=== PATIENT | male | born 1955 | race Caucasian/White ===

== ENCOUNTER 2020-06-15 10:55 | Outpatient (REF) | payer MEDICARE, SELFPAY ==
[2020-06-15 16:50] LABS: Anion Gap 11 (12-20); Blood Urea Nitrogen 29 mg/dL (9-16); Calcium 10.1 mg/dL (8.4-10.2); Carbon Dioxide 30 mmol/L (22-29); Chloride 104 mmol/L (96-108); Estimated Glomerular Filt Rate > 60; Glucose Random 112 mg/dL (60-115); Potassium 3.8 mmol/l (3.3-5.1); Sodium 141 mmol/L (135-145)
== END 2020-06-15 10:56 | disposition home or self-care (01) ==
LOC: HO.LAB 10:55
PROVIDERS: PCP Internal Medicine; Visit Provider Internal Medicine Cardiovascular Disease
DX: I11.9 Hypertensive heart disease without heart failure (principal); E78.5 Hyperlipidemia, unspecified; E11.9 Type 2 diabetes mellitus without complications; G47.33 Obstructive sleep apnea (adult) (pediatric); E66.9 Obesity, unspecified; Z79.899 Other long term (current) drug therapy; Z79.84 Long term (current) use of oral hypoglycemic drugs
CPT/HCPCS: 80048; 82088; 82533; 99212

== ENCOUNTER 2020-06-24 10:02 | Outpatient (REF) | payer MEDICARE, SELFPAY ==
--- NOTE | 2020-06-24 10:05 | US_ITS ---
EXAMINATION: US RETROPERITONEAL LIMITED (RENAL ONLY) US RENAL DOPPLER CLINICAL INFORMATION: Hypertension. COMPARISON: Previous CT of the abdomen and pelvis February 2019 TECHNIQUE: Doppler color and padilla-scale evaluation of the kidneys, bilateral renal arteries and aorta including waveform spectral analysis. FINDINGS: RIGHT KIDNEY: 11.3 x 5.3 x 5.2 cm (SAG x AP x TRV). The kidney is normal in size, contour, and echogenicity. Renal cortical thickness is normal. There is a 2.3 x 2.6 x 2.6 cm peripelvic cyst. No calculi or mass. No hydronephrosis. LEFT KIDNEY: 12.5 x 5.7 x 4 cm (SAG x AP x TRV). The kidney is normal in size, contour, and echogenicity. Renal cortical thickness is normal. There is a 1.2 x 1.3 x 1.2 cm simple cyst in the upper pole. No calculi or focal mass. No hydronephrosis. RENAL DOPPLER EXAM: The peak systolic velocity of the mid abdominal aorta is slightly elevated measuring 119 cm/s making it suboptimal for evaluation of renal artery to aorta ratio. Right renal artery peak systolic velocities are normal measuring 133 cm/s proximally, 144 cm/s in the midportion and 158 cm/s distally. Renal artery to aorta ratio is suboptimal due to elevated peak systolic velocity in the mid abdominal aorta. This measures 1.1 cm on the right. Resistive indices in the segmental renal arteries in the right kidney are normal measuring 0.7. The right renal vein is patent. The left renal artery is slightly difficult to visualize due to bowel gas. Left renal artery peak systolic velocities are normal measuring 123 cm/s proximally, 81 cm/s in the midportion and 68 cm/s distally. Again, evaluation of renal artery to aorta ratio is suboptimal due to elevated peak systolic velocity in the aorta. This measures 1. Resistive indices in the segmental renal arteries in the left kidney are normal measuring 0.7. The left renal vein is patent. US/US renal doppler IMPRESSION: Bilateral renal cysts. No evidence of renal artery stenosis is seen. Slightly elevated peak systolic velocity in the mid abdominal aorta making calculation of the aortic renal artery to aorta ratio is suboptimal.
== END 2020-06-24 10:03 | disposition home or self-care (01) ==
LOC: HO.HMGCX 10:02
PROVIDERS: PCP Internal Medicine; Visit Provider Internal Medicine Cardiovascular Disease
DX: I11.9 Hypertensive heart disease without heart failure (principal)
CPT/HCPCS: 76775; 93975

== ENCOUNTER → 2020-07-12 15:00 | Outpatient (BNVA) | payer MEDICARE, SELFPAY | PROVIDERS: PCP Student in an Organized Health Care Education/Training Program; Visit Provider Internal Medicine Cardiovascular Disease | DX: I11.9 Hypertensive heart disease without heart failure (principal) | CPT/HCPCS: 99212 ==

== ENCOUNTER → 2020-10-10 15:12 | Outpatient (BNVA) | payer MEDICARE, SELFPAY | PROVIDERS: PCP Student in an Organized Health Care Education/Training Program; Visit Provider Internal Medicine Cardiovascular Disease | DX: I11.9 Hypertensive heart disease without heart failure (principal) | CPT/HCPCS: 99212 ==

== ENCOUNTER → 2021-04-20 13:50 | Outpatient (BNVA) | payer MEDICARE, SELFPAY | PROVIDERS: PCP Student in an Organized Health Care Education/Training Program; Visit Provider Internal Medicine Cardiovascular Disease | DX: I11.9 Hypertensive heart disease without heart failure (principal); I10 Essential (primary) hypertension; I45.10 Unspecified right bundle-branch block; E78.5 Hyperlipidemia, unspecified; E66.9 Obesity, unspecified; G47.33 Obstructive sleep apnea (adult) (pediatric); Z99.89 Dependence on other enabling machines and devices; Z79.84 Long term (current) use of oral hypoglycemic drugs; Z79.899 Other long term (current) drug therapy | CPT/HCPCS: 93005; 99212 ==

== ENCOUNTER → 2021-08-15 08:35 | Outpatient (REF) | payer MEDICARE, SELFPAY ==
--- NOTE | 2021-08-15 08:38 | CA_ITS ---
Transthoracic Echocardiogram Patient (Last, First, Middle): Cory Rodriguez, Gender: Male Date of : 1955 Age: 65 Procedure Date: 08/15/2021 Procedure Type: Transthoracic Echocardiogram Location: OP Height: 175.26 cm Weight: 95.26 kg BSA: 2.11 m2 Heart Rate: bpm BP: 133 / 79 mmHg Dice Person: FOREIGN Referring MD: Cameron Rain MD Symptoms: I11.9 - Hypertensive heart disease without heart failure Study Quality: Good ECG Rhythm: Sinus Conclusions: - The left ventricular systolic function is normal. The visually estimated ejection fraction is between 65-70%. - Possible basal inferior hypokinesis, but can also be technical. - No obvious valvular pathology seen on this study. Findings Left Ventricle Normal left ventricular cavity size. There is moderately increased left ventricular wall thickness. The left ventricular systolic function is normal. The visually estimated ejection fraction is between 65-70%. Diastolic function is normal for age. Possible basal inferior hypokinesis, but can also be technical. LV peak GLS -22.4%. Right Ventricle Normal right ventricular cavity size and systolic function. Atria Both atria are normal in size. Aortic Valve There is a normal trileaflet aortic valve. There is no aortic valve stenosis. There is no aortic valve regurgitation. Mitral Valve The mitral valve appears normal. There is no mitral valve regurgitation. There is no mitral valve stenosis. Pulmonic Valve The pulmonic valve was not well visualized. Tricuspid Valve Normal tricuspid valve structure. There is trace tricuspid valve regurgitation. The pulmonary artery systolic pressure is normal. Great Vessels The aortic annulus, sinuses of valsalva, and asc aorta are normal in size. Venous The inferior vena cava is normal in size and collapses greater than 50% with inspiration. Pericardium/Pleural There is no evidence of pericardial effusion. Prior Study Comparison No significant change compared to prior study dated: 12/08/2019. Inferior wall finding more obvious in current study, but likely unchanged. Recommendations, Care & Conclusions No obvious valvular pathology seen on this study. Measurements M-Mode Liner Measurements Normals - Women/Men LVIDd: 4.93 3.9-5.3/4.2-5.9 cm LVIDd Index: 2.34 1.9-3.2 cm/m2 LVIDs: 2.03 2.0-3.8 cm LVPWd: 0.92 0.6-0.9/0.6-1.0 cm M-Mode Volumes LV EDV: 114.00 LV ESV: 13.20 2D Linear Measurements IVSd: 1.60 0.6-0.9/0.6-1.0 cm LVIDd: 4.69 3.9-5.3/4.2-5.9 cm LVIDd Index: 2.22 2.4-3.2/2.2-3.1 cm/m2 LVIDs: 1.81 2.0-3.6 cm LVPWd: 1.29 0.7-1.1 cm LA Diam: 3.80 2.7-3.8/3.0-4.0 cm LAIDs Index: 1.80 1.5-2.3 cm/m2 LV Mass: 345.65 67-162/88-224 g LV Mass Index: 163.82 43-95/49-115 g/m2 LVOT Diam: 2.10 3.0+(-)1.3 cm 2D Systolic Function EF 4C: 71.70 >55% EF 2C: 79.10 >55% EF BiP: 74.20 >55% M-Mode Systolic Function FS: 58.80 27-47/25-43% LVEF: 88.40 >55% Mitral Valve MV Pk E: 0.70 MV PK A: 0.75 MV Decel Time: 232.00 E/A: 0.90 PHT: 68.00 MVA PHT: 3.24 Decel Geary: 3.01 Aortic Valve AoV Pk Jeo: 1.36 AoV Pk Grad: 7.00 LVOT LVOT Pk Joe: 1.16 LVOT Mn Joe: 0.86 LVOT VTI: 0.27 LVOT Pk Grad: 5.00 LVOT Mn Grad: 3.00 LVOT Diam: 2.10 LVOT Area: 3.46 Diastolic Function MV Pk E: 0.70 MV Pk A: 0.75 E/A: 0.90 Right Ventricle TAPSE (mm): 2.53 Tricuspid Valve TR Pk Joe: 2.05 TR Pk Grad: 17.00 RA Press: 3.00 RVSP: 20.00 Great Vessels Aorta Ao Asc: 3.30 2.1-3.4 cm Updated in Other Vendor System with Status of Final Edson Johnson MD electronically signed on 08/15/2021 4:38:13 PM with status of Final
== END ==
LOC: HO.CARD 08:35
PROVIDERS: PCP Internal Medicine; Visit Provider Internal Medicine Cardiovascular Disease
DX: I11.9 Hypertensive heart disease without heart failure (principal)
CPT/HCPCS: 93306

== ENCOUNTER → 2021-10-17 08:29 | Outpatient (BNVA) | payer MEDICARE, SELFPAY | PROVIDERS: PCP Internal Medicine; Referring Provider Internal Medicine; Visit Provider Internal Medicine Cardiovascular Disease | DX: I11.9 Hypertensive heart disease without heart failure (principal); E11.9 Type 2 diabetes mellitus without complications; E78.5 Hyperlipidemia, unspecified; G47.33 Obstructive sleep apnea (adult) (pediatric); Z99.89 Dependence on other enabling machines and devices; Z79.84 Long term (current) use of oral hypoglycemic drugs; Z79.899 Other long term (current) drug therapy | CPT/HCPCS: 99212 ==

== ENCOUNTER 2022-01-25 08:39 | Outpatient (REF) | payer MEDICARE, SELFPAY ==
--- NOTE | 2022-01-25 | EMG_ITS ---
Left tibial and peroneal motor studies were performed. Left superficial peroneal and sural sensory studies were performed. Both lateral femoral cutaneous sensory studies were performed. Tibial H-reflex was obtained and paraspinal muscles were tested with a needle. IMPRESSION: 1. Left lateral femoral cutaneous neuropathy. 2. 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 3. Chronic left lower lumbar radiculopathy. MD JACKIE Suresh/VANESSA / [id number]
== END 2022-01-25 08:40 | disposition home or self-care (01) ==
LOC: HO.NEURO 08:39
PROVIDERS: Visit Provider Internal Medicine
DX: G62.9 Polyneuropathy, unspecified (principal); R20.8 Other disturbances of skin sensation
CPT/HCPCS: 95886; 95910

== ENCOUNTER → 2022-10-12 07:58 | Outpatient (REF) | payer MEDICARE, SELFPAY ==
--- NOTE | 2022-10-12 08:00 | CA_ITS ---
Transthoracic Echocardiogram Patient (Last, First, Middle): Cory Rodriguez, Gender: Male Date of : 1955 Age: 66 Procedure Date: 10/12/2022 Procedure Type: Transthoracic Echocardiogram Location: OP Height: 175.26 cm Weight: 97.52 kg BSA: 2.13 m2 Heart Rate: 56 bpm BP: 125 / [address] Cutter: ZACH Referring MD: Cameron Rain MD Symptoms: I11.9 - Hypertensive heart disease without heart failure Study Quality: Adequate Conclusions: - Normal left ventricular cavity size. There is moderately increased left ventricular wall thickness. The left ventricular systolic function is hyperdynamic. The visually estimated ejection fraction is >70%. - The basal inferior segment is akinetic. - Mildly increased right ventricular cavity size. There is normal right ventricular systolic function. - The left atrium is mildly dilated. The right atrium is mildly dilated. Findings Left Ventricle Normal left ventricular cavity size. There is moderately increased left ventricular wall thickness. The left ventricular systolic function is hyperdynamic. The visually estimated ejection fraction is >70%. There is evidence of regional wall motion abnormalities. Abnormal diastolic function is noted. Spectral Doppler is indicative of an impaired relaxation filling pattern. E/E prime ratio is between 8 and 15 consistent with indeterminate filling pressures. Wall Motion Rest Echo Findings The basal inferior segment is akinetic. Right Ventricle Mildly increased right ventricular cavity size. There is normal right ventricular systolic function. Atria The left atrium is mildly dilated. The right atrium is mildly dilated. Aortic Valve Normal aortic valve structure and function. There is no aortic valve stenosis. There is no aortic valve regurgitation. Mitral Valve The mitral valve appears normal. There is trace mitral valve regurgitation. There is no mitral valve stenosis. Pulmonic Valve Normal pulmonic valve structure and function. There is trace pulmonic valve regurgitation. Tricuspid Valve Normal tricuspid valve structure and function. There is no tricuspid valve regurgitation. Normal right atrial pressure. There is no evidence of pulmonary hypertension. Great Vessels The pulmonary artery was not well visualized. There is mild dilatation of the sinuses of Valsalva measuring 3.90 cm, mild dilatation of the ascending aorta measuring 3.50 cm, and mild dilatation of the aortic arch measuring 3.40 cm. Venous The inferior vena cava is normal in size and collapses greater than 50% with inspiration. Pericardium/Pleural There is no evidence of pericardial effusion. Prior Study Comparison Changes noted compared to prior study dated: 08/15/2021. Both atria are mildly dilated. RV is mildly dilated. Mild dilation of aorta. Measurements 2D Linear Measurements IVSd: 1.37 0.6-0.9/0.6-1.0 cm LVIDd: 4.69 3.9-5.3/4.2-5.9 cm LVIDd Index: 2.20 2.4-3.2/2.2-3.1 cm/m2 LVIDs: 3.10 2.0-3.6 cm LVPWd: 1.48 0.7-1.1 cm LA Diam: 4.00 2.7-3.8/3.0-4.0 cm LAIDs Index: 1.88 1.5-2.3 cm/m2 LV Mass: 338.52 67-162/88-224 g LV Mass Index: 158.93 43-95/49-115 g/m2 LVOT Diam: 2.20 3.0+(-)1.3 cm 2D Systolic Function EF 4C: 70.10 >55% EF 2C: 65.00 >55% EF BiP: 67.80 >55% Mitral Valve MV Pk E: 0.78 MV PK A: 1.00 MV Decel Time: 297.00 E/A: 0.80 E'Lateral: 6.85 E'Medial: 5.87 E/E' Med: 13.20 E/E' Lat: 11.30 PHT: 87.00 MVA PHT: 2.53 Decel Bartholomew: 2.62 Aortic Valve AoV Pk Joe: 1.42 AoV Mn Joe: 1.09 AoV VTI: 0.38 AoV Pk Grad: 8.00 Aov Mn Grad: 5.00 KRYSTYNA Cont.VTI: 2.94 LVOT LVOT Pk Joe: 1.21 LVOT Mn Joe: 0.84 LVOT VTI: 0.29 LVOT Pk Grad: 6.00 LVOT Mn Grad: 3.00 LVOT Diam: 2.20 LVOT Area: 3.80 Diastolic Function MV Pk E: 0.78 MV Pk A: 1.00 E/A: 0.80 E'Medial: 5.87 E/E' Med: 13.20 E' Laterial: 6.85 E/E' Lat: 11.30 Right Ventricle TAPSE (mm): 34.00 TVS' Joe: 15.20 Tricuspid Valve TR Pk Joe: 1.25 TR Pk Grad: 6.00 RA Press: 3.00 RVSP: 9.00 Great Vessels Aorta Sinus of Valsalva: 3.90 2.0-3.5 cm Ao Asc: 3.50 2.1-3.4 cm Ao Arch: 3.40 Pulmonary Valve PV Pk Joe: 1.13 Peak PV Grad: 5.00 Updated in Other Vendor System with Status of Final Cornelio Barillas MD electronically signed on 10/14/2022 12:38:37 PM with status of Final
== END ==
LOC: HO.CARD 07:58
PROVIDERS: PCP Internal Medicine; Visit Provider Internal Medicine Cardiovascular Disease
DX: I11.9 Hypertensive heart disease without heart failure (principal)
CPT/HCPCS: 93306

== ENCOUNTER 2022-11-22 15:08 | Outpatient (REF) | payer MEDICARE, SELFPAY ==
[2022-11-22 16:57] LABS: MANUAL DIFF FLAG NO
[2022-11-22 17:41] LABS: Basophils Percent Auto 0.6 % (0-2); Eosinophils Absolute Auto 0.1 X10*3/uL (0.0-0.4); Eosinophils Percent Auto 1.3 % (0-4); Hematocrit 36.4 % (42.0-52.0); Imm Gran Abs Auto 0.01 X10*3/uL (0.00-0.03); Imm Gran Pct Auto 0.2 % (0.0-0.4); Lymphocytes Absolute Auto 1.5 X10*3/uL (1.2-4.9); Lymphocytes Percent Auto 27.6 % (20-40); Mean Corpuscular Hemoglobin 29.2 pg (27.0-33.0); Mean Corpuscular Volume 88.6 fL (80.0-98.0); Monocytes Absolute Auto 0.5 X10*3/uL (0.1-1.2); Monocytes Percent Auto 8.3 % (2-11); Neutrophils Absolute Auto 3.4 x10*3/uL (2.0-8.3); Platelet Count 165 X10*3/uL (160-400); Red Blood Count 4.11 X10*6/uL (4.60-5.80); Red Cell Distribution Width 13.2 % (11.0-16.0); White Blood Count 5.4 X10*3/uL (4.8-10.8)
[2022-11-22 17:58] LABS: Anion Gap 14 (12-20); Blood Urea Nitrogen 41 mg/dL (9-16); Calcium 10.4 mg/dL (8.4-10.2); Carbon Dioxide 28 mmol/L (22-29); Chloride 106 mmol/L (96-108); Estimated Glomerular Filt Rate 38; Glucose Random 263 mg/dL (60-115); Sodium 144 mmol/L (135-145)
== END 2022-11-22 15:09 | disposition home or self-care (01) ==
LOC: HO.LAB 15:08
PROVIDERS: PCP Internal Medicine; Visit Provider Nurse Practitioner Family
DX: I48.91 Unspecified atrial fibrillation (principal); E11.9 Type 2 diabetes mellitus without complications; I11.9 Hypertensive heart disease without heart failure; G47.33 Obstructive sleep apnea (adult) (pediatric)
CPT/HCPCS: 36415; 80048; 85025; 93005; 99212

== ENCOUNTER → 2022-12-13 09:38 | Outpatient (REF) | payer MEDICARE, SELFPAY ==
--- NOTE | ~2022-12-13 | NM_ITS ---
Myocardial perfusion study Indication: Atrial fibrillation to evaluate for myocardial ischemia Technique: The patient was brought in for a Lexiscan perfusion study on 12/13/2022. Patient performed low-level exercise and was injected 0.4 mg of Lexiscan intravenously. Within a minute of injection, 30 mCi of sestamibi was given intravenously. Images were obtained using the SPECT gamma camera interlaced with the gating device. Images were obtained in supine position. Resting perfusion study was performed on 12/17/2022. Patient was administered 30 mCi of sestamibi intravenously at rest. Images were then obtained in supine position. Images obtained with and without CT attenuation. Total DLP 101 mGy-cm. Images were processed with the software and compared side to side in short axis, horizontal long axis and vertical long axis views. Findings: The stress perfusion study showed both attenuated as well as non attenuated corrected images show normal uptake of radiotracer in all segments of LV myocardium.. The gated study shows normal LV systolic function with calculated LVEF of 75%. LV cavity is normal in size. The gated study shows normal systolic wall thickening and contraction of segments. Resting study shows no change in perfusion pattern compared to stress perfusion study. Gating at rest reveals normal systolic wall motion with ejection fraction at 59%. The findings are consistent with normal myocardial perfusion. NM/NM cardiolite stress test Impression: 1. Myocardial perfusion imaging study shows normal myocardial perfusion 2. Gated LVEF is 69% 3. Transient ischemic dilatation not present EKG is nondiagnostic for ischemia
--- NOTE | 2022-12-13 09:42 | HM_ITS ---
Conclusion: 1. Patient was monitored for total period of 2 days and 23 hours 2. Baseline was normal sinus rhythm with average heart of 69 beats per minute 3. No significant pauses noted 4. Frequent PVCs noted with total burden of 1.4% with 3 short runs of wide complex suggestive of nonsustained VT with fastest at 143 beats per minute in longest at 9 beats 5. Occasional PACs noted 6. Patient reported 1 event with symptoms of shortness of breath that correlated with isolated PAC and PVC MTDD
--- NOTE | 2022-12-13 09:42 | CA_ITS ---
Acquisition Time: 2022-12-13 10:13:05 Total Exercise Time: 00:06:00 Test Indications: ,AFIB Medications: SEE EMAR Protocol: VICKEY Max HR: 137 BPM 90% of Pred: 151 BPM Max BP: 172/060 mmHG Max Work Load: 7.0 METS Exercise stress test exercise 6 min of Vickey protocol achieivng 90% MPHR, with mild SOB, without chest discomfort, with isolated PVCs and one ventricular cuplet, with normotensive response to exericse, with T wave abnormalities at baseline lead 3. aVF, V4-V6, then with 1mm horizontal ST depression V5-V6. Nondiagnostic in the setting of baseline abnormality. Nuclear images pending. Test reviewed with Dr. Barillas Referred By: Kavitha Hudson Overread By: KAVITHA HUDSON
== END ==
LOC: HO.CARD 09:38
PROVIDERS: Visit Provider Nurse Practitioner Family
DX: I48.91 Unspecified atrial fibrillation (principal)
CPT/HCPCS: 78452; 93017; 93242; A9500; J0280; J2785

== ENCOUNTER → 2022-12-31 12:29 | Outpatient (BNVA) | payer MEDICARE, SELFPAY | PROVIDERS: PCP Internal Medicine; Referring Provider Internal Medicine; Visit Provider Internal Medicine Cardiovascular Disease | DX: I48.0 Paroxysmal atrial fibrillation (principal); I11.9 Hypertensive heart disease without heart failure; Z79.01 Long term (current) use of anticoagulants; Z79.899 Other long term (current) drug therapy | CPT/HCPCS: 99212 ==

== ENCOUNTER 2023-04-22 09:50 | Outpatient (REF) | payer MEDICARE, SELFPAY | END 2023-04-22 09:51 | disposition home or self-care (01) | LOC: HO.CHCLDS 09:50 | PROVIDERS: Visit Provider Internal Medicine | DX: Z13.89 Encounter for screening for other disorder (principal) ==

== ENCOUNTER 2023-04-23 08:26 | Outpatient (REF) | payer MEDICARE, SELFPAY ==
[2023-04-23 14:44] LABS: Estimated Average Glucose 146 mg/dL; Hemoglobin A1c % 6.7 % (<6.0)
[2023-04-23 14:57] LABS: Alanine Aminotransferase 21 U/L (0-40); Alkaline Phosphatase 60 U/L (39-117); Anion Gap 14 (12-20); Aspartate Amino Transferase 18 U/L (5-37); Bilirubin Total 0.3 mg/dL (0.0-1.0); Blood Urea Nitrogen 30 mg/dL (9-16); Calcium 10.1 mg/dL (8.4-10.2); Carbon Dioxide 25 mmol/L (22-29); Chloride 107 mmol/L (96-108); Cholesterol 181 mg/dL (<200); Estimated Glomerular Filt Rate > 60; Glucose Fasting 130 mg/dL (60-99); HDL Cholesterol 44 mg/dL (>40); LDL Cholesterol Calculated 116 mg/dL (<100); Potassium 3.7 mmol/L (3.3-5.1); Sodium 142 mmol/L (135-145); Total Protein 6.7 g/dL (6.5-8.0); Triglycerides 108 mg/dL (<150)
== END 2023-04-23 08:27 | disposition home or self-care (01) ==
LOC: HO.CHCLDS 08:26
PROVIDERS: Visit Provider Internal Medicine
DX: E11.22 Type 2 diabetes mellitus with diabetic chronic kidney disease (principal); N18.31 Chronic kidney disease, stage 3a; E11.65 Type 2 diabetes mellitus with hyperglycemia
CPT/HCPCS: 36415; 80053; 80061; 83036

== ENCOUNTER 2023-07-31 10:40 | Outpatient (AMB) | payer MEDICARE, SELFPAY ==
[2023-07-31 10:42] VITALS: BP 110/68; PULSE 65; BMI 31.0
--- NOTE | 2023-07-31 10:42 | MHC.OFFVIS ---
Intake Vital Signs 07/31/23 10:42 Height 5 ft 10 in Weight 216 lb 0.848 oz BMI 31.0 BP 110/68 Blood Pressure Location Lt brachial Position Sitting Pulse 65 Intake Visit Reasons: 6 month f/u with ekg Intake Note: 6 month follow-up feeling good has a colonscpy 08/23 needs direction on eliquis [employer] Installer Required: No Allergies No Known Allergies [No Known Allergies*] Allergy (Verified 11/22/22 15:43) Medication List - Last Reconciled 07/31/23 by Cameron Rain MD amlodipine 10 mg PO DAILY apixaban (Eliquis) 5 mg PO BID ascorbate calcium (vitamin C) 500 mg PO DAILY atorvastatin 80 mg PO BEDTIME chlorthalidone 25 mg PO DAILY empagliflozin (Jardiance) 25 mg PO QAM ferrous sulfate 325 mg PO DAILY finasteride 5 mg PO DAILY losartan 100 mg PO DAILY metformin 1,000 mg PO BID metoprolol succinate ER mg PO multivitamin,[id number] (Complete Multivitamin tablet) 1 tab PO DAILY tamsulosin 0.4 mg PO DAILY HPI HPI Comments History of Present Illness Details Sukh comes for follow-up. He has had 1 episode of atrial fibrillation said while he was sitting on the couch she felt funny and took his pulse and was irregular. This lasted for about 10 minutes. There was no obvious triggers. He has not had any other episodes since then. He denies any exertional chest pain. Denies any worsening shortness of breath, orthopnea, PND, leg edema. No lightheadedness, syncope. No bleeding issues or neurologic events. [facility] Medical History Afib HTN (hypertension) Uncontrolled hypertension Hypertensive heart disease Obstructive sleep apnea Hyperlipidemia Diabetes mellitus Obesity Surgical History Hx of knee surgery Hx of transurethral resection of prostate History of nasal surgery Family History Father CVD (cardiovascular disease) Mother Cancer Review of Systems Const Denies chills, Denies fatigue, Denies fever(s), Denies frequent falls, Denies weakness, Denies weight gain and Denies weight loss ENT Denies dizziness Card Denies chest pain, Denies leg edema, Denies lightheadedness, Denies palpitations, Denies dyspnea, Denies dyspnea on exertion, Denies orthopnea and Denies other (loss of consciousness) Resp Denies cough, Denies dyspnea and Denies dyspnea on exertion GI Denies hematochezia and Denies change in stool character Musc Denies abnormal gait, Denies muscle weakness, Denies numbness, Denies radiating pain into limb and Denies tingling Neuro Denies abnormal gait, Denies dizziness, Denies frequent falls, Denies numbness, Denies tingling and Denies weakness Endo Denies fatigue and Denies palpitations Physical Exam Vital Signs: Last Vital Signs Pulse 65 07/31/23 10:42 BP 110/68 07/31/23 10:42 BMI result Body Mass Index 31.0 Const General: healthy appearing, comfortable and no acute distress Orientation/consciousness: patient oriented x3 Neck Neck: Yes normal visual inspection and Yes no JVD Resp Effort & Inspection: normal respiratory effort Auscultation: clear to auscultation bilaterally, no crackles, no rales, no rhonchi and no wheezes Cardio Jugular venous distension: no JVD Rate: regular rate Rhythm: regular rhythm Heart sounds: S1 normal heart sound present, S2 normal heart sound present, no gallops, no murmurs and no rubs Neuro General: patient oriented x3 Extrem General: Yes normal to inspection Psych Appearance: grossly normal Mental Status: mental status grossly normal Speech and movement: Normal speech and movement present Assessment & Plan Assessment & Plan (1) Paroxysmal atrial fibrillation: Code(s): I48.0 - Paroxysmal atrial fibrillation Plan: Paroxysmal atrial fibrillation which has remained suppressed. One short episode in June in the last 6 months. This is minimal burden at this point time. Discussed with him about management. Will continue pursue rhythm control approach however does not require antiarrhythmic drug therapy at this point time unless he has recurrent episodes which are more frequent and longer lasting or require cardioversion. Continue aggressive risk factor modification. Continue CPAP therapy. Continue aggressive control blood pressure. CHADSVASc score of 3. Continue full oral anticoagulation, currently on Eliquis 5 mg b.i.d.. He is planning to undergo colonoscopy in near future. If this needs to happen, Eliquis can be held for 2-3 days prior to the procedure with associated risk. Resume as soon as possible after the procedure. Semi annual renal function test should be pursued. (2) Hypertensive heart disease: Code(s): I11.9 - Hypertensive heart disease without heart failure Plan: Hypertensive heart disease without overt signs of congestive heart failure. He has moderate LVH. Continue aggressive blood pressure control which is currently well optimized on current medications. Continue CPAP therapy. Advised to monitor blood pressure at home maintain a log. Goal blood pressure less than 130/84. Signs and symptoms of heart failure were discussed. Salt loading to be avoided. Advised to participate in regular physical activity and weight loss. Follow up in the clinic in 6 months after an echocardiogram. Thank you for allowing me to partake in his care Coding Level of Care Code Est Pt Level 4 (75269) Diagnoses Paroxysmal atrial fibrillation I48.0 Hypertensive heart disease I11.9
== END 2023-07-31 11:04 | disposition home or self-care (01) ==
PROVIDERS: PCP Internal Medicine; Visit Provider Internal Medicine Cardiovascular Disease
DX: I48.0 Paroxysmal atrial fibrillation (principal); I11.9 Hypertensive heart disease without heart failure
CPT/HCPCS: 99214

== ENCOUNTER → 2023-07-31 10:40 | Outpatient (BNVA) | payer MEDICARE, SELFPAY | PROVIDERS: PCP Internal Medicine; Visit Provider Internal Medicine Cardiovascular Disease | DX: I48.0 Paroxysmal atrial fibrillation (principal); I11.9 Hypertensive heart disease without heart failure | CPT/HCPCS: 99212 ==

== ENCOUNTER 2023-08-23 09:00 | Day surgery (SDC) | payer MEDICARE, SELFPAY ==
[2023-08-21 11:55] VITALS: BMI 31.0
--- NOTE | 2023-08-22 09:40 | P.CONAN_ITS ---
Documented by User: Sugar Kent NP 08/22/23 09:44 HPI - Anesthesia Eval Consult details Narrative: 67yo M for Colonoscopy Eliquis for afib [place] [facility] [place] Stable at last office visit 07/2023 [facility] Active Problems Active Problems: All Active Problems (Updated 08/21/23 @ 12:01 by Niya Ortiz RN) Paroxysmal atrial fibrillation (Acute) HTN (hypertension) (Acute) Hypertensive heart disease (Acute) Obstructive sleep apnea (Acute) Hyperlipidemia (Acute) Diabetes mellitus (Acute) Obesity (Acute) Past Medical History Medical History (Updated 08/21/23 @ 12:01 by Niya Ortiz RN) Afib HTN (hypertension) Uncontrolled hypertension Hypertensive heart disease Obstructive sleep apnea Hyperlipidemia Diabetes mellitus Obesity Family History Family History Father CVD (cardiovascular disease) Mother Cancer Surgical History Surgical History (Updated 08/21/23 @ 12:01 by Niya Ortiz RN) Hx of hemorrhoidectomy H/O colonoscopy Hx of knee surgery Hx of transurethral resection of prostate History of nasal surgery Social History Social History Advance Directives: No Advance Directives Information Provided: Yes Meds Allergies Allergy/AdvReac Type Severity Reaction Status Date / Time No Known Allergies Allergy Verified 11/22/22 15:43 [No Known Allergies*] Home Medications Medication Instructions Recorded Confirmed Last Taken Type ascorbate calcium (vitamin C) 500 500 mg PO DAILY 06/15/20 08/21/23 Unknown History mg tablet chlorthalidone 25 mg tablet 25 mg PO DAILY 06/15/20 08/21/23 Unknown History ferrous sulfate 325 mg (65 mg 325 mg PO DAILY 06/15/20 08/21/23 08/16/23 History iron) tablet finasteride 5 mg tablet 5 mg PO DAILY 06/15/20 08/21/23 Unknown History losartan 100 mg tablet 100 mg PO DAILY 06/15/20 08/21/23 Unknown History metformin 1,000 mg tablet 1,000 mg PO BID 06/15/20 08/21/23 Unknown History multivitamin,uv-gzad-hdakidvx 1 tab PO DAILY 06/15/20 08/21/23 Unknown History (Complete Multivitamin tablet) tamsulosin 0.4 mg capsule 0.4 mg PO DAILY 06/15/20 08/21/23 Unknown History empagliflozin 25 mg tablet 25 mg PO QAM 04/20/21 08/21/23 Unknown History (Jardiance) atorvastatin 80 mg tablet 80 mg PO BEDTIME 07/31/23 08/21/23 Unknown History metoprolol succinate 100 mg 200 mg PO QAM 07/31/23 08/21/23 Unknown History tablet,extended release 24 hr Exam Height,Weight and Vital Signs: Height 5 ft 10 in Weight 97.976 kg Pertinent Lab Results Pertinent Lab Results: Laboratory Tests 11/22/22 04/23/23 16:56 08:30 WBC 5.4 Hgb 12.0 L Hct 36.4 L Plt Count 165 Sodium 142 Potassium 3.7 Chloride 107 Carbon Dioxide 25 BUN 30 H Creatinine 1.19 Narrative Narrative: ECHO 2022 Conclusions: - Normal left ventricular cavity size. There is moderately increased left ventricular wall thickness. The left ventricular systolic function is hyperdynamic. The visually estimated ejection fraction is >70%. - The basal inferior segment is akinetic. - Mildly increased right ventricular cavity size. There is normal right ventricular systolic function. - The left atrium is mildly dilated. The right atrium is mildly dilated. NM cardiolite stress test 12/2022 Impression: 1. Myocardial perfusion imaging study shows normal myocardial perfusion 2. Gated LVEF is 69% 3. Transient ischemic dilatation not present EKG is nondiagnostic for ischemia Holter 2022 Conclusion: 1. Patient was monitored for total period of 2 days and 23 hours 2. Baseline was normal sinus rhythm with average heart of 69 beats per minute 3. No significant pauses noted 4. Frequent PVCs noted with total burden of 1.4% with 3 short runs of wide complex suggestive of nonsustained VT with fastest at 143 beats per minute in longest at 9 beats 5. Occasional PACs noted 6. Patient reported 1 event with symptoms of shortness of breath that correlated with isolated PAC and PVC Assessment and Plan Assessment Anesthesia Assessment: Chart Reviewed Documented by User: Jacques Espinoza MD 08/23/23 09:22 [facility] Past Medical History Medical History (Updated 08/21/23 @ 12:01 by Niya Ortiz RN) Afib HTN (hypertension) Uncontrolled hypertension Hypertensive heart disease Obstructive sleep apnea Hyperlipidemia Diabetes mellitus Obesity Family History Family History Father CVD (cardiovascular disease) Mother Cancer Family history of problems with anesthesia: No Surgical History Surgical History (Updated 08/21/23 @ 12:01 by Niya Ortiz RN) Hx of hemorrhoidectomy H/O colonoscopy Hx of knee surgery Hx of transurethral resection of prostate History of nasal surgery History of Problems with Anesthesia: No Social History Social History Advance Directives: No Advance Directives Information Provided: Yes Meds Allergies Allergy/AdvReac Type Severity Reaction Status Date / Time No Known Allergies Allergy Verified 11/22/22 15:43 [No Known Allergies*] Home Medications Medication Instructions Recorded Confirmed Last Taken Type ascorbate calcium (vitamin C) 500 500 mg PO DAILY 06/15/20 08/21/23 Unknown History mg tablet chlorthalidone 25 mg tablet 25 mg PO DAILY 06/15/20 08/21/23 Unknown History ferrous sulfate 325 mg (65 mg 325 mg PO DAILY 06/15/20 08/21/23 08/16/23 History iron) tablet finasteride 5 mg tablet 5 mg PO DAILY 06/15/20 08/21/23 Unknown History losartan 100 mg tablet 100 mg PO DAILY 06/15/20 08/21/23 Unknown History metformin 1,000 mg tablet 1,000 mg PO BID 06/15/20 08/21/23 Unknown History multivitamin,pw-stdl-jwiqhquc 1 tab PO DAILY 06/15/20 08/21/23 Unknown History (Complete Multivitamin tablet) tamsulosin 0.4 mg capsule 0.4 mg PO DAILY 06/15/20 08/21/23 Unknown History empagliflozin 25 mg tablet 25 mg PO QAM 04/20/21 08/21/23 Unknown History (Jardiance) atorvastatin 80 mg tablet 80 mg PO BEDTIME 07/31/23 08/21/23 Unknown History metoprolol succinate 100 mg 200 mg PO QAM 07/31/23 08/21/23 Unknown History tablet,extended release 24 hr Exam Airway Mallampati Class: III TM Dist: >3cm Neck ROM: Full Loose/Missing/Broken Teeth: No Heart: rrr Lungs: cta b/l Assessment and Plan Final Anesthetic Review Family History of Problems with Anesthesia: No History of Problems with Anesthesia: No NPO: Yes ASA Class: III Final Preanesthetic Review: No Changes in Pt Med Stat, Meds/Allgs Chart Reviewed, Consent Obtained/Reviewed and Anes Risks/Benef Reviewed Patient Risk: Intermediate Procedure Risk: Intermediate Anesthetic Plan Anesthetic Plan: MAC: Disposition: Standard PACU
[2023-08-23 09:08] VITALS: BP 122/79; PULSE 72; RESP 20; TEMP 36.1; O2SAT 97; BMI 29.8
[2023-08-23 09:19] LABS: Glucose, Whole Blood 156 mg/dL (60-115)
[2023-08-23] MEDS: Lactated Ringers 1,000 ML 100 ML IVCONT (09:35)
[2023-08-23 11:25] VITALS: BP 104/59; PULSE 71; RESP 18; TEMP 36.4; O2SAT 97
--- NOTE | 2023-08-23 11:29 | P.BOP_ITS ---
Brief Operative Note Date of Service: 08/23/23 Pre-op diagnosis: Screening Post-op diagnosis: other (Diverticulosis) Procedure: Colonoscopy to the cecum and TI Surgeon: Mathew Eduardo MD Anesthesia: MAC Was an Auto Radio Mechanic used for this Procedure?: No Estimated blood loss (mL): 0 Pathology: none sent Condition: stable Disposition: PACU
[2023-08-23 11:30] VITALS: BP 111/61; PULSE 68; RESP 17; O2SAT 96
[2023-08-23 11:40] VITALS: BP 125/77; PULSE 66; RESP 16; O2SAT 97
--- NOTE | 2023-08-23 11:53 | OP_ITS ---
DATE OF SERVICE: 08/23/2023 SURGEON: Mathew Eduardo MD INDICATIONS: The patient presents for evaluation of personal history of tubular adenoma of the colon and need for colorectal cancer screening. Full consent has been obtained from him for this, including risks of bleeding and perforation. PREOPERATIVE DIAGNOSIS: Colorectal cancer screening and personal history of tubular adenoma of the colon. POSTOPERATIVE DIAGNOSIS: Colorectal cancer screening and personal history of tubular adenoma of the colon, diverticulosis and internal hemorrhoids. PROCEDURE PERFORMED: Colonoscopy to the cecum and terminal ileum. ESTIMATED BLOOD LOSS: COMPLICATIONS: ANESTHESIA: Medication Used: Monitored anesthesia care. ASSISTANTS: SPECIMENS: DESCRIPTION OF PROCEDURE: The patient was placed in the left lateral decubitus position. The digital rectal exam revealed no abnormalities. The Olympus video pediatric colonoscope was entered into the rectum and advanced easily to the cecum. Once in the cecum, I did identify normal-appearing cecal pouch with appendiceal orifice and a normal-appearing ileocecal valve. The terminal ileum was cannulated and appeared normal. Scope was withdrawn back in the colon. The entire cecum and the ileocecal valve appeared normal. The scope was slowly withdrawn assessing all mucosal surfaces carefully. Preparation was excellent. I did not visualize any sign of polyps, colitis, nor angiodysplasia. There was a mild amount of sigmoid diverticulosis. In the rectum, scope was retroflexed visualizing internal hemorrhoids, but no other pathology. The rectal mucosa appeared normal. Scope was straightened and withdrawn from the patient. He tolerated the procedure well and was returned to the recovery area in stable condition. IMPRESSION: 1. Diverticulosis. 2. Internal hemorrhoids. PLAN: I would recommend a repeat colonoscopy in 5 years for further screening. He will, otherwise, see me on a p.r.n. basis. He was advised to resume his Eliquis, iron, and fish oil today. He will, otherwise, see me on a p.r.n. basis. This has been discussed with his . MD ISAAC Castillo/VANESSA / [id number]
[2023-08-23 11:55] VITALS: BP 131/80; PULSE 68; RESP 14; TEMP 36.4; O2SAT 98
== END 2023-08-23 12:01 | disposition home or self-care (01) ==
PROVIDERS: PCP Internal Medicine; Visit Provider Internal Medicine
PROC: 0DJD8ZZ Inspection of Lower Intestinal Tract, Via Natural or Artificial Opening Endoscopic (ICD-10-PCS; CPT 45378; principal; 2023-08-23 10:20)
DX: Z12.11 Encounter for screening for malignant neoplasm of colon (principal); K57.30 Diverticulosis of large intestine without perforation or abscess without bleeding; K64.8 Other hemorrhoids; Z86.010 Personal history of colon polyps; E11.9 Type 2 diabetes mellitus without complications; I10 Essential (primary) hypertension; E78.5 Hyperlipidemia, unspecified; I48.0 Paroxysmal atrial fibrillation; Z79.02 Long term (current) use of antithrombotics/antiplatelets; Z79.899 Other long term (current) drug therapy; Z79.84 Long term (current) use of oral hypoglycemic drugs; Z79.01 Long term (current) use of anticoagulants; Z79.82 Long term (current) use of aspirin
CPT/HCPCS: G0105; 82947; J2704

== ENCOUNTER 2023-10-14 09:16 | Outpatient (REF) | payer MEDICARE, SELFPAY ==
[2023-10-14 14:41] LABS: MANUAL DIFF FLAG NO
[2023-10-14 14:56] LABS: Basophils Percent Auto 0.4 % (0-2); Eosinophils Absolute Auto 0.1 X10*3/uL (0.0-0.4); Eosinophils Percent Auto 2.1 % (0-4); Hematocrit 35.9 % (42.0-52.0); Hemoglobin 11.6 g/dl (14.0-18.0); Imm Gran Abs Auto 0.01 X10*3/uL (0.00-0.03); Imm Gran Pct Auto 0.2 % (0.0-0.4); Lymphocytes Absolute Auto 1.1 X10*3/uL (1.2-4.9); Lymphocytes Percent Auto 23.1 % (20-40); Mean Corpuscular HGB Conc 32.3 g/dl (31.0-36.0); Mean Corpuscular Hemoglobin 28.7 pg (27.0-33.0); Mean Corpuscular Volume 88.9 fL (80.0-98.0); Mean Platelet Volume 10.3 fL (9.4-12.4); Monocytes Absolute Auto 0.5 X10*3/uL (0.1-1.2); Monocytes Percent Auto 9.5 % (2-11); Neutrophils Absolute Auto 3.1 x10*3/uL (2.0-8.3); Neutrophils Percent Auto 64.7 % (45-73); Platelet Count 149 X10*3/uL (160-400); Red Blood Count 4.04 X10*6/uL (4.60-5.80); Red Cell Distribution Width 13.5 % (11.0-16.0); White Blood Count 4.8 X10*3/uL (4.8-10.8)
[2023-10-14 15:24] LABS: Alanine Aminotransferase 22 U/L (0-40); Albumin Level 4.1 g/dL (3.5-5.0); Alkaline Phosphatase 58 U/L (39-117); Anion Gap 11 (12-20); Aspartate Amino Transferase 22 U/L (5-37); Bilirubin Total 0.5 mg/dL (0.0-1.0); Blood Urea Nitrogen 35 mg/dL (9-16); Calcium 10.4 mg/dL (8.4-10.2); Carbon Dioxide 29 mmol/L (22-29); Chloride 107 mmol/L (96-108); Cholesterol 150 mg/dL (<200); Estimated Glomerular Filt Rate 51; Glucose Fasting 104 mg/dL (60-99); HDL Cholesterol 42 mg/dL (>40); LDL Cholesterol Calculated 85 mg/dL (<100); Potassium 3.2 mmol/L (3.3-5.1); Sodium 144 mmol/L (135-145); Total Protein 7.2 g/dL (6.5-8.0); Triglycerides 118 mg/dL (<150)
== END 2023-10-14 09:17 | disposition home or self-care (01) ==
LOC: HO.CHCLDS 09:16
PROVIDERS: Visit Provider Internal Medicine
DX: E11.9 Type 2 diabetes mellitus without complications (principal)
CPT/HCPCS: 36415; 80053; 80061; 85025

== ENCOUNTER 2023-11-11 15:21 | Outpatient (AMB) | payer MEDICARE, SELFPAY ==
[2023-11-11 15:24] VITALS: BP 102/68; PULSE 63; O2SAT 97; BMI 31.6
--- NOTE | 2023-11-11 15:24 | MHC.OFFVIS ---
Vital Signs 11/11/23 15:24 Height 5 ft 9 in Weight 213 lb 13.574 oz BMI 31.6 BP 102/68 Blood Pressure Location Lt brachial Position Sitting Pulse 63 Pulse Source Pulse Oximeter Pulse Oximetry (%) 97 Oxygen Delivery Method Room Air Intake Visit Reasons: Obstructive sleep apnea Intake Note: pt is here for overdue follow up and is using every night, and would like a replacement. Guest Services Ambassador Required: No Allergies No Known Allergies [No Known Allergies*] Allergy (Verified 11/11/23 15:43) Medication List - Last Reconciled 11/11/23 by Daniel Amaya MD amlodipine 10 mg PO DAILY apixaban (Eliquis) 5 mg PO BID ascorbate calcium (vitamin C) 500 mg PO DAILY atorvastatin 80 mg PO BEDTIME chlorthalidone 25 mg PO DAILY empagliflozin (Jardiance) 25 mg PO QAM ferrous sulfate 325 mg PO DAILY finasteride 5 mg PO DAILY losartan 100 mg PO DAILY metformin 1,000 mg PO BID metoprolol succinate ER 200 mg PO QAM multivitamin,fv-yceo-abycmkbt (Complete Multivitamin tablet) 1 tab PO DAILY tamsulosin 0.4 mg PO DAILY Do you need a note to return to daycare/school/sports/work: No HPI HPI Obstructive sleep apnea: Details: Mr. Rodriguez 67 years old gentleman, comes back for follow-up for his CPAP usage. He was diagnosed to have obstructive sleep apnea back in 2014 by a polysomnogram study in the sleep lab. He has been treated with the pressure setting of 10 cm. Initially he had fullface mask. But subsequently it has been changed to nasal air ,. Which is working fine According to Mr. Rodriguez his CPAP device works fine without any problem. He travels quite a lot and takes the CPAP machine with him. On the night that he may go without CPAP, he has hard time to sleep. His weight has basically remained the same. [facility] Medical History Afib HTN (hypertension) Uncontrolled hypertension Hypertensive heart disease Obstructive sleep apnea Hyperlipidemia Diabetes mellitus Obesity Surgical History Hx of hemorrhoidectomy H/O colonoscopy Hx of knee surgery Hx of transurethral resection of prostate History of nasal surgery Family History Father CVD (cardiovascular disease) Mother Cancer Social History Patient Tobacco Use Status: Never used Tobacco Review of Systems Const All systems reviewed & are unremarkable except as noted in HPI and below Eyes Reports no additional complaints ENT Denies dizziness and Denies nasal congestion Card Denies chest pain, Denies leg edema, Denies lightheadedness, Denies dyspnea, Denies dyspnea on exertion and Denies orthopnea Resp Denies cough, Denies dyspnea and Denies dyspnea on exertion GI Reports no additional complaints Reports no additional complaints Musc Reports no additional complaints Neuro Denies dizziness Psych Reports no additional complaints Endo Reports no additional complaints Reese/Lymph Reports no additional complaints Aller/Immun Reports no additional complaints Physical Exam Vital Signs: Last Vital Signs Pulse 63 11/11/23 15:24 BP 102/68 11/11/23 15:24 Pulse Ox 97 11/11/23 15:24 Oxygen Delivery Method Room Air 11/11/23 15:24 BMI result Body Mass Index 31.6 Const General: healthy appearing, comfortable, no acute distress, alert and awake Orientation/consciousness: patient oriented x3 HEENT Head: Yes normal to inspection General nose exam: No nasal polyps present and No nasal discharge present Face and sinus: Yes sinuses nontender Mouth: oropharynx normal Throat: Yes posterior oropharynx normal Eyes General: appearance normal, both eyes and all related structures Neck Neck: Yes normal visual inspection, Yes no lymphadenopathy, Yes trachea midline and Yes no JVD Thyroid: Thyroid normal Chest Chest palpation & inspection: normal inspection of the chest, normal palpation of entire chest wall and no tenderness Resp Effort & Inspection: normal respiratory effort Auscultation: clear to auscultation bilaterally, no crackles, no rales and no wheezes Cardio Palpation: normal PMI Rate: regular rate Rhythm: regular rhythm Heart sounds: no gallops and no murmurs Peripheral pulses: Peripheral pulses 2+ throughout GI Palpation (GI): Soft to palpation, nontender, No hepatosplenomegaly present and no masses Auscultation: normal bowel sounds Back/Spine/Pelvis Thoracic/Lumbar Spine: thoracic and lumbar spine normal to inspection Skin General skin exam: no rashes or lesions noted Neuro General: patient oriented x3 and no focal motor deficits Cranial nerves: Yes CN's II-XII intact bilaterally Extrem General: Yes normal to inspection, Yes no clubbing, cyanosis or edema and Yes no calf tenderness Psych Appearance: grossly normal and well kempt Speech and movement: Normal speech and movement present Results Reviewed Results Reviewed: Compliance report for the last 30 nights is reviewed. He has used 29/30 nights, 97%. Average use per night 8 hours 4 minutes. Pressure 10 cm. There is a slight leak maximum 46.3 L. Residual AHI 3.1 Assessment & Plan Assessment & Plan (1) Obstructive sleep apnea: Comment: This gentleman is known case of obstructive sleep apnea since 2014. He has been treated with CPAP of 10 cm. He has been very compliant and using it regularly every night with .good results In fact he is not able to sleep well without the CPAP. Compliance report shows excellent compliance. He denies any issue with the machine. Code(s): G47.33 - Obstructive sleep apnea (adult) (pediatric) Category: Medical Plan: Explained explained to him that the machine function seems to be perfect. As long as he has no problem with the CPAP machine he can continue to use the same device. No need. To change to a new one at this time. . Will be glad to see him for follow-up once a year. (2) Obesity: Comment: He remains moderately obese. Weight has been fluctuating just by a few lbs. Code(s): E66.9 - Obesity, unspecified Category: Medical Plan: Discussed about the weight. He is physically very active. Watch diet and it will be good to lose about 5 lb of weight. Coding Level of Care Code Est Pt Level 3 (33705) Diagnoses Obstructive sleep apnea G47.33 Obesity E66.9
== END 2023-11-11 15:42 | disposition home or self-care (01) ==
PROVIDERS: PCP Internal Medicine; Visit Provider Internal Medicine
DX: G47.33 Obstructive sleep apnea (adult) (pediatric) (principal); E66.9 Obesity, unspecified
CPT/HCPCS: 99213

== ENCOUNTER → 2023-11-11 15:21 | Outpatient (BNVA) | payer MEDICARE, SELFPAY | PROVIDERS: PCP Internal Medicine; Visit Provider Internal Medicine | DX: G47.33 Obstructive sleep apnea (adult) (pediatric) (principal); E66.9 Obesity, unspecified; Z68.31 Body mass index [BMI] 31.0-31.9, adult | CPT/HCPCS: 99212 ==

== ENCOUNTER → 2024-01-16 08:02 | Outpatient (REF) | payer MEDICARE, SELFPAY ==
--- NOTE | 2024-01-16 08:05 | CA_ITS ---
Transthoracic Echocardiogram Patient (Last, First, Middle): Cory Rodriguez, Gender: Male Date of : 1955 Age: 68 Procedure Date: 01/16/2024 Procedure Type: Transthoracic Echocardiogram Location: OP Height: 175.26 cm Weight: 95.26 kg BSA: 2.11 m2 Heart Rate: 67 bpm BP: 118 / 65 mmHg Credit Risk Management Director: ZACH Referring MD: Cameron Rain MD Informatics Manager: Cameron Rain MD Symptoms: I11.9 - Hypertensive heart disease without heart failure Study Quality: Fair ECG Rhythm: Sinus Conclusions: - 1. Normal LV ejection fraction of 65-70% with moderate LVH with impaired relaxation filling pattern 2. Normal cardiac valvular Doppler 3. Normal RV systolic pressure 4. No gross pericardial effusion Findings Left Ventricle Normal left ventricular size and systolic function. There is moderately increased left ventricular wall thickness. The visually estimated ejection fraction is between 65-70%. Spectral Doppler is indicative of an impaired relaxation filling pattern. E/E prime ratio is between 8 and 15 consistent with indeterminate filling pressures. Peak GLS is -21.8%, within normal limits. Wall Motion Rest Echo Findings The basal inferior segment is hypokinetic. All other scored wall segments showed normal motion. Right Ventricle Normal right ventricular cavity size and systolic function. Atria The left atrium is mildly dilated. There is no evidence of interatrial shunt. The right atrium is normal in size. Aortic Valve Normal aortic valve structure and function. There is no aortic valve stenosis. There is no aortic valve regurgitation. Mitral Valve Normal mitral valve structure and function. There is trace mitral valve regurgitation. There is no mitral valve stenosis. Pulmonic Valve The pulmonic valve is likely normal. Tricuspid Valve Normal tricuspid valve structure. There is trace tricuspid valve regurgitation. The right ventricular systolic pressure is normal. The right ventricular systolic pressure is 11 mmHg. Normal right atrial pressure. There is no evidence of pulmonary hypertension. Great Vessels All visible segments of the aorta are normal in size. The pulmonary artery was not well visualized. There is no dilatation of the ascending aorta measuring 3.30 cm. Venous The inferior vena cava is normal in size and collapses greater than 50% with inspiration. Pericardium/Pleural There is no evidence of pericardial effusion. Prior Study Comparison No significant change compared to prior study dated: 10/12/2022. Measurements 2D Linear Measurements IVSd: 1.74 0.6-0.9/0.6-1.0 cm LVIDd: 4.33 3.9-5.3/4.2-5.9 cm LVIDd Index: 2.05 2.4-3.2/2.2-3.1 cm/m2 LVIDs: 2.38 2.0-3.6 cm LVPWd: 1.50 0.7-1.1 cm LA Diam: 3.70 2.7-3.8/3.0-4.0 cm LAIDs Index: 1.75 1.5-2.3 cm/m2 LV Mass: 366.72 67-162/88-224 g LV Mass Index: 173.80 43-95/49-115 g/m2 LVOT Diam: 2.20 3.0+(-)1.3 cm 2D Systolic Function EF 4C: 68.30 >55% EF 2C: 66.50 >55% EF BiP: 67.00 >55% Mitral Valve MV Pk E: 0.69 MV PK A: 1.02 MV Decel Time: 311.00 E/A: 0.70 E'Lateral: 5.33 E'Medial: 5.00 E/E' Med: 13.80 E/E' Lat: 12.90 PHT: 91.00 MVA PHT: 2.42 Decel [place]: 2.21 Aortic Valve AoV Pk Joe: 1.59 AoV Mn Joe: 1.19 AoV VTI: 0.39 AoV Pk Grad: 10.00 Aov Mn Grad: 6.00 KRYSTYNA Cont.VTI: 2.84 LVOT LVOT Pk Joe: 1.23 LVOT Mn Joe: 0.93 LVOT VTI: 0.29 LVOT Pk Grad: 6.00 LVOT Mn Grad: 4.00 LVOT Diam: 2.20 LVOT Area: 3.80 Diastolic Function MV Pk E: 0.69 MV Pk A: 1.02 E/A: 0.70 E'Medial: 5.00 E/E' Med: 13.80 E' Laterial: 5.33 E/E' Lat: 12.90 Right Ventricle TAPSE (mm): 29.00 TVS' Joe: 16.30 Tricuspid Valve TR Pk Joe: 1.44 TR Pk Grad: 8.00 RA Press: 3.00 RVSP: 11.00 Great Vessels Aorta Sinus of Valsalva: 3.80 2.0-3.5 cm Ao Asc: 3.30 2.1-3.4 cm Pulmonary Valve PV Pk Joe: 1.14 Peak PV Grad: 5.00 Updated in Other Vendor System with Status of Final Cameron Rain MD electronically signed on 01/17/2024 2:40:04 PM with status of Final
== END ==
LOC: HO.CARD 08:02
PROVIDERS: PCP Internal Medicine; Visit Provider Internal Medicine Cardiovascular Disease
DX: I11.9 Hypertensive heart disease without heart failure (principal)
CPT/HCPCS: 93306; 93356

== ENCOUNTER → 2024-01-16 08:05 | Outpatient (BNV) | payer MEDICARE, SELFPAY | PROVIDERS: PCP Internal Medicine; Visit Provider Internal Medicine Cardiovascular Disease | DX: I11.9 Hypertensive heart disease without heart failure (principal); R93.1 Abnormal findings on diagnostic imaging of heart and coronary circulation | CPT/HCPCS: 93306; 93356 ==

== ENCOUNTER 2024-01-30 14:48 | Outpatient (AMB) | payer MEDICARE, SELFPAY ==
[2024-01-30 14:51] VITALS: BP 118/68; PULSE 66; BMI 31.6
--- NOTE | 2024-01-30 14:51 | MHC.OFFVIS ---
Vital Signs 01/30/24 14:51 Height 5 ft 9 in Weight 213 lb 13.574 oz BMI 31.6 BP 118/68 Blood Pressure Location Lt brachial Position Sitting Pulse 66 Intake Visit Reasons: 6 mth f/u Intake Note: 6 month follow-up with ekg feeling good Apprentice/Lineman Required: No Allergies No Known Allergies [No Known Allergies*] Allergy (Verified 11/11/23 15:43) Medication List - Last Reconciled 01/30/24 by Cameron Rain MD amlodipine 10 mg PO DAILY apixaban (Eliquis) 5 mg PO BID ascorbate calcium (vitamin C) 500 mg PO DAILY atorvastatin 80 mg PO BEDTIME chlorthalidone 25 mg PO DAILY empagliflozin (Jardiance) 25 mg PO QAM ferrous sulfate 325 mg PO DAILY finasteride 5 mg PO DAILY losartan 100 mg PO DAILY metformin 1,000 mg PO BID metoprolol succinate ER 200 mg PO QAM multivitamin,[id number] (Complete Multivitamin tablet) 1 tab PO DAILY tamsulosin 0.4 mg PO DAILY HPI Comments Details: Sukh comes for follow-up. He said he has been doing well. He has not had any recurrent episodes of atrial fibrillation. Taking all his medications. Most recent echocardiogram shows normal LV ejection fraction with moderate LVH with mild left atrial enlargement. He has been taking all his medications regularly. Blood pressures been well optimized. Uses CPAP regularly. He said he has no symptoms of heart failure. Denies any exertional chest pain. He said he can do his routine activity without restriction but does not routinely exercise on a regular basis. [facility] Medical History Afib HTN (hypertension) Uncontrolled hypertension Hypertensive heart disease Obstructive sleep apnea Hyperlipidemia Diabetes mellitus Obesity Surgical History Hx of hemorrhoidectomy H/O colonoscopy Hx of knee surgery Hx of transurethral resection of prostate History of nasal surgery Family History Father CVD (cardiovascular disease) Mother Cancer Social History Patient Tobacco Use Status: Never used Tobacco Review of Systems Const Denies chills, Denies fatigue, Denies fever(s), Denies frequent falls, Denies weakness, Denies weight gain and Denies weight loss ENT Denies dizziness Card Denies chest pain, Denies leg edema, Denies lightheadedness, Denies palpitations, Denies dyspnea, Denies dyspnea on exertion, Denies orthopnea and Denies other (loss of consciousness) Resp Denies cough, Denies dyspnea and Denies dyspnea on exertion GI Denies hematochezia and Denies change in stool character Musc Denies abnormal gait, Denies muscle weakness, Denies numbness, Denies radiating pain into limb and Denies tingling Neuro Denies abnormal gait, Denies dizziness, Denies frequent falls, Denies numbness, Denies tingling and Denies weakness Endo Denies fatigue and Denies palpitations Physical Exam Vital Signs: Last Vital Signs Pulse 66 01/30/24 14:51 BP 118/68 01/30/24 14:51 BMI result Body Mass Index 31.6 Const General: healthy appearing, comfortable and no acute distress Orientation/consciousness: patient oriented x3 Neck Neck: Yes normal visual inspection and Yes no JVD Resp Effort & Inspection: normal respiratory effort Auscultation: clear to auscultation bilaterally, no crackles, no rales, no rhonchi and no wheezes Cardio Jugular venous distension: no JVD Rate: regular rate Rhythm: regular rhythm Heart sounds: S1 normal heart sound present, S2 normal heart sound present, no gallops, no murmurs and no rubs Neuro General: patient oriented x3 Extrem General: Yes normal to inspection Psych Appearance: grossly normal Mental Status: mental status grossly normal Speech and movement: Normal speech and movement present Office Procedures EKG Details: EKG shows normal sinus rhythm with right bundle-branch block at 66 beats per minute [id number], Complete Assessment & Plan Assessment & Plan (1) Paroxysmal atrial fibrillation: Code(s): I48.0 - Paroxysmal atrial fibrillation Category: Medical Plan: Paroxysmal atrial fibrillation without any recurrent symptoms at this point time. He does have underlying structural heart disease that makes him prone to get atrial fibrillation future. This was discussed with him. However he is currently having no symptoms will continue with current therapy with metoprolol as prescribed. No indication for antiarrhythmic drug therapy at this point time. Continue full oral anticoagulation, currently on Eliquis 5 mg b.i.d.. Semi annual renal function test should be pursued. CHADSVASc score of 3. (2) Hypertensive heart disease: Code(s): I11.9 - Hypertensive heart disease without heart failure Category: Medical Plan: Hypertensive heart disease without overt heart failure syndrome. Continue aggressive blood pressure control which is currently well optimized. Importance of good blood pressure control was discussed. Signs and symptoms of heart failure were discussed. Avoidance of salt loading was discussed. Continue CPAP therapy. Continue all medications. Advised to monitor blood pressure at home maintain a log. Advised to increase activity level. Will follow up in the clinic in 1 year's time, sooner p.r.n.. Thank you for allowing me to partake in his care Coding Level of Care Code Est Pt Level 4 (61228) Diagnoses Paroxysmal atrial fibrillation I48.0 Hypertensive heart disease I11.9 CPT Codes EKG - CPT: 47910-[id number], Complete ([id number])
== END 2024-01-30 15:09 | disposition home or self-care (01) ==
PROVIDERS: PCP Internal Medicine; Visit Provider Internal Medicine Cardiovascular Disease
DX: I48.0 Paroxysmal atrial fibrillation (principal); I11.9 Hypertensive heart disease without heart failure
CPT/HCPCS: 93010; 99214

== ENCOUNTER → 2024-01-30 14:48 | Outpatient (BNVA) | payer MEDICARE, SELFPAY | PROVIDERS: PCP Internal Medicine; Visit Provider Internal Medicine Cardiovascular Disease | DX: I45.10 Unspecified right bundle-branch block (principal); I48.0 Paroxysmal atrial fibrillation; I10 Essential (primary) hypertension; I11.9 Hypertensive heart disease without heart failure | CPT/HCPCS: 93005; 99212 ==

== ENCOUNTER 2024-11-12 09:37 | Outpatient (AMB) | payer MEDICARE, SELFPAY ==
[2024-11-12 09:47] VITALS: BP 110/62; PULSE 68; O2SAT 98; BMI 32.6
--- NOTE | 2024-11-12 09:47 | MHC.OFFVIS ---
Vital Signs 11/12/24 09:47 Height 5 ft 9 in Weight 220 lb 7.396 oz BMI 32.6 BP 110/62 Blood Pressure Location Lt brachial Position Sitting Pulse 68 Pulse Source Pulse Oximeter Pulse Oximetry (%) 98 Oxygen Delivery Method Room Air Intake Visit Reasons: faustino Intake Note: pt is here for follow up and received his new cpap and is doing well Ob Tech Required: No Allergies No Known Allergies [No Known Allergies*] Allergy (Verified 11/12/24 10:20) Medication List - Last Reconciled 11/12/24 by Daniel Amaya MD amlodipine 10 mg PO DAILY apixaban (Eliquis) 5 mg PO BID ascorbate calcium (vitamin C) 500 mg PO DAILY atorvastatin 80 mg PO BEDTIME chlorthalidone 25 mg PO DAILY empagliflozin (Jardiance) 25 mg PO QAM ferrous sulfate 325 mg PO DAILY finasteride 5 mg PO DAILY losartan 100 mg PO DAILY metformin 1,000 mg PO BID metoprolol succinate ER 200 mg PO QAM multivitamin,[id number] (Complete Multivitamin tablet) 1 tab PO DAILY tamsulosin 0.4 mg PO DAILY Do you need a note to return to daycare/school/sports/work: No HPI HPI faustino: Details: 69 YEARS OLD GENTLEMAN WHO IS MODERATELY OBESE AND HAS DIAGNOSIS OF OBSTRUCTIVE SLEEP APNEA, IS HERE FOR HIS ROUTINE FOLLOW-UP. HE USES CPAP VERY RELIGIOUSLY EVERY NIGHT, SLEEPING UP TO 8-1/2 HOURS PER NIGHT. RECENTLY HE HAS GOTTEN NASAL- AIR , FOR THE INTERFACE AND HE IS VERY HAPPY ABOUT THIS. CLAIMS THAT THIS IS MUCH MORE COMFORTABLE THAN THE MASK. HE HAS NO ISSUES WITH THE CPAP DEVICE. TRIES TO MAINTAIN HIS WEIGHT AND BUT HAS PUT ON A FEW LB SINCE LAST VISIT. [facility] Medical History Afib HTN (hypertension) Uncontrolled hypertension Hypertensive heart disease Obstructive sleep apnea Hyperlipidemia Diabetes mellitus Obesity Surgical History Hx of hemorrhoidectomy H/O colonoscopy Hx of knee surgery Hx of transurethral resection of prostate History of nasal surgery Family History Father CVD (cardiovascular disease) Mother Cancer Social History Patient Tobacco Use Status: Never used Tobacco Review of Systems Const All systems reviewed & are unremarkable except as noted in HPI and below Eyes Reports no additional complaints ENT Denies dizziness and Denies nasal congestion Card Denies chest pain, Denies leg edema, Denies lightheadedness, Denies dyspnea, Denies dyspnea on exertion and Denies orthopnea Resp Denies cough, Denies dyspnea and Denies dyspnea on exertion GI Reports no additional complaints Reports no additional complaints Musc Reports no additional complaints Neuro Denies dizziness Psych Reports no additional complaints Endo Reports no additional complaints Reese/Lymph Reports no additional complaints Aller/Immun Reports no additional complaints Physical Exam Vital Signs: Last Vital Signs Pulse 68 11/12/24 09:47 BP 110/62 11/12/24 09:47 Pulse Ox 98 11/12/24 09:47 Oxygen Delivery Method Room Air 11/12/24 09:47 BMI result Body Mass Index 32.6 Const General: healthy appearing, comfortable, no acute distress, alert and awake Orientation/consciousness: patient oriented x3 HEENT Head: Yes normal to inspection General nose exam: No nasal polyps present and No nasal discharge present Face and sinus: Yes sinuses nontender Mouth: oropharynx normal Throat: Yes posterior oropharynx normal Eyes General: appearance normal, both eyes and all related structures Neck Neck: Yes normal visual inspection, Yes no lymphadenopathy, Yes trachea midline and Yes no JVD Thyroid: Thyroid normal Chest Chest palpation & inspection: normal inspection of the chest, normal palpation of entire chest wall and no tenderness Resp Effort & Inspection: normal respiratory effort Auscultation: clear to auscultation bilaterally, no crackles, no rales and no wheezes Cardio Palpation: normal PMI Rate: regular rate Rhythm: regular rhythm Heart sounds: no gallops and no murmurs Peripheral pulses: Peripheral pulses 2+ throughout GI Palpation (GI): Soft to palpation, nontender, No hepatosplenomegaly present and no masses Auscultation: normal bowel sounds Back/Spine/Pelvis Thoracic/Lumbar Spine: thoracic and lumbar spine normal to inspection Skin General skin exam: no rashes or lesions noted Neuro General: patient oriented x3 and no focal motor deficits Cranial nerves: Yes CN's II-XII intact bilaterally Extrem General: Yes normal to inspection, Yes no clubbing, cyanosis or edema and Yes no calf tenderness Psych Appearance: grossly normal and well kempt Speech and movement: Normal speech and movement present Results Reviewed Results Reviewed: COMPLIANCE FOR THE LAST 30 NIGHTS REVIEWED. HAS USED. 100% OF THE NIGHTS AVERAGE USE IT PER NIGHT 8 HOURS 17 MINUTES. THERE IS ONLY MILD AIR LEAK. RESIDUAL AHI 4.9. THIS MAY BE DUE TO THE AIR LEAK. Assessment & Plan Assessment & Plan (1) Obesity: Comment: He remains moderately obese. Weight has been fluctuating just by a few lbs. Code(s): E66.9 - Obesity, unspecified Category: Medical Plan: TALKED ABOUT HIS WEIGHT AND ADVISE THAT HE SHOULD TRY TO LOSE 5-10 LB OF THE WEIGHT. (2) Obstructive sleep apnea: Comment: This gentleman is known case of obstructive sleep apnea since 2014. He has been treated with CPAP of 10 cm. Since his last visit he is on auto PAP mode with pressure setting of 6-16 cm. Currently using nasal air as the interface with which he is much more comfortable. Compliance report is excellent except for the fact that he does have a few residual obstructive events with AHI 4.9. This may be related to some air leak issue. He has been very compliant and using it regularly every night with .good results In fact he is not able to sleep well without the CPAP. Code(s): G47.33 - Obstructive sleep apnea (adult) (pediatric) Category: Medical Plan: Commended for very good compliance. Cautioned about air leak and advised to keep the straps tightened. Follow-up once a year is fine unless he needs to talk to me or come in for discussion during the. Coding Level of Care Code Est Pt Level 3 (82592) Diagnoses Obesity E66.9 Obstructive sleep apnea G47.33
--- OUTSIDE RECORDS SUMMARY | 2024-11-12 10:21 | XMS_ITS | Clinical Summary ---
Author Organization [facility] ity Address [address] [place] [address] Care Team Providers Care Amortization Schedule Clerk Name Role Phone Unavailable Primary Care Provider Unavailabl e Social History Tobacco Use Types Packs/Day Years Used Date Smoking Tobacco: Never Assessed Sex and Gender Information Value Date Recorded Sex Assigned at Not on file Legal Sex Male 5:11 AM EST Gender Identity Not on file Sexual Orientation Not on file Plan of Treatment Health Maintenance Due Date Last Done Comments DTaP,Tdap,and Td Vaccines (1 - Tdap) 1972 Pneumococcal Vaccine: 50+ Ye ars (1 of 1 - PCV) 11/12/2003 Zoster Vaccines (1 of 2) 11/12/2003 COVID-19 Vaccine ( - 2023-2 5 season) 2024 Influenza Vaccine (Season Ended) 2025 RSV Immunization Adult Patie nts (1 - 1-dose 75+ series) 2028 HIB Vaccines Aged Out No longer eligi ble based on patient's age to complete this topic HPV Vaccines Aged Out No longer eligi ble based on patient's age to complete this topic Hepatitis A Vaccines Aged Out No long er eligible based on patient's age to complete this topic Hepatitis B Vaccines Aged Out No long er eligible based on patient's age to complete this topic IPV Vaccines Aged Out No longer eligi ble based on patient's age to complete this topic MMR Vaccines Aged Out No longer eligi ble based on patient's age to complete this topic Meningococcal ACWY Vaccine Aged Out N o longer eligible based on patient's age to complete this topic Meningococcal B Vaccine Aged Out No l onger eligible based on patient's age to complete this topic RSV Immunization Patients Un anastasiia 20 months Aged Out No longer eligible b ased on patient's age to complete this topic Varicella Vaccines Aged Out No longer eligible based on patient's age to complete this topic
--- OUTSIDE RECORDS SUMMARY | 2024-11-12 10:21 | XMS_ITS | Encounter Summary ---
Author Organization [email or web address] Address [address] [place] [address] Care Team Providers Care Embedded Systems Designer Name Role Phone Daron Guardado MD Primary Care Prov ider Encounter Details Date Type Department Care Team ([facility] st Contact Info) Description 07/30/2024 Orders Only [facility] [address] [place], [place] [id number] Daron Guardado MD [address] [place] [address] Social History Tobacco Use Types Packs/Day Years Used Date Smoking Tobacco: Never Passive Smoke Exposure: Never Smokeless Tobacco: Never Alcohol Use Standard Drinks/Week Comments Never 0 (1 standard drink = 0.6 oz pur e alcohol) Depression Answer Date Recorded Patient Health Questionnaire-9 Score 0 10/26/2022 Housing Stability Answer Date Recorded What is your housing situation today? I have john tillman 04/22/[address] you li ve. Do you have problems with any of the following? None of the above 04/22/2023 Food Insecurity Answer Date Recorded Within the past 12 months, y ou worried that your food would run out before you got money to buy more: Never True 04/22/2023 Within the past 12 months,th e food you bought just didn't last and you didn't have enough money to get more: Never True Transportation Answer Date Recorded In the past 12 months, has l ack of transportation kept you from medical appts, meetings, work or from getting things needed for daily living? No 04/22/2023 Utilities Answer Date Recorded In the past 12 months, has t he electric, gas, oil or water company threatened to shut off services in your home? No 04/22/2023 Depression Answer Date Recorded Patient Health Questionnaire-2 Score 0 10/26/2022 Sex and Gender Information Value Date Recorded Sex Assigned at Male 05/07/2022 10:28 AM EDT Legal Sex Male 10:28 AM EDT Gender Identity Male 05/07/2022 10:28 AM EDT Sexual Orientation Straight 05/07/2022 10 :28 AM EDT documented as of this encounter Plan of Treatment Upcoming Encounters Date Type Department Care Team (Late st Contact Info) Description 12/16/2024 8:30 AM EDT Office Visit [facility] [address] [place] [address] Daron Guardado MD [address] [place] [address] 04/12/2025 8:00 AM EDT Office Visit [facility] [address] [place] [address] Dylan Buitrago documented as of this encounter Visit Diagnoses Not on filedocumented in this encounter Additional Health Concerns Assessment Noted Time PHQ-9 Depression Total Score: 0 10/27/19 23 8:56 AM EDT documented as of this encounter Care Teams Embedded Systems Designer Relationship Specialty Start Date End Date Daron Guardado MD [address] [place] [address] PCP - General Internal Medicine 04/26/20 documented as of this encounter
--- OUTSIDE RECORDS SUMMARY | 2024-11-12 10:21 | XMS_ITS ---
Author Organization [facility] Address [address] [place] [address] Care Team Providers Care Adaptive Physical Education Specialist Name Role Phone Luan lao, Daron Primary Care Prov ider Unavailable Mathew Eduardo Unavailable [phone] Allergies No Known Allergies REASON FOR VISIT colon screening Medications Medication SIG (Take, Route, Frequency, Duration) Notes Start Date End Date Status Finasteride 5 MG TAKE ONE TABLET BY M OUTH EVERY DAY Oral for 90 Active metFORMIN HCl 1000 MG TAKE ONE TABLET TW ICE DAILY WITH BREAKFAST AND SUPPER Orally twice a day Active Metoprolol Succinate ER 200 MG TAKE ONE TABLET BY MOUTH EVERY DAY Oral for 30 Active amLODIPine Besylate 10 MG TAKE ONE TABLE T BY MOUTH EVERY DAY Oral for 30 Active Losartan Potassium 100 MG 1 tablet Orall y Once a day for 30 day(s) Active Atorvastatin Calcium 80 MG 1 tablet Oral ly Once a day for 30 day(s) Active Eliquis 5 MG TAKE ONE TABLET BY M OUTH TWICE DAILY Oral for 90 Active Jardiance 25 MG TAKE ONE TABLET BY M OUTH EVERY MORNING Oral for 90 Active Chlorthalidone 25 MG Oral for 90 Active Senior Multivitamin Plus Active Iron 325 (65 Fe) MG 1 tablet Orally Once a day Active Tamsulosin HCl 0.4 MG 1 capsule Orally O nce a day Active Vitamin C Active Fish Oil 1200 MG Orally Twice a day Active Social History Tobacco Use: Social History Observation Description Date Details (start date - stop date) Never Smoker NA - NA Tobacco Use/Smoking Question Answer Notes Patient is a nonsmoker Alcohol Screen Question Answer Notes Did you have a drink containing alcohol in the p ast year? No Points 0 Interpretation Negative Section Notes: Nonsmoker; no sig alcohol Problems Problem Type SNOMED Code ICD Code Onset Dates Problem Status W/U Status Risk Notes Problem 346451726 Current use of l shelton term anticoagulation (Z79.01) Active confirmed Vital Signs Temperature 98.4 degrees Fahrenheit 05/28/20 23 Blood pressure systolic 00 mm Hg 05/28/20 23 Blood pressure diastolic 00 mm Hg 023 Height 69.5 in 05/28/2023 Weight 215 lbs 05/28/2023 BMI 31.29 kg/m2 05/28/2023 Encounters Encounter Location Date Provider Diagnosis [facility] [address] [place] [address] 05/28/2023 Mathew Eduardo Hx of adenomatous colonic polyps Z86.010 ; Current use of senior care anticoagulation Z79.01 ; Encounter for screening for malignant neoplasm of colon Z12.11 and Preprocedural examination Z01.818 Assessments Encounter Date Diagnosis (ICD Code) Assessment Notes Treatment Notes Treatment Clinical Notes Section Notes 05/28/2023 Hx of adenomatous colonic polyps (ICD-10 - Z86.010) Overall, Cory appears quite well. Given his previous history of tubular adenomas and his last colonoscopy being 5 years ago, I did recommend a followup colonoscopy for screening purposes. We did review the rationale for that in regard to colon cancer prevention. Full consent was obtained for this, including risks of bleeding and perforation. The procedure will be done with monitored anesthesia care. He was given the below instructions regarding adjustment of his medications for the procedure. Cory was comfortable with this plan. Thank you again for allowing me to participate in Cory's care. I shall continue to keep you advised of his progress. 05/28/2023 Current use of exterminator anticoagulation (ICD-10 - Z79.01) Overall, Cory appears quite well. Given his previous history of tubular adenomas and his last colonoscopy being 5 years ago, I did recommend a followup colonoscopy for screening purposes. We did review the rationale for that in regard to colon cancer prevention. Full consent was obtained for this, including risks of bleeding and perforation. The procedure will be done with monitored anesthesia care. He was given the below instructions regarding adjustment of his medications for the procedure. Cory was comfortable with this plan. Thank you again for allowing me to participate in Cory's care. I shall continue to keep you advised of his progress. 05/28/2023 Encounter for screening for malignant neoplasm of colon (ICD-10 - Z12.11) Do not use the Eliquis for 72 hours before the colonoscopy and check with Dr. Rain about that. Do not use the Iron and Fish oil for 1 week before the colonoscopy. Do not take the Metformin or Jardiance the night before or on the morning of the colonoscopy. Do not use the Chlorthalidone the day before nor on the day of the procedure. Overall, Cory appears quite well. Given his previous history of tubular adenomas and his last colonoscopy being 5 years ago, I did recommend a followup colonoscopy for screening purposes. We did review the rationale for that in regard to colon cancer prevention. Full consent was obtained for this, including risks of bleeding and perforation. The procedure will be done with monitored anesthesia care. He was given the below instructions regarding adjustment of his medications for the procedure. Cory was comfortable with this plan. Thank you again for allowing me to participate in Cory's care. I shall continue to keep you advised of his progress. 05/28/2023 Preprocedural examination (ICD-10 - Z01.818) Overall, Cory appears quite well. Given his previous history of tubular adenomas and his last colonoscopy being 5 years ago, I did recommend a followup colonoscopy for screening purposes. We did review the rationale for that in regard to colon cancer prevention. Full consent was obtained for this, including risks of bleeding and perforation. The procedure will be done with monitored anesthesia care. He was given the below instructions regarding adjustment of his medications for the procedure. Cory was comfortable with this plan. Thank you again for allowing me to participate in Cory's care. I shall continue to keep you advised of his progress. Plan Of Treatment Treatment Notes Assessment Notes Encounter for screening for malignant neoplasm of colon Do not use the Eliquis for 72 hours before the colonoscopy and check with Dr. Rain about that. Do not use the Iron and Fish oil for 1 week before the colonoscopy. Do not take the Metformin or Jardiance the night before or on the morning of the colonoscopy. Do not use the Chlorthalidone the day before nor on the day of the procedure. Future Test Test Name Order Date COLONOSCOPY 05/28/2023 Next Appt Details Follow Up: prn, Reason: Progress Notes * YOBANI QUIGLEY:1955 ( 67 yo M)Acc No.[id number]:05/28/2023 Progress Notes Patient:?CORY QUIGLEY Provider:?Mathew Eduardo MD :1955???Age:67 Y???Sex:Male Zain e:05/28/2023 Address:[address] [place] [address] Pcp:Daron cuellar md Subjective: * Chief Complaints: * ???Colon screening * HPI: ???incontinence:? I saw Cory in the office today for evaluation of his personal history of tubular adenomas of the colon and need for colorectal cancer screening. ?I last saw Cory in May of 2018, at which time he underwent a followup screening colonoscopy with removal of a small tubular adenoma. He currently feels well. He enjoys a good appetite, without any significant heartburn or dysphagia. His bowel movements have been regular, without any hematochezia nor melena. He denies abdominal pain, jaundice, nor weight loss. He denies any known family history of colon cancer. * ROS:?General/Constitutional:?Change in appetite?denies.?Chills?denies.?Fatigue?denies.?Ophthalmologic:?Comments?all negative.?ENT:?Comments?all negative.?Respiratory:?hemoptysis?denies.?Cough?denies.?Cardiovascular:?Chest pain?denies.?Orthopnea?denies.?Gastrointestinal:?Comments?See HPI for details.?Genitourinary:?Hematuria?denies.?Dysuria?denies.?Musculoskeletal:?Painful joints?denies.?Weakness?denies.?Skin:?Itching?denies.?Rash?denies.?Neurologic:?Headache?denies.?Seizures?denies.?Psychiatric:?Comments?all negative.? * Medical History:? * Surgical History:?Hemorrhoid ectomy Knee surgery left and right Nasopharyngealplasty for sleep apnea TURP 07/2019 * Hospitalization/Major Diagno stic Procedure:?No Hospitalization History. * Family History:?Father: dece ased, diagnosed with Diabetes, Heart disease, HTN (hypertension).?Mother: alive, breast cancer.?Maternal Grand Mother: , diagnosed with Colon polyps.? No colorectal cancer. * Social History:?Tobacco Use:?Tobacco Use/Smoking?Patient is a?nonsmoker.?Drugs/Alcohol:?Alcohol Screen?Did you have a drink containing alcohol in the past year??No,?Points?0,?Interpretation?Negative.?Miscellaneous:?Marital status: . 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 ???Nonsmoker; no sig alcohol. * Medications:?TakingAtorvasta tin Calcium 80 MG Tablet 1 tablet Orally Once a dayLosartan Potassium 100 MG Tablet 1 tablet Orally Once a dayamLODIPine Besylate 10 MG Tablet TAKE ONE TABLET BY MOUTH EVERY DAY Oral Metoprolol Succinate ER 200 MG Tablet Extended Release 24 Hour TAKE ONE TABLET BY MOUTH EVERY DAY Oral metFORMIN HCl 1000 MG Tablet TAKE ONE TABLET TWICE DAILY WITH BREAKFAST AND SUPPER Orally twice a dayFinasteride 5 MG Tablet TAKE ONE TABLET BY MOUTH EVERY DAY Oral Tamsulosin HCl 0.4 MG Capsule 1 capsule Orally Once a dayIron 325 (65 Fe) MG Tablet 1 tablet Orally Once a dayFish Oil 1200 MG Capsule Orally Twice a dayVitamin C Senior Multivitamin Plus Chlorthalidone 25 MG Tablet Oral Jardiance 25 MG Tablet TAKE ONE TABLET BY MOUTH EVERY MORNING Oral Eliquis 5 MG Tablet TAKE ONE TABLET BY MOUTH TWICE DAILY Oral Taking Atorvastatin Calcium 80 MG Tablet 1 tablet Orally Once a dayTaking Losartan Potassium 100 MG Tablet 1 tablet Orally Once a dayTaking amLODIPine Besylate 10 MG Tablet TAKE ONE TABLET BY MOUTH EVERY DAY Oral Taking Metoprolol Succinate ER 200 MG Tablet Extended Release 24 Hour TAKE ONE TABLET BY MOUTH EVERY DAY Oral Taking metFORMIN HCl 1000 MG Tablet TAKE ONE TABLET TWICE DAILY WITH BREAKFAST AND SUPPER Orally twice a dayTaking Finasteride 5 MG Tablet TAKE ONE TABLET BY MOUTH EVERY DAY Oral Taking Tamsulosin HCl 0.4 MG Capsule 1 capsule Orally Once a dayTaking Iron 325 (65 Fe) MG Tablet 1 tablet Orally Once a dayTaking Fish Oil 1200 MG Capsule Orally Twice a dayTaking Vitamin C Taking Senior Multivitamin Plus Taking Chlorthalidone 25 MG Tablet Oral Taking Jardiance 25 MG Tablet TAKE ONE TABLET BY MOUTH EVERY MORNING Oral Taking Eliquis 5 MG Tablet TAKE ONE TABLET BY MOUTH TWICE DAILY Oral DiscontinuedAspirin Adult Low Dose 81 MG Tablet Delayed Release 1 tablet Orally Once a dayMedication List reviewed and reconciled with the patientDiscontinued Aspirin Adult Low Dose 81 MG Tablet Delayed Release 1 tablet Orally Once a dayMedication List reviewed and reconciled with the patient * Allergies:?N.K.D.A.yes[Aller gies Verified] Objective: * Vitals:?Wt: 215 lbs, Ht: 69. 5 in, BMI:31.29 Index, BP: 00/00 mm Hg, Temp: 98.4. * Examination: ???General Examination: ?GENERAL APPEARANCE:?pleasant, well nourished, well developed, in no acute distress.?EYES:?sclera non-icteric.?ORAL CAVITY:?mucosa moist.?NECK/THYROID:?no cervical lymphadenopathy, neck supple.?SKIN:?nonjaundiced, no spider angiomata.?HEART:?S1, S2 normal.?LUNGS:?clear to auscultation bilaterally.?ABDOMEN:?normal bowel sounds, no guarding or rigidity, no guarding or rigidity, no masses palpable, soft, nontender, nondistended.?EXTREMITIES:?no edema.?NEUROLOGIC:?alert and oriented.? Assessment: * Assessment: 1.?Current use of senior care anticoagulation - Z79.01 (Primary)?2.?Hx of adenomatous colonic polyps - Z86.010?3.?Encounter for screening for malignant neoplasm of colon - Z12.11?4.?Preprocedural examination - Z01.818? Overall, Cory appears quit e well. Given his previous history of tubular adenomas and his last colonoscopy being 5 years ago, I did recommend a followup colonoscopy for screening purposes. We did review the rationale for that in regard to colon cancer prevention. Full consent was obtained for this, including risks of bleeding and perforation. The procedure will be done with monitored anesthesia care. He was given the below instructions regarding adjustment of his medications for the procedure. Cory was comfortable with this plan. Thank you again for allowing me to participate in Cory's care. I shall continue to keep you advised of his progress. Plan: * Treatment: 2.?Encounter for screening for malignant neoplasm of colon?Procedure: COLONOSCOPY (Ordered for 05/28/2023)* with MACsched for 08/23/23 at 10:20 ammiralax Notes: Do not use the Eliquis for 72 hours before the colonoscopy and check with Dr. Rain about that. Do not use the Iron and Fish oil for 1 week before the colonoscopy. Do not take the Metformin or Jardiance the night before or on the morning of the colonoscopy. Do not use the Chlorthalidone the day before nor on the day of the procedure.?? * Procedure Codes:?3017F COLOR ECTAL CA SCREEN DOC [id number] TOBACCO [id number] BP SCR NOT PRFRM REC REASON NOS * Preventive Medicine:? ??Counseling:?Care goal follow-up plan:?Above Normal BMI Follow-up?Giving encouragement to exercise,?BMI management provided?Yes.? * Follow Up:?prn * * Sign off status: Completed true * Provider:?Mathew Eduardo MD Date:? 023 Generated for Paul duneas/Bharath/eTfarzaenhsmitting on:?11/12/2024 10:21 AM EDT History and Physical Notes * HPI (History of Present Illness) Category Sub-Category Detail Notes Category Not es incontinence I saw Cory in the office today for evaluation of his personal history of tubular adenomas of the colon and need for colorectal cancer screening. I last saw Cory in May of 2018, at which time he underwent a followup screening colonoscopy with removal of a small tubular adenoma. He currently feels well. He enjoys a good appetite, without any significant heartburn or dysphagia. His bowel movements have been regular, without any hematochezia nor melena. He denies abdominal pain, jaundice, nor weight loss. He denies any known family history of colon cancer. Examination Category Sub-Category Detail Notes Category Not es General Examination GENERAL APPEARANCE: pleasant , well nourished, well developed, in no acute distress HEAD: EYES: sclera non-icteric EARS: NOSE: THROAT: NECK/THYROID: no cervical lymphade nopathy, neck supple HEART: S1, S2 normal CHEST: LUNGS: clear to auscultatio n bilaterally ABDOMEN: normal bowel sounds, no guarding or rigidity, no guarding or rigidity, no masses palpable, soft, nontender, nondistended NEUROLOGIC: alert and oriented SKIN: nonjaundiced, no spi anastasiia angiomata EXTREMITIES: no edema PERIPHERAL PULSES: BACK: BREASTS: MUSCULOSKELETAL: MALE GENITOURINARY: LYMPH NODES: RECTAL EXAM: FEMALE GENITOURINARY: ORAL CAVITY: mucosa moist
--- OUTSIDE RECORDS SUMMARY | 2024-11-12 10:21 | XMS_ITS | Encounter Summary ---
Author Organization [employer] Address [address] [place] [address] Care Team Providers Care Boiler Installer Name Role Phone Daron Guardado MD Primary Care Prov ider Reason for Visit * Reason Comments Med Refill Encounter Details Date Type Department Care Team ([facility] Contact Info) Description 04/11/2024 Refill [facility] CHC MED & PEDS [address] [place] [address] Daron Guardado MD [address] [place] [address] Social History Tobacco Use Types Packs/Day Years [...] Description 12/16/2024 8:30 AM EDT Office Visit [facility] PED[facility] [address] [place] [address] Daron Guardado MD [address] [place] [address] 04/12/2025 8:00 AM EDT Office Visit [facility] ADULT DENTAL [address] [place] [address] Dylan Buitrago documented as of this encounter Visit Diagnoses Not on filedocumented in this encounter Additional Health Concerns Assessment Noted Time PHQ-9 Depression Total Score: 0 10/27/19 23 8:56 AM EDT documented as of this encounter Care Teams Boiler Installer Relationship Specialty Start Date End Date Daron Guardado MD [address] [place] [address] PCP - General Internal Medicine 04/26/20 documented as of this encounter
--- OUTSIDE RECORDS SUMMARY | 2024-11-12 10:21 | XMS_ITS | Patient Health Record ---
Author Organization [facility] Address [address] [place] [address] Care Team Providers Care Dimension Warehouse Supervisor Name Role Phone Luan lao, Daron Primary Care Prov ider Unavailable Mathew Eduardo Unavailable [phone] Allergies No Known Allergies Reason For Referral No Information Medications Medication SIG (Take, Route, Frequency, Duration) Notes Start Date End Date Status Metoprolol Succinate ER 200 MG TAKE ONE TABLET BY MOUTH EVERY DAY Oral for 30 Active Eliquis 5 MG TAKE ONE TABLET BY M OUTH TWICE DAILY Oral for 90 Active amLODIPine Besylate 10 MG TAKE ONE TABLE T BY MOUTH EVERY DAY Oral for 30 Active Jardiance 25 MG TAKE ONE TABLET BY M OUTH EVERY MORNING Oral for 90 Active Losartan Potassium 100 MG 1 tablet Orall y Once a day for 30 day(s) Active Chlorthalidone 25 MG Oral for 90 Active Senior Multivitamin Plus Active Iron 325 (65 Fe) MG 1 tablet Orally Once a day Active Tamsulosin HCl 0.4 MG 1 capsule Orally O nce a day Active Finasteride 5 MG TAKE ONE TABLET BY M OUTH EVERY DAY Oral for 90 Active metFORMIN HCl 1000 MG TAKE ONE TABLET TW ICE DAILY WITH BREAKFAST AND SUPPER Orally twice a day Active Atorvastatin Calcium 80 MG 1 tablet Oral ly Once a day for 30 day(s) Active Vitamin C Active Fish Oil 1200 [...] Negative Section Notes: Nonsmoker; no sig alcohol Nonsmoker; no sig alcohol Problems Problem Type SNOMED Code ICD Code Onset Dates Problem Status W/U Status Risk Notes Problem [id number] Encounter for screening for malignant neoplasm of colon (Z12.11) Active confirmed Problem Personal history of colonic polyps (Z86.010) Active confirmed Problem Diverticular disease of colon (162067718) Diverticulosis of large intestine without perforation or abscess without bleeding (K57.30) Active confirmed Problem 397344903337932 Preprocedural examination (Z01.818) Active confirmed Problem 629555375 History of colon polyps (Z86.010) Active confirmed Problem 225937517 Hx of adenomatou s colonic polyps (Z86.010) Active confirmed Problem 785984320 Current use of ear nose and throat specialist anticoagulation (Z79.01) Active confirmed Problem 170125964 Hx of adenomatou s polyp of colon (Z86.010) Active confirmed Plan Of Treatment Future Test Test Name Order Date COLONOSCOPY 03/21/2018 COLONOSCOPY 05/28/2023 Insurance Providers Payer Name Payer Address Payer Phone Subscriber Number Group Number Insured Name Patient Relationship to Insured Coverage Start Date Coverage End Date MEDICARE OF [place] [address] [place] [address] [id number] CAROLINE QUIGLEY Self - patient is the insured [employer] ATT[employer] CLAIMS [address] [place] [address] [id number] CAROLINE QUIGLEY Self - patient is the insured Medical (General) History Medical History History ICD Code NIDDM Hypertension Denies NC,CVA,Lung disease,renal disease Prostatitis/BPH 2 or 3 previous colonoscopie s at [facility]--most recent one was > 5 years ago--he reports that at least one of them had polyps removed Chronic anemia with normal M CV, normal iron studies, and normal B12 and folate levels Sleep apnea--he uses a CPAP Afib- 11/2022- Dr. Rain Colonoscopy in May with removal of a tubular adenoma and a hyperplastic polyp Surgical History Surgery Date(Month/Year) Hemorrhoidectomy Knee surgery left and right Nasopharyngealplasty for sleep apnea TURP 07/2019
--- OUTSIDE RECORDS SUMMARY | 2024-11-12 10:21 | XMS_ITS | Encounter Summary ---
Author Organization [email or web address] Address [address] [facility] [address] [place] [address] Care Team Providers Care Brown Stock Washer Name Role Phone Daron Guardado MD Primary Care Prov ider Reason for Visit * Reason Comments Med Refill Encounter Details Date Type Department Care Team ([facility] Contact Info) Description 06/18/2024 Refill [facility] CHC MED & PEDS [address] [place] [address] Daron Guardado MD [address] [place] [address] Social History Tobacco Use Types Packs/Day Years [...] Description 12/16/2024 8:30 AM EDT Office Visit [facility] MED & PEDS [address] [place] [address] Daron Guardado MD [address] [place] [address] 04/12/2025 8:00 AM EDT Office Visit [facility] ADULT DENTAL [address] [place] [address] Dylan Buitrago documented as of this encounter Visit Diagnoses Not on filedocumented in this encounter Additional Health Concerns Assessment Noted Time PHQ-9 Depression Total Score: 0 10/27/19 23 8:56 AM EDT documented as of this encounter Care Teams Brown Stock Washer Relationship Specialty Start Date End Date Daron Guardado MD [address] [place] [address] PCP - General Internal Medicine 04/26/20 documented as of this encounter
--- OUTSIDE RECORDS SUMMARY | 2024-11-12 10:21 | XMS_ITS | Encounter Summary ---
Author Organization [employer] Address [address] [facility] [address] [place] [address] Care Team Providers Care Clip Coater Name Role Phone Daron Guardado MD Primary Care Prov ider Encounter Details Date Type Department Care Team (Latest Contact Info) Description 11/28/2018 Abstract [facility] CONVERSIONS Dental, Provider, DDS Social History Tobacco Use Types Packs/Day Years [...] Upcoming Encounters Date Type Department Care Team ( st Contact Info) Description 12/16/2024 8:30 AM EDT Office Visit [facility] MED & PEDS [address] [place] [address] Daron Guardado MD [address] [place] [address] 04/12/2025 8:00 AM EDT Office Visit [facility] ADULT DENTAL [address] [place] [address] Dylan Buitrago documented as of this encounter Visit Diagnoses Not on filedocumented in this encounter Care Teams Clip Coater Relationship Specialty Start Date End Date Daron Guardado MD [address] [place] [address] PCP - General Internal Medicine 04/26/20 documented as of this encounter
--- OUTSIDE RECORDS SUMMARY | 2024-11-12 10:21 | XMS_ITS | Encounter Summary ---
Author Organization [employer] Address [address] [place] [address] [address] [place] [address] Care Team Providers Care Critical Care Specialist Name Role Phone Daron Guardado MD Primary Care Prov ider Encounter Details Date Type Department Care Team (Late Contact Info) Description 02/28/2023 Orders Only [facility] MED & PEDS [address] [place] [address] Daron Guardado MD [address] [place] [address] Social History Tobacco Use Types Packs/Day Years Used Date Smoking Tobacco: Never Passive Smoke Exposure: Never Smokeless Tobacco: Never Alcohol Use Standard Drinks/Week Comments Never 0 (1 standard drink = 0.6 oz pur e alcohol) Depression Answer Date Recorded Patient Health Questionnaire-9 Score 0 10/26/2022 Depression Answer Date Recorded Patient Health Questionnaire-2 Score 0 10/26/2022 Sex and Gender Information Value Date Recorded Sex Assigned at Male 05/07/2022 10:28 AM EDT Legal Sex Male 10:28 AM EDT Gender Identity Male 05/07/2022 10:28 AM EDT Sexual Orientation Straight 05/07/2022 10 :28 AM EDT documented as of this encounter Plan of Treatment Upcoming Encounters Date Type Department Care Team (Late Contact Info) Description 12/16/2024 8:30 AM EDT Office Visit [facility] CHC MED & PEDS [address] [place], [place] [id number] Daron Guardado MD [address] [place], [place] [id number] 04/12/2025 8:00 AM EDT Office Visit [facility] CHC ADULT DENTAL [address] [place] [address] Dylan Buitrago documented as of this encounter Visit Diagnoses Not on filedocumented in this encounter Additional Health Concerns Assessment Noted Time PHQ-9 Depression Total Score: 0 10/27/19 23 8:56 AM EDT documented as of this encounter Care Teams Critical Care Specialist Relationship Specialty Start Date End Date Daron Guardado MD [address] [place] [address] PCP - General Internal Medicine 04/26/20 documented as of this encounter
--- OUTSIDE RECORDS SUMMARY | 2024-11-12 10:21 | XMS_ITS | Encounter Summary ---
Author Organization [email or web address] Address [address] [facility] 7 [place] [address] Care Team Providers Care Dredge Pipeman Name Role Phone Daron Guardado MD Primary Care Prov ider Reason for Visit * Reason Onset Date Comments Med Refill 06/19/2024 Encounter Details Date Type Department Care Team ([facility] st Contact Info) Description 06/19/2024 Refill [facility] MED & PEDS [address] [place] [address] Daron Guardado MD [address] [place] [address] Social History Tobacco Use Types Packs/Day Years [...] 8:30 AM EDT Office Visit [facility] MED & PEDS [address] [place] [address] Daron Guardado MD [address] [place] [address] 04/12/2025 8:00 AM EDT Office Visit [facility] ADULT DENTAL [address] [place] [address] Dylan Buitrago documented as of this encounter Visit Diagnoses Not on filedocumented in this encounter Additional Health Concerns Assessment Noted Time PHQ-9 Depression Total Score: 0 10/27/19 23 8:56 AM EDT documented as of this encounter Care Teams Dredge Pipeman Relationship Specialty Start Date End Date Daron Guardado MD [address] [place] [address] PCP - General Internal Medicine 04/26/20 documented as of this encounter
--- OUTSIDE RECORDS SUMMARY | 2024-11-12 10:21 | XMS_ITS | Clinical Summary ---
Author Organization [employer] Address [address] [facility] 7t [place] [address] Care Team Providers Care Independent Freight Agent Name Role Phone Daron Guardado MD Primary Care Prov ider Allergies No known active allergies Medications Multiple Vitamin (Multi-Vitamin) tablet take 1 tablet by oral route every day with food Active amLODIPine (Norvasc) 10 MG tablet Take 10 mg by mouth in the morning. Active ascorbic acid (Vitamin C) 500 MG tablet Take 500 mg by mouth in the morning. Active Jardiance 25 MGIndications:Typ e 2 diabetes mellitus with stage 3a chronic kidney disease, without long-term current use of insulin ([facility]) TAKE ONE TABLET BY MOUTH EVERY MORNING 90 tablet 3 4 Active tamsulosin (Flomax) 0.4 MG 24 hr capsule TAKE 1 CAPSULE BY MOUTH EVERY DAY IN THE MORNING 90 capsule 2 4 Active atorvastatin (Lipitor) 80 MG tablet TAKE 1 TABLET BY MOUTH EVERY DAY 90 tablet 3 4 Active metFORMIN (Glucophage) 1000 MG tablet TAKE 1 TABLET BY MOUTH WITH BREAKFAST AND EVENING MEALS 180 tablet 1 4 Active Eliquis 5 MG tablet TAKE ONE TABLET TWICE DAILY 180 tablet 1 4 Active finasteride (Proscar) 5 MG tablet TAKE 1 TABLET BY MOUTH EVERY MORNING. SWALLOW WHOLE. 90 tablet 5 Active fluticasone (Flonase) 50 MCG/ACT nasal spray Administer 1-2 sprays into each nostril Once per day. Shake gently. Before first use, prime pump. After use, clean tip and replace cap. 16 g 2 5 09/17/19 26 Active clotrimazole (Lotrimin) 1 % cream Apply topically every 12 (twelve) hours. 30 g 3 5 Active chlorthalidone (Hygroton) 25 MG tabletIndications :Primary hypertension TAKE 1 TABLET BY MOUTH EVERY DAY IN THE MORNING 90 tablet 1 5 Active metoprolol succinate XL (Toprol-XL) 100 MG 24 hr tablet TAKE 2 TABLETS (200 MG) BY MOUTH IN THE MORNING 180 tablet 3 5 10/08/19 26 Active losartan (Cozaar) 100 MG tablet TAKE 1 TABLET BY MOUTH EVERY DAY IN THE MORNING 90 tablet 1 5 Active Active Problems Problem Noted Date Diagnosed Date Hypertensive heart disease 01/15/2024 Obesity 01/15/2024 Afib 01/15/2024 Assessment & Plan (08/17/2024 9:38 AM EST): On eliquis and metoprolol, followed by cardiology, no palpitation/chest pain in over 5 months, no changes will be made Assessment & Plan (01/15/2024 9:19 AM EDT): Followed by cardiology, on eliquis and metoprolol, no chnages Paroxysmal atrial fibrillation 01/15/2024 Acute nontraumatic kidney injury 11/21/2021 Chronic kidney disease, stage 2 (mild) Assessment & Plan (03/20/2023 9:31 AM EDT): Followd by nephrology on arb and sglt2 Type 2 diabetes mellitus wit h diabetic chronic kidney disease 10/27/2020 Assessment & Plan (01/15/2024 9:21 AM EDT): Controlled, he can do a little better in respect of his diet, continue metformin and jardiance. Foot exam unremarkable Eye exam done on April 2023 Sunil hematuria 12/09/2017 Type 2 diabetes mellitus wit h stage 3a chronic kidney disease, without long-term current use of insulin 03/29/2015 Assessment & Plan (08/17/2024 9:47 AM EST): Followed by nephrology, had eye exam done, A1c came a little bit up, he was instructed to decrease carbs/no sugars, increase physical activity, follow up in 3 months Foot exam remarkable for tinea, will send clotrimazole Assessment & Plan (10/14/2023 9:47 AM EDT): Controlled, A1c today was 6.9%, on metformin and jardiance, continue low carb diet and exercise as tolerated, follow up in 3 months Assessment & Plan (03/20/2023 9:31 AM EDT): Controlled, a1c 6.6%, continue current therapy and lifestyle modifications, follow up in 3 months Assessment & Plan (10/26/2022 1:26 PM EDT): Not at target today a1c was 7.4%, he has not been following diet recommendations, he is on metformin and Jardiance want to try diet/lifestyle changes before considering new medication Obstructive sleep apnea syndrome 03/29/2015 Left ventricular hypertrophy 09/01/2007 Overview (01/15/2024): Left ventricular hypertrophy; Severe ? Nonobstructive hypertrophic cardiomyopathy Left ventricular hypertrophy; Severe ? Nonobstructive hypertrophic cardiomyopathy Hyperlipidemia 08/01/2007 Overview (10/26/2022): Hyperlipidemia; dX ~ 2000 Hyperlipidemia; dX ~ 2000 Assessment & Plan (10/14/2023 9:48 AM EDT): On atorvastatin, new labs will be ordered for guidance Assessment & Plan (10/26/2022 1:32 PM EDT): Will place labs order for guidance of therapy Hypertension 08/01/2007 Overview (10/26/2022): Hypertension; DX~ 2000 Assessment & Plan (08/17/2024 9:48 AM EST): Controlled, keep low sodium diet, keep bp log, follow up in 3-4 months Assessment & Plan (01/15/2024 9:20 AM EDT): Controlled, on losartan, amlodipine and chlorthalidone, no changes will be made, keep low sodium diet and exercise as tolerated Assessment & Plan (10/14/2023 9:47 AM EDT): Controlled, on amlodipine, chlorthalidone and losartan, continue low sodium diet and exercise as tolerated, bp target <130/80 Assessment & Plan (03/20/2023 9:30 AM EDT): Controlled, reinforced lifestyle changes, no medication changes will be done today, will leave blood work to be done in 1 month Assessment & Plan (10/26/2022 1:22 PM EDT): Controlled, continue losartan/chlorthalidone and metoprolol, Reinforced low sodium diet and exercise, following cardiology and nephrology Prostatitis 08/01/2007 Overview (01/15/2024): Prostatitis Prostatitis Resolved Problems Problem Noted Date Diagnosed Date Resolved Date Obstructive sleep apnea 01/15/2024 04/0 08/2024 Encounters Date Type Department Care Team Description 10/07/2024 8:00 AM EDT Office Visit [facility] ADULT DENTAL [address] [place] [address] Angela Traore 10/07/2024 Refill [facility] MED & PEDS [address] [place] [address] Daron Guardado MD 10/04/2024 Refill [facility] MED & PEDS [address] [place] [address] Daron Guardado MD Primary hypertension 09/18/2024 Population Health Risk Score [facility] () [address] [address] Provider, Population Health Generic 09/16/2024 Refill [facility] CHC MED & PEDS [address] [place] [address] Daron Guardado MD 09/11/2024 Refill [facility] CHC MED & PEDS [address] [place] [address] Daron Guardado MD 08/17/2024 8:30 AM EST Office Visit [facility] MED & PEDS [address] [place] [address] Daron Guardado MD Primary hypertension (Primary Dx); Type 2 diabetes mellitus without complication, without long-term current use of insulin (CMS/HCC); Atrial fibrillation, unspecified type (CMS/HCC); Type 2 diabetes mellitus with stage 2 chronic kidney disease, without long-term current use of insulin (CMS/HCC) (CMS/HCC); Type 2 diabetes mellitus with stage 3a chronic kidney disease, without long-term current use of insulin (CMS/HCC); Dietary counseling; Exercise counseling 08/17/2024 Travel 08/16/2024 Travel from Last 3 Months Immunizations Name Administration Dates Next Due Influenza High-dose Quadriva lent Preservative Free 03/20/2023,03/28/2021,04/01/2020 Influenza Quadrivalent Adjuvanted 03/28/2022 Influenza injectable quadriv alent IIV4 with preservative 04/04/2018,05/27/2017,04/05/2016,2014 Influenza, High Dose Seasona l, Preservative Free 03/27/2019 Influenza, IIV3, injectable 04/04/2024 Pneumococcal Conjugate PCV 13 11/14/2018 Pneumococcal Conjugate PCV 20 10/14/2023 RSV Adjuvant 05/27/2023 Tdap 02/15/2017 Zoster, Recombinant 11/14/2023,08/02/2023 Zoster, live 08/15/2015 Social History Tobacco Use Types Packs/Day Years Used Date Smoking Tobacco: Never Passive Smoke Exposure: Never Smokeless Tobacco: Never Tobacco Cessation:Counseling Given: Not Answered Alcohol Use Standard Drinks/Week Comments Never 0 (1 standard drink = 0.6 oz pur e alcohol) Depression Answer Date Recorded Patient Health Questionnaire-9 Score 0 08/17/2024 Patient Health Questionnaire-9 Score 0 08/17/2024 Last PHQ-9: Questionnaire Data Not on file 0 08/17/2024 Housing Stability Answer Date Recorded What is your housing situation today? I have john tillman 08/17/[address] you li ve. Do you have problems with any of the following? None of the above 08/17/2024 Food Insecurity Answer Date Recorded Within the past 12 months, y ou worried that your food would run out before you got money to buy more: Never True 08/17/2024 Within the past 12 months,th e food you bought just didn't last and you didn't have enough money to get more: Never True 04/2025 Transportation Answer Date Recorded In the past 12 months, has l ack of transportation kept you from medical appts, meetings, work or from getting things needed for daily living? No 08/17/2024 Utilities Answer Date Recorded In the past 12 months, has t he electric, gas, oil or water company threatened to shut off services in your home? No 08/17/2024 Depression Answer Date Recorded Patient Health Questionnaire-2 Score 0 08/17/2024 Internet Access Answer Date Recorded Internet Access Q1 Yes 08/17/2024 Internet Access Q2 Not on file 08/17/2024 Sex and Gender Information Value Date Recorded Sex Assigned at Male 05/07/2022 10:28 AM EDT Legal Sex Male 10:28 AM EDT Gender Identity Male 05/07/2022 10:28 AM EDT Sexual Orientation Straight 05/07/2022 10 :28 AM EDT Last Filed Vital Signs Vital Sign Reading Time Taken Comments Blood Pressure 132/86 10/07/2024 8:07 AM EDT Pulse 60 08/17/2024 8:47 AM EST Temperature 37.1 ??C (98.7 ??F) 08/17/2024 8:47 AM ES T Respiratory Rate 16 08/17/2024 8:47 AM EST Oxygen Saturation 96% 01/15/2024 8:39 AM EDT Inhaled Oxygen Concentration - - Weight 98.4 kg (217 lb) 08/17/2024 8:47 AM EST Height 172.7 cm (5' 8 ) 08/17/2024 8:47 AM EST Body Mass Index 32.99 08/17/2024 8:47 AM EST Plan of Treatment Upcoming Encounters Date Type Department Care Team (Late st Contact Info) Description 12/16/2024 8:30 AM EDT Office Visit [facility] MED & PEDS [address] [place] [address] Daron Guardado MD [address] [place] [address] 04/12/2025 8:00 AM EDT Office Visit [facility] ADULT DENTAL [address] [place] [address] Dylan Buitrago Health Maintenance Due Date Last Done Comments CT Colonography 1953 FIT DNA/Cologuard 1953 FIT 1953 FOBT 1955 Sigmoidoscopy 1955 Eye Exam 11/12/1963 Lipid Panel 10/13/2024 10/14/2023, 04/07, 10/26/2022, Additional history exists Diabetes: Hemoglobin A1C 11/14/2024 025, 10/14/2023, 04/23/2023, Additional history exists Dental X-Ray: Bitewings 03/04/2025 03/03/2024, 02/04 Dental Oral Exam 04/09/2025 10/07/2024, , 02/04/2023 Dental Prophylaxis 04/09/2025 10/07/2024, 0 03/03/2024, 09/02/2023, Additional history exists Alcohol/Substance Use Screening 08/17/2025 08/17/2024 Depression Screening 08/17/2025 08/17/2024, 08/17/19 25 Diabetes: Foot Exam 08/17/2025 08/17/2024, 08/17/2024, 08/17/2024, Additional history exists SDOH Screening 08/17/2025 08/17/2024 Tobacco Screening 10/07/2025 10/07/2024 DTaP/Tdap/Td Vaccines (2 - Td or Tdap) 02/15/2027 02/15/2017 Dental X-Ray: Full Mouth 03/04/2027 03/03/2024 Colonoscopy 08/23/2028 08/23/2023 Colorectal Cancer Screening 08/23/2028 Hepatitis C Screening Completed 10/26/2022, 022 RSV Patients and Patients Aged 60 years or older Completed 05/27/2023 Pneumococcal Vaccine: 50+ Years Completed 10/14/2023, 11/14/2018 Zoster Vaccines Completed 11/14/2023, 07/09, 08/15/2015 Influenza Vaccine Completed 04/04/2024, , 03/20/2023, Additional history exists COVID-19 Vaccine Completed 04/19/2024, 05/2023, 05/11/2022, Additional history exists HIB Vaccines Aged Out No longer eligi [...] patient's age to complete this topic Meningococcal Vaccine Aged Out No kristin tho eligible based on patient's age to complete this topic RSV under 20 months Aged Out No longe r eligible based on patient's age to complete this topic Rotavirus Vaccines Aged Out No longer eligible based on patient's age to complete this topic Procedures Procedure Name Priority Date/Time Associated Diagnosis Comments PERIODIC ORAL EVALUATION - ESTABLISHED PATIENT Routine 10/07/2024 8:00 AM EDT ORAL HYGIENE INSTRUCTIONS Routine 10/07/2024 8:00 AM EDT PROPHYLAXIS - ADULT Routine 10/07/2024 8 :00 AM EDT POCT GLYCATED HEMOGLOBIN, TOTAL Routine 08/17/2024 8:59 AM EST Type 2 diabetes mellitus without complication, without long-term current use of insulin ([facility]) POCT GLUCOSE Routine 08/17/2024 8:58 AM EST Type 2 diabetes mellitus without complication, without long-term current use of insulin (CMS/HCC) INTRAORAL - COMPLETE SERIES OF RADIOGRAPHIC IMAGES Routine 03/03/2024 8:00 AM EDT LIPID PANEL, STANDARD Routine 10/14/2023 9:21 AM EDT Type 2 diabetes mellitus without complication, without long-term current use of insulin (CMS/HCC) HM COLONOSCOPY Routine 08/23/2023 8:54 AM EST HEPATITIS C AB W/REFL TO HCV RNA, QN, PCR Routine 10/26/2022 9:11 AM EDT Diabetes mellitus due to underlying condition with diabetic nephropathy, without long-term current use of insulin (CMS/HCC) from Last 3 Months or Most Recently Relevant to Health Maintenance Results * (ABNORMAL) POCT HGB A1C (08/17/2024 8:59 AM EST) Hemoglobin A1C 7.1(A) 4.0 - 6.0 % QC Media Lot # [id number] Lot# Expiration Date Blood 08/17/2024 8:59 AM EST Daron Crespo MD POINT OF CARE TEST ENTER/EDIT ORDERABLES Final Result * POCT Glucose (08/17/2024 8:58 AM EST) Glucose Blood, POC 158 60 - 200 mg/dL QC Media Lot # [id number] Lot# Expiration Date Blood Capillary blood specimen / Unknown 08/17/2024 8:58 AM EST Daron Crespo MD POINT OF CARE TEST ENTER/EDIT ORDERABLES Final Result * Lipid Panel, Standard (10/14/2023 9:21 AM EDT) Triglycerides 118 <150 mg/dL [facility] Comment:Desirable Triglyceri de: less than 150 mg/dLBorderline High Triglyceride 150-199 mg/dLHigh Triglyceride: 200-499 mg/dLVery High Triglyceride: greater than or equal to 5OO mg/dL Cholesterol 150 <200 mg/dL [facility] Comment:Desirable Cholestero l: less than 200 mg/dLBorderline High Cholesterol: 200-239 mg/dLHigh Cholesterol: greater than 239 mg/dL LDL Cholesterol Calculated 85 <100 mg/dL [facility] Comment:Desirable LDL: less than 100 mg/dLNear Optimal/Above Optimal LDL: 110- 129 mg/dLBorderline High LDL: 130-159 mg/dLHigh LDL: 160-189 mg/dLVery High LDL: greater than or equal to 190 mg/dL HDL Cholesterol 42 >40 mg/dL [facility] Comment:Desirable HDL: great er than 40 mg/dL Note: This HDL assay may give artificially low results in patients with liver disease. Blood Venous blood specimen / Unknown 10/14/2023 9:21 AM EDT 10/14/2023 2:36 PM EDT Daron Crespo MD LAB BLOOD ORDERABL ES Final Result [facility] [address] [place] [phone] * Colonoscopy (08/23/2023 8:54 AM EST) Historical Provider HEALTH MAINTENANCE Final Result * Hepatitis C Antibody with Reflex to HCV, RNA, Quantitative, Real-Time PCR (10/26/2022 9:11 AM EDT) Hepatitis C Antibody NON-REACT ALEJANDRA NON-REACT ALEJANDRA [email or web address] Index 0.07 <1.00 [email or web address] Comment: HCV antibody was non-reactive. There is no laboratory evidence of HCV infection. In most cases, no further action is required. However, if recent HCV exposure is suspected, a test for HCV RNA (test code 14449) is suggested. For additional information please refer to http://education.[employer]/faq/OBH44v9 (This link is being provided for informational/ educational purposes only.) Blood Venous blood specimen / Unknown 10/26/2022 9:11 AM EDT 10/26/2022 9:12 AM EDT Narrative [facility] - 10/27/2022 6:06 PM EDT FASTING:YES AN UPDATE OR CORRECTION HAS BEEN MADE TO NAME FASTING: YES Daron Crespo MD LAB BLOOD ORDERABL ES Final Result [facility] [address], [place] [address] [employer] [facility] [address] [place] [address] from Last 3 Months or Most Recently Relevant to Health Maintenance Insurance MEDICARE [facility] MEDEX CARE [facility] Care Teams Independent Freight Agent Relationship Specialty Start Date End Date Daron Guardado MD [address] [place] [id number] PCP - General Internal Medicine 04/26/20
--- OUTSIDE RECORDS SUMMARY | 2024-11-12 10:21 | XMS_ITS | Encounter Summary ---
Author Organization [employer] Address [address] [facility] 7t [place] [address] Care Team Providers Care Atomic Physics Professor Name Role Phone Daron Guardado MD Primary Care Prov ider Encounter Details Date Type Department Care Team (Late Contact Info) Description 11/24/2022 Orders Only [facility] MED & PEDS [address] [place] [address] Daron Guardado MD [address] [place] [address] Social History Tobacco Use Types Packs/Day Years Used Date Smoking Tobacco: Never Smokeless Tobacco: Never Depression Answer Date Recorded Patient Health Questionnaire-9 Score 0 10/26/2022 Depression Answer Date Recorded Patient Health Questionnaire-2 Score 0 10/26/2022 Sex and Gender Information Value Date Recorded Sex Assigned at Male 05/07/2022 10:28 AM EDT Legal Sex Male 10:28 AM EDT Gender Identity Male 05/07/2022 10:28 AM EDT Sexual Orientation Straight 05/07/2022 10 :28 AM EDT COVID-19 Exposure Response Date Recorded In the last 10 days, have yo u been in contact with someone who was confirmed or suspected to have Coronavirus/COVID-19? No / Unsure 11/21/2022 9:54 AM EDT documented as of this encounter Plan of Treatment Upcoming Encounters Date Type Department Care Team ([facility] Contact Info) Description 12/16/2024 8:30 AM EDT Office Visit [facility] MED & PEDS [address] [place] [address] Daron Guardado MD [address] [place] [address] 04/12/2025 8:00 AM EDT Office Visit [facility] ADULT DENTAL [address] [place] [address] Dylan Buitrago documented as of this encounter Visit Diagnoses Not on filedocumented in this encounter Additional Health Concerns Assessment Noted Time PHQ-9 Depression Total Score: 0 10/27/19 23 8:56 AM EDT documented as of this encounter Care Teams Atomic Physics Professor Relationship Specialty Start Date End Date Daron Guardado MD [address] [place] [address] PCP - General Internal Medicine 04/26/20 documented as of this encounter
--- OUTSIDE RECORDS SUMMARY | 2024-11-12 10:21 | XMS_ITS | Encounter Summary ---
Author Organization [employer] Address [address] [place] [address] Care Team Providers Care Java Swing Developer Name Role Phone Daron Guardado MD Primary Care Prov ider Encounter Details Date Type Department Care Team (Late st Contact Info) Description 10/24/2023 Orders Only [facility] MEDICINE [address] [place] [address] ProviderChang MD Social History Tobacco Use Types Packs/Day Years Used Date Smoking Tobacco: Never Passive Smoke Exposure: Never Smokeless Tobacco: Never Alcohol Use Standard Drinks/Week Comments Never 0 (1 standard drink = 0.6 oz pur e alcohol) Depression Answer Date Recorded Patient Health Questionnaire-9 Score 0 10/26/2022 Housing Stability Answer Date Recorded What is your housing situation today? I have johnwaqar tillman 04/22/[address] you [...] Description 12/16/2024 8:30 AM EDT Office Visit [facility] MED & PEDS [address] [place] [address] Daron Guardado MD [address] [place] [address] 04/12/2025 8:00 AM EDT Office Visit [facility] ADULT DENTAL [address] [place] [address] Dylan Buitrago documented as of this encounter Procedures Procedure Name Priority Date/Time Associated Diagnosis Comments HM COLONOSCOPY Routine 08/23/2023 8:54 AM EST documented in this encounter Results * Hm Colonoscopy (08/23/2023 8:54 AM EST) Historical Provider HEALTH MAINTENANCE Final Result documented in this encounter Visit Diagnoses Not on filedocumented in this encounter Additional Health Concerns Assessment Noted Time PHQ-9 Depression Total Score: 0 10/27/19 23 8:56 AM EDT documented as of this encounter Care Teams Java Swing Developer Relationship Specialty Start Date End Date Daron Guardado MD [address] [place] [address] PCP - General Internal Medicine 04/26/20 documented as of this encounter
--- OUTSIDE RECORDS SUMMARY | 2024-11-12 10:21 | XMS_ITS | Encounter Summary ---
Author Organization [employer] Address [address] [facility] [address] [place] [address] Care Team Providers Care Auto Hiker Name Role Phone Daron Guardado MD Primary Care Prov ider Encounter Details Date Type Department Care Team (Latest Contact Info) Description 04/28/2020 Abstract [facility] CONVERSIONS Dental, Provider, DDS Social History [...] [facility] & PED[facility] [address] [place] [address] Daron Guardado MD [address] [place] [address] 04/12/2025 8:00 AM EDT Office Visit [facility] ADULT DENTAL [address] [place] [address] Dylan Buitrago documented as of this encounter Visit Diagnoses Not on filedocumented in this encounter Care Teams Auto Hiker Relationship Specialty Start Date End Date Daron Guardado MD [address] [place] [address] PCP - General Internal Medicine 04/26/20 documented as of this encounter
--- OUTSIDE RECORDS SUMMARY | 2024-11-12 10:21 | XMS_ITS | Clinical Summary ---
Author Organization [facility] Address [address] [address] Phone Care Team Providers Care Transport Specialist Name Role Phone Daron Padilla Primary Care Provider [phone] Allergies No known active allergies Medications tamsulosin (FLOMAX) 0.4 MG 24 hr capsule TAKE 1 CAPSULE BY ORAL ROUTE EVERY DAY 1/2 HOUR FOLLOWING THE SAME MEAL EACH DAY 1 Active metoprolol succinate XL (TOPROL-XL) 200 MG 24 hr tablet Take 200 mg by mouth 1 (one) time each day 1 Active metFORMIN (GLUCOPHAGE) 1000 MG tablet TAKE 1 TABLET BY MOUTH TWICE A DAY WITH MORNING AND EVENING MEALS 1 Active losartan (COZAAR) 100 MG tablet Take 100 mg by mouth 1 (one) time each day 1 Active finasteride (PROSCAR) 5 MG tablet Take 5 mg by mouth 1 (one) time each day 1 Active ferrous sulfate 325 (65 Fe) MG tablet Take 1 tablet by mouth 2 (two) times a day Active chlorthalidone (HYGROTON) 25 MG tablet Take 25 mg by mouth 1 (one) time each day 1 Active atorvastatin (LIPITOR) 40 MG tablet Take 40 mg by mouth 1 (one) time each day 1 Active ascorbic acid (VITAMIN C) 500 MG tablet Take 500 mg by mouth daily Active amLODIPine (NORVASC) 10 MG tablet TAKE 1 TABLET EVERY DAY BY MOUTH 1 Active omega-3 (FISH OIL) 1000 MG capsule Active Multiple Vitamin (MULTIVITAMIN PO) 1 (one) time each day Active Empagliflozin (Jardiance) 25 MG tablet Take by mouth Active Eliquis 5 MG tablet Take 5 mg by mouth in the morning and 5 mg in the evening. Active Active Problems Problem Noted Date Diagnosed Date Stage 3a chronic kidney disease 04/21/2024 Hypokalemia 04/21/2024 Acute nontraumatic kidney injury 11/21/2021 Diabetes mellitus 11/21/2021 Chronic kidney disease, stage 2 (mild) Hypertension 10/27/2020 Type 2 diabetes mellitus wit h diabetic chronic kidney disease 10/27/2020 Left ventricular hypertrophy 09/01/2007 Overview (11/21/2021): Left ventricular hypertrophy; Severe ? Nonobstructive hypertrophic cardiomyopathy Hyperlipidemia 08/01/2007 Overview (11/21/2021): Hyperlipidemia; dX ~ 2000 Prostatitis 08/01/2007 Overview (11/21/2021): Prostatitis Family History Medical History Relation Comments Heart disease Father Hypertension Father Relation Status Comments Father Mother Alive Social History Tobacco Use Types Packs/Day Years Used Date Smoking Tobacco: Never Smokeless Tobacco: Never Tobacco Cessation:Counseling Given: Not Answered Alcohol Use Standard Drinks/Week Comments No 0 (1 standard drink = 0.6 oz pur e alcohol) Sex and Gender Information Value Date Recorded Sex Assigned at Not on file Legal Sex Male 4:48 PM EST Gender Identity Not on file Sexual Orientation Not on file Last Filed Vital Signs Vital Sign Reading Time Taken Comments Blood Pressure 115/60 04/21/2024 3:58 PM EDT Pulse 67 04/21/2024 3:58 PM EDT Temperature - - Respiratory Rate - - Oxygen Saturation 95% 04/10/2023 3:51 PM EDT Inhaled Oxygen Concentration - - Weight 98.4 kg (217 lb) 04/21/2024 3:58 PM EDT Height 175.3 cm (5' 9 ) 11/21/2021 4:36 PM EDT Body Mass Index 32.05 11/21/2021 4:36 PM EDT Plan of Treatment Upcoming Encounters Date Type Department Care Team (Late st Contact Info) Description 04/20/2025 8:00 AM EDT Office Visit [facility] [address] [facility] [address] [place] [address] Gayla Simon ARNP [address] [facility] [address] [place] [address] Health Maintenance Due Date Last Done Comments Colorectal Cancer Screening: Annual FOBT 2002 Colorectal Cancer Screening: Colonoscopy 2002 Colorectal Cancer Screening: Sigmoidoscopy 2002 Diabetes: Ophthalmology Exam 08/08/2020 Diabetes: Pedal Pulse Checked 08/08/2020 Diabetes: Sensory Foot Exam 08/08/2020 Diabetes: Visual Foot Exam 08/08/2020 Diabetes: Hemoglobin A1C 01/13/2024 024, 11/21/2021, 03/30/2020, Additional history exists Influenza Vaccine (Season Ended) 2025 03/28/2022, 03/27/2019, 04/04/2018, Additional history exists Pneumococcal Vaccine: 50+ Years Completed 10/14/2023, 11/14/2018 Pneumococcal Vaccine: Peds (0 to 5 Years) and At-Risk Patients (6 to 49 Years) Discontinued 10/14/2023, 11/14/2018 Hepatitis B Vaccine Aged Out No longe r eligible based on patient's age to complete this topic Procedures Procedure Name Priority Date/Time Associated Diagnosis Comments HEMOGLOBIN A1C Routine 11/21/2021 4:55 PM EDT Chronic kidney disease, stage 2 (mild) Type 2 diabetes mellitus with diabetic chronic kidney disease (HCC) Hypertension from Last 3 Months or Most Recently Relevant to Health Maintenance Results * (ABNORMAL) Hemoglobin A1c (11/21/2021 4:55 PM EDT) Hemoglobin A1C 7.4(H) (4.0-5.6) % [facility] Comment: MONITORING: In known diabetic patients, hemoglobin A1c targets should be discussed with health care provider. DIAGNOSTIC USE: ??The [place] Diabetes Association (ADA) and the World Health Organization (WHO) recommend the use of HbA1c to diagnose diabetes using a threshold of 6.5%. Patients who have an HbA1c between 5.7% and 6.4% are considered at increased risk for developing diabetes in the future. CAUTION: Falsely low HbA1c results may be observed in patients with hemolytic anemia, homozygous forms of abnormal hemoglobin (e.g. SS, CC, SC), , recent blood loss or hemoglobin F greater than 7%. Fructosamine may be used as an alternate test in these cases. REFERENCE: ADA: Standards of Medical Care in Diabetes 2020, The Journal of Clinical and Applied Research and Education Volume 43, Supplement 1 Testing performed or reported by [facility] [employer], a Service of [facility], [address] [place] [id number] Vega Flowers MD, Supervisor Production Department [facility]# [id number] Blood (Blood, Venous) 11/21/2021 4:55 PM EDT 11/21/2021 4:56 PM EDT Dario Amor MD LAB BLOOD ORDERABLES Final Re sult [facility] from Last 3 Months or Most Recently Relevant to Health Maintenance Insurance [facility] Medicare [facility] Medicare Care Teams Transport Specialist Relationship Specialty Start Date End Date Daron Padilla [address] [place] [address] PCP - General Internal Medicine 04/21/24
--- OUTSIDE RECORDS SUMMARY | 2024-11-12 10:21 | XMS_ITS | Encounter Summary ---
Author Organization [employer] Address [address] [facility] 7t [place] [address] Care Team Providers Care Risk Modeler Name Role Phone Daron Guardado MD Primary Care Prov ider Encounter Details Date Type Department Care Team ([facility] st Contact Info) Description 08/05/2023 Orders Only [facility] CHC MED & PEDS [address] [place], [place] [phone] Daron Guardado MD [address] [place] [address] Social History Tobacco Use Types Packs/Day Years [...] Description 12/16/2024 8:30 AM EDT Office Visit [facility] MED & PEDS [address] [place] [address] Daron Guardado MD [address] [place] [address] 04/12/2025 8:00 AM EDT Office Visit [facility] ADULT DENTAL [address] [place] [address] Dylan Buitrago documented as of this encounter Visit Diagnoses Not on filedocumented in this encounter Additional Health Concerns Assessment Noted Time PHQ-9 Depression Total Score: 0 10/27/19 23 8:56 AM EDT documented as of this encounter Care Teams Risk Modeler Relationship Specialty Start Date End Date Daron Guardado MD [address] [place] [address] PCP - General Internal Medicine 04/26/20 documented as of this encounter
--- OUTSIDE RECORDS SUMMARY | 2024-11-12 10:21 | XMS_ITS | Encounter Summary ---
Author Organization [employer] Address [address] [place] [address] [address] [place] [address] Care Team Providers Care Bulk Delivery Driver Name Role Phone Daron Guardado MD Primary Care Prov ider Reason for Visit * Reason Comments Med Refill Encounter Details Date Type Department Care Team (Late Contact Info) Description 03/19/2023 Refill [facility] CHC MED & PEDS [address] [place] [address] Romelia Buitrago MD [address] [place] [address] Social History Tobacco Use Types Packs/Day Years [...] Upcoming Encounters Date Type Department Care Team ([facility] Contact Info) Description 12/16/2024 8:30 AM EDT Office Visit [facility] CHC MED & PEDS [address] [place] [address] Daron Guardado MD [address] [place] [address] 04/12/2025 8:00 AM EDT Office Visit [facility] ADULT DENTAL [address] [place] [address] Dylan Buitrago documented as of this encounter Visit Diagnoses Not on filedocumented in this encounter Additional Health Concerns Assessment Noted Time PHQ-9 Depression Total Score: 0 10/27/19 23 8:56 AM EDT documented as of this encounter Care Teams Bulk Delivery Driver Relationship Specialty Start Date End Date Daron Guardado MD [address] [place] [address] PCP - General Internal Medicine 04/26/20 documented as of this encounter
--- OUTSIDE RECORDS SUMMARY | 2024-11-12 10:21 | XMS_ITS | Encounter Summary ---
Author Organization [employer] Address [address] [facility] 7 [place] [address] Care Team Providers Care Machine Sneller Name Role Phone Daron Guardado MD Primary Care Prov ider Encounter Details Date Type Department Care Team (Latest Contact Info) Description 06/01/2019 Abstract [facility] CONVERSIONS Dental, Provider, DDS Social History Tobacco [...] [facility] MED & PEDS [address] [place] [address] Daron Guardado MD [address] [place] [address] 04/12/2025 8:00 AM EDT Office Visit [facility] ADULT DENTAL [address] [place] [address] Dylan Buitrago documented as of this encounter Visit Diagnoses Not on filedocumented in this encounter Care Teams Machine Sneller Relationship Specialty Start Date End Date Daron Guardado MD [address] [place] [address] PCP - General Internal Medicine 04/26/20 documented as of this encounter
--- OUTSIDE RECORDS SUMMARY | 2024-11-12 10:21 | XMS_ITS ---
Author Organization [facility] Address [address] [place] [address] Care Team Providers Care Mine Technician Name Role Phone Luan lao, Daron Primary Care Prov ider Mathew [facility] [phone] REASON FOR VISIT colon screening Encounters Encounter Location Date Provider Diagnosis [facility] [address] [address] 10/01/2023 Mathew Eduardo Plan Of Treatment No Information Progress Notes * ACACIA QUIGLEYOB:1955 ( 69 yo M)Acc No.[id number]:10/01/2023 Progress Notes Patient:?CAROLINE QUIGLEY Provider:?Mathew Eduardo MD :1955???Age:67 Y???Sex:Male Zain e:10/01/2023 Address:[address] [place], [place] [id number] Pcp:Daron cuellar md Subjective: * Chief Complaints: * ???1. Colon screening. * Medical History:? Objective: * Vitals:? Assessment: Plan: * Treatment: * * The named appointment provid er may or may not be the originator of this progress note, and it is not deemed complete until electronically signed by the appointment provider. Sign off status: Pending * Provider:?Mathew Eduardo MD Date:? 024 Generated for Paul duenas/Bharath/eTransmitting on:?11/12/2024 10:21 AM EDT
--- OUTSIDE RECORDS SUMMARY | 2024-11-12 10:21 | XMS_ITS | Encounter Summary ---
Author Organization [employer] Address [address] [facility] 7t [place] [address] Care Team Providers Care Broker Associate Name Role Phone Daron Guardado MD Primary Care Prov ider Encounter Details Date Type Department Care Team ([facility] st Contact Info) Description 04/24/2023 Orders Only [facility] CHC MED & PEDS [address] [place], [place] [phone] Daron Guardado MD [address] [place] [address] Social History Tobacco Use Types Packs/Day Years [...] [facility] MED [facility] P[facility] [address] [place] [address] Daron Guardado MD [address] [place] [address] 04/12/2025 8:00 AM EDT Office Visit [facility] ADULT DENTAL [address] [place] [address] Dylan Buitrago documented as of this encounter Visit Diagnoses Not on filedocumented in this encounter Additional Health Concerns Assessment Noted Time PHQ-9 Depression Total Score: 0 10/27/19 23 8:56 AM EDT documented as of this encounter Care Teams Broker Associate Relationship Specialty Start Date End Date Daron Guardado MD [address] [place] [address] PCP - General Internal Medicine 04/26/20 documented as of this encounter
--- OUTSIDE RECORDS SUMMARY | 2024-11-12 10:22 | XMS_ITS | Encounter Summary ---
Author Organization [employer] Address [address] [facility] 7t [place] [address] Care Team Providers Care Business Transformation Analyst Name Role Phone Daron Guardado MD Primary Care Prov ider Reason for Visit * Reason Comments Med Refill Encounter Details Date Type Department Care Team ([facility] st Contact Info) Description 10/07/2023 Refill [facility] CHC MED & PEDS [address] [place] [address] Daron Guardado MD [address] [place] [address] Social History Tobacco Use Types Packs/Day Years [...] Description 12/16/2024 8:30 AM EDT Office Visit [facility] ED MED & PEDS [address] [place] [address] Daron Guardado MD [address] [place] [address] 04/12/2025 8:00 AM EDT Office Visit [facility] ED ADULT DENTAL [address] [place] [address] Dylan Buitrago documented as of this encounter Visit Diagnoses Not on filedocumented in this encounter Additional Health Concerns Assessment Noted Time PHQ-9 Depression Total Score: 0 10/27/19 23 8:56 AM EDT documented as of this encounter Care Teams Business Transformation Analyst Relationship Specialty Start Date End Date Daron Guardado MD [address] [place] [address] PCP - General Internal Medicine 04/26/20 documented as of this encounter
--- OUTSIDE RECORDS SUMMARY | 2024-11-12 10:22 | XMS_ITS ---
Author Organization [facility] Address [address] [place] [address] Care Team Providers Care Wood Grinder Operator Name Role Phone Luan lao, Daron Primary Care Prov ider Unavailable Mathew Eduardo Unavailable [phone] REASON FOR VISIT screening,,hx polyps Problems Problem Type SNOMED Code ICD Code Onset Dates Problem Status W/U Status Risk Notes Problem History of polyp of colon (situation) (219324567) Personal history of colonic polyps (Z86.010) Active confirmed Problem Diverticular disease of colon (195417838) Diverticulosis of large intestine without perforation or abscess without bleeding (K57.30) Active confirmed Encounters Encounter Location Date Provider Diagnosis [facility] [address] [place], [place] [phone] 08/23/2023 Mathew Eduardo Encounter for scre ening colonoscopy Z12.11 ; Personal history of colonic polyps Z86.010 ; Diverticulosis of large intestine without perforation or abscess without bleeding K57.30 and Other hemorrhoids K64.8 Assessments Encounter Date Diagnosis (ICD Code) Assessment Notes Treatment Notes Treatment Clinical Notes Section Notes 08/23/2023 Encounter for screening colonoscopy (ICD-10 - Z12.11) 08/23/2023 Personal history of colonic polyps (ICD-10 - Z86.010) 08/23/2023 Diverticulosis of large intestine without perforation or abscess without bleeding (ICD-10 - K57.30) 08/23/2023 Other hemorrhoids (ICD-10 - K64.8) Plan Of Treatment No Information Progress Notes * YOBANI QUIGLEY:1955 ( 69 yo M)Acc No.[id number]:08/23/2023 COLON WITH MAC Patient:?CAROLINE QUIGLEY Provider:?Mathew Eduardo MD :1955???Age:67 Y???Sex:Male Zain e:08/23/2023 Address:[address] [place] [address] Pcp:Daron cuellar md Subjective: * Chief Complaints: * ???1. Screening,,hx polyps. * Medical History:? Objective: * Vitals:? Assessment: * Assessment: 1.?Encounter for screening c olonoscopy - Z12.11 (Primary)???2.?Personal history of colonic polyps - Z86.010???3.?Diverticulosis of large intestine without perforation or abscess without bleeding - K57.30???4.?Other hemorrhoids - K64.8??? Plan: * Treatment: * Procedure Codes:?G0105 COLOR EC CANCR SCR; COLNSCPY HI RISK, 0529F INTRVL 3+YRS PTS CLNSCP DOCD, 0528F RCMND FLW-UP 10 YRS DOCD, Modifiers: 1P * * The named appointment provid er may or may not be the originator of this progress note, and it is not deemed complete until electronically signed by the appointment provider. Sign off status: Pending * Provider:?Mathew Eduardo MD Date:? 024 Generated for Paul duenas/Bharath/eTransmitting on:?11/12/2024 10:21 AM EDT
== END 2024-11-12 10:19 | disposition home or self-care (01) ==
LOC: HO.HPS 09:38
PROVIDERS: PCP Internal Medicine; Visit Provider Internal Medicine
DX: E66.9 Obesity, unspecified (principal); G47.33 Obstructive sleep apnea (adult) (pediatric)
CPT/HCPCS: 99213

== ENCOUNTER → 2024-11-12 09:37 | Outpatient (BNVA) | payer MEDICARE, SELFPAY | PROVIDERS: PCP Internal Medicine; Visit Provider Internal Medicine | DX: G47.33 Obstructive sleep apnea (adult) (pediatric) (principal); E66.9 Obesity, unspecified; Z68.32 Body mass index [BMI] 32.0-32.9, adult; Z99.89 Dependence on other enabling machines and devices | CPT/HCPCS: 99212 ==

== ENCOUNTER 2025-01-25 09:14 | Outpatient (AMB) | payer MEDICARE, SELFPAY ==
--- NOTE | 2025-01-25 09:27 | MHC.OFFVIS ---
Vital Signs 01/25/25 09:28 Height 5 ft 9 in Weight 216 lb 0.848 oz BMI 31.9 BP 110/72 Blood Pressure Location Lt brachial Position Sitting Pulse 69 Pulse Source Monitor Intake Visit Reasons: 1 yr f/up Sociology Research Assistant Required: No Accompanied by: Self / Same As Patient Allergies No Known Allergies (No Known Allergies*) Allergy (Verified 11/12/24 10:20) Medication List - Last Reconciled 01/25/25 by Cameron Rain MD amlodipine 10 mg PO DAILY apixaban (Eliquis) 5 mg PO BID ascorbate calcium (vitamin C) 500 mg PO DAILY atorvastatin 80 mg PO BEDTIME chlorthalidone 25 mg PO DAILY empagliflozin (Jardiance) 25 mg PO QAM ferrous sulfate 325 mg PO BID finasteride 5 mg PO DAILY losartan 100 mg PO DAILY metformin 1,000 mg PO BID metoprolol succinate ER 200 mg PO QAM multivitamin,[id number]-mbxidgfg (Complete Multivitamin tablet) 1 tab PO DAILY tamsulosin 0.4 mg PO DAILY HPI Comments Details: Sukh comes for follow-up. He has been doing very well from cardiac perspective. He has no restriction to his activity level. Denies any exertional chest pain or shortness of breath. Denies any orthopnea, PND, leg edema. No prolonged palpitation irregular heartbeat. No bleeding issues or neurologic events. Takes all his medications. Uses CPAP at nighttime. [facility] Medical History Afib HTN (hypertension) Uncontrolled hypertension Hypertensive heart disease Obstructive sleep apnea Hyperlipidemia Diabetes mellitus Obesity Surgical History Hx of hemorrhoidectomy H/O colonoscopy Hx of knee surgery Hx of transurethral resection of prostate History of nasal surgery Family History Father CVD (cardiovascular disease) Mother Cancer Social History Patient Tobacco Use Status: Never used Tobacco Review of Systems Const Denies chills, Denies fatigue, Denies fever(s), Denies frequent falls, Denies weakness, Denies weight gain and Denies weight loss ENT Denies dizziness Card Denies chest pain, Denies leg edema, Denies lightheadedness, Denies palpitations, Denies dyspnea and Denies dyspnea on exertion Resp Denies cough, Denies dyspnea and Denies dyspnea on exertion GI Denies hematochezia Musc Denies abnormal gait, Denies muscle weakness, Denies numbness, Denies radiating pain into limb and Denies tingling Neuro Denies abnormal gait, Denies dizziness, Denies frequent falls, Denies numbness, Denies tingling and Denies weakness Endo Denies fatigue and Denies palpitations Physical Exam Vital Signs: Last Vital Signs Pulse 69 01/25/25 09:28 BP 110/72 01/25/25 09:28 BMI result Body Mass Index 31.9 Const General: healthy appearing, comfortable and no acute distress Orientation/consciousness: patient oriented x3 Neck Neck: Yes normal visual inspection and Yes no JVD Resp Effort & Inspection: normal respiratory effort Auscultation: clear to auscultation bilaterally, no crackles, no rales, no rhonchi and no wheezes Cardio Jugular venous distension: no JVD Rate: regular rate Rhythm: regular rhythm Heart sounds: S1 normal heart sound present, S2 normal heart sound present, no gallops, no murmurs and no rubs Neuro General: patient oriented x3 Extrem General: Yes normal to inspection Psych Appearance: grossly normal Mental Status: mental status grossly normal Speech and movement: Normal speech and movement present Office Procedures EKG Details: EKG shows normal sinus rhythm with right bundle-branch block with ST T wave changes suggestive of repolarization abnormality, unchanged from before [id number], Complete Assessment & Plan Assessment & Plan (1) Hypertensive heart disease: Code(s): I11.9 - Hypertensive heart disease without heart failure Category: Medical Plan: Patient with hypertensive heart disease without signs or symptoms of heart failure with moderate LVH by echocardiogram last year. Continue aggressive control blood pressure. This was discussed with him. He understands. His blood pressure is currently well optimized. Importance of good blood pressure control was discussed. Advised to monitor blood pressure at home maintain a log. Low-salt diet was discussed.. Continue current therapy. Continue CPAP therapy. Encouraged to maintain activity level as tolerated. Signs and symptoms of heart failure were discussed. (2) Paroxysmal atrial fibrillation: Code(s): I48.0 - Paroxysmal atrial fibrillation Category: Medical Plan: Paroxysmal atrial fibrillation without any obvious clinical recurrence at this point time. Continue rhythm control approach. Currently has maintain rhythm without any obvious recurrent episodes and will avoid any antiarrhythmic drug therapy. Continue metoprolol therapy. Continue CPAP therapy. Continue aggressive control blood pressure is above. Continue full oral anticoagulation, currently on Eliquis 5 mg b.i.d. with CHADSVASc score of 3. Semi annual renal function test should be pursued. Will follow up in the clinic in 1 year's time, sooner p.r.n.. Thank you for allowing me to partake in his care Orders: Orders CA echo transthoracic complete 1 Year I11.9 - Hypertensive heart disease without heart failure, I48.0 - Paroxysmal atrial fibrillation Coding Level of Care Code Est Pt Level 4 (23427) Complex EM visit Add On G2211 Diagnoses Hypertensive heart disease I11.9 Paroxysmal atrial fibrillation I48.0 CPT Codes EKG - CPT: 30114-Bmccjncxqfwrgiviv, Complete ([id number])
[2025-01-25 09:28] VITALS: BP 110/72; PULSE 69; BMI 31.9
--- OUTSIDE RECORDS SUMMARY | 2025-01-25 09:36 | XMS_ITS | Clinical Summary ---
Author Organization [facility] Address [address] [place] [address] Care Team Providers Care Travel Med Surg Rn Name Role Phone Unavailable Primary Care Provider [...] Vaccine ( - 2023-2 5 season) 2024 Depression Screening 07/08/2024 Influenza Vaccine (#1) 2025 RSV Immunization Adult Patie nts (1 [...]
--- OUTSIDE RECORDS SUMMARY | 2025-01-25 09:36 | XMS_ITS | Patient Health Record ---
Author Organization [facility] Address [address] [place] [address] Care Team Providers Care Cone Cleaner Name Role Phone Luan lao, Daron Primary Care Prov ider Unavailable Mathew Eduardo Unavailable [phone] Allergies No Known Allergies Reason For Referral [...] Problem Status W/U Status Risk Notes Problem [id number] Encounter for screening for malignant neoplasm of colon (Z12.11) Active confirmed Problem Personal history of colonic polyps (Z86.010) Active confirmed Problem Diverticular disease of colon (391884959) Diverticulosis of large intestine without perforation or abscess without bleeding (K57.30) Active confirmed Problem [id number] Preprocedural examination (Z01.818) Active confirmed Problem 807760102 History of colon polyps (Z86.010) Active confirmed Problem 238680461 Hx of adenomatou s colonic polyps (Z86.010) Active confirmed Problem 487289910 Current use of technician terminal and repeater anticoagulation (Z79.01) Active confirmed Problem 639436457 Hx of adenomatou s polyp of colon (Z86.010) Active confirmed Plan Of Treatment Future Test Test Name Order Date COLONOSCOPY 03/21/2018 COLONOSCOPY 05/28/2023 Insurance Providers Payer Name Payer Address Payer Phone Subscriber Number Group Number Insured Name Patient Relationship to Insured Coverage Start Date Coverage End Date MEDICARE OF [place] [address] [place] [address] [id number] CAROLINE QUIGLEY Self - patient is the insured [employer] ATT[employer] CLAIMS [address] [place] [address] [id number] CAROLINE QUIGLEY Self - patient is the insured Medical (General) History Medical History History ICD Code NIDDM Hypertension Denies [place],CVA,Lung disease,renal disease Prostatitis/BPH 2 or 3 previous colonoscopie s at [facility]--most recent one was > 5 years [...]
--- OUTSIDE RECORDS SUMMARY | 2025-01-25 09:36 | XMS_ITS | Encounter Summary ---
Author Organization [employer] Address [address] [place] [address] 7 [place] [address] Care Team Providers Care Sales Representative Trainee Name Role Phone Daron Guardado MD Primary Care Prov ider Encounter Details Date Type Department Care Team (Late Contact Info) Description 11/24/2022 Orders Only [facility] MED & PEDS [address] [place] [address] Daron Guardado MD [address] [place] [address] Social History Tobacco Use Types Packs/Day Years [...] Upcoming Encounters Date Type Department Care Team ([facility] Contact Info) Description 04/01/2025 8:30 AM EDT Office Visit [facility] MED & PEDS [address] [place] [address] Daron Guardado MD [address] [place] [address] 04/12/2025 8:00 AM EDT Office Visit [facility] ADULT DENTAL [address] [place] [address] Dylan Buitrago documented as of this encounter Visit Diagnoses Not on filedocumented in this encounter Additional Health Concerns Assessment Noted Time PHQ-9 Depression Total Score: 0 10/27/19 23 8:56 AM EDT documented as of this encounter Care Teams Sales Representative Trainee Relationship Specialty Start Date End Date Daron Guardado MD [address] [place] [address] PCP - General Internal Medicine 04/26/20 documented as of this encounter
--- OUTSIDE RECORDS SUMMARY | 2025-01-25 09:36 | XMS_ITS | Clinical Summary ---
Author Organization [facility] Address [address] [address] Phone Care Team Providers Care Skin Carver Name Role Phone Ashely Leach MD Primary Care Provider [phone] Allergies No known active allergies Medications atorvastatin (LIPITOR) 40 MG tablet Take 40 mg by mouth daily. Active metoprolol succinate (TOPROL-XL) 100 MG 24 hr tablet Take 200 mg by mouth daily. Active amLODIPine (NORVASC) 10 MG tablet Take 10 mg by mouth daily. Active metFORMIN (GLUCOPHAGE) 500 MG tablet Take 500 mg by mouth. Active tamsulosin (FLOMAX) 0.4 mg Cap Take 0.4 mg by mouth daily. Active finasteride (PROSCAR) 5 mg tablet Take 5 mg by mouth daily. Active ferrous sulfate 325 mg (65 mg chilkat iron) tablet Take 325 mg by mouth 2 (two) times a day with meals. Active ascorbic acid, vitamin C, (VITAMIN C) 500 MG tablet Take 500 mg by mouth daily. Active multivitamin Liqd Take 5 mL by mouth daily. Active Active Problems Problem Noted Date Diagnosed Date Left ventricular hypertrophy 09/01/2007 Overview (08/28/2014): Left ventricular hypertrophy; Severe ? Nonobstructive hypertrophic cardiomyopathy Hypertensive disorder 08/01/2007 Overview (08/28/2014): Hypertension; DX~ 2000 Hyperlipidemia 08/01/2007 Overview (08/28/2014): Hyperlipidemia; dX ~ 2000 Prostatitis 08/01/2007 Overview (08/28/2014): Prostatitis Uncoded Family Hx CAD 08/01/2007 Overview (08/28/2014): Family Hx CAD Social History Tobacco Use Types Packs/Day Years Used Date Smoking Tobacco: Never Education Answer Date Recorded Are you interested in more education? Not on joanie e 11/18/2022 Are you concerned about learning? Not on file 11/18/2022 No 11/18/2022 No 11/18/2022 Digital Access Answer Date Recorded No 12/02/2022 No 12/02/2022 No 12/02/2022 Reliable internet access at home? Not on file 12/02/2022 Device with a working camera? Not on file Sex and Gender Information Value Date Recorded Sex Assigned at Not on file Legal Sex Male 5:40 PM EST Gender Identity Not on file Sexual Orientation Not on file Last Filed Vital Signs Vital Sign Reading Time Taken Comments Blood Pressure 119/69 04/02/2019 2:05 PM EDT Pulse 79 04/02/2019 2:05 PM EDT Temperature - - Respiratory Rate - - Oxygen Saturation - - Inhaled Oxygen Concentration - - Weight 102.1 kg (225 lb) 02/02/2019 11:27 AM EDT Height 177.8 cm (5' 10 ) 08/30/2011 1:09 PM EST Body Mass Index 32.28 08/30/2011 1:09 PM EST Plan of Treatment Health Maintenance Due Date Last Done Comments Adult Td,Tdap Booster 1955 BLOOD PRESSURE 1955 DEPRESSION SCREENING 1965 HEPATITIS C SCREENING 11/12/1971 SMOKING STATUS SCREENING (On ce After 26 Yrs) 11/12/1979 COLOGUARD 1998 FIT TEST 1998 FOBT 1998 SIGMOIDOSCOPY 1998 VIRTUAL COLONOSCOPY 1998 PNEUMOCOCCAL VACCINES (50+ years) (1 of 1 - PCV) 11/12/2003 ZOSTER VACCINES (1 of 2) 11/12/2003 CREATININE LEVEL 01/11/2016 01/10/2015, 04/12/2014, 07/21/2013 COLONOSCOPY 05/26/2018 05/26/2008 COLORECTAL CANCER SCREENING 05/26/2018 LIPID PANEL 01/11/2020 01/10/2015, 04/12/2014, 07/21/2013 COVID-19 VACCINE ( - 2023-2 5 season) 2024 RSV VACCINE (1 - 1-dose 75+ series) 2028 HEPATITIS A VACCINES Aged Out No long er eligible based on patient's age to complete this topic HIB VACCINES Aged Out No longer eligi ble based on patient's age to complete this topic MENINGOCOCCAL VACCINES (ACWY) Aged Out No longer eligible based on patient's age to complete this topic MENINGOCOCCAL VACCINES (B) Aged Out N o longer eligible based on patient's age to complete this topic Medical Devices Not on file Procedures Procedure Name Priority Date/Time Associated Diagnosis Comments CHEMISTRY TEST - [facility] Routine 01/10/2015 4:29 PM EDT CHEMISTRY TEST - [facility] Routine 01/10/2015 4:29 PM EDT ENDOSCOPY, COLON 05/26/2008 10:1 0 AM EST from Last 3 Months or Most Recently Relevant to Health Maintenance Results * Chemistry Test - [facility] (01/10/2015 4:29 PM EDT) Only the most recent of2 resultswithin the time period is included. Cholesterol 147 100 - 199 mg/dL [facility] HDL 52 40 - 77 mg/dL [facility] non-HDL CHOL 95.0 mg/dL [facility] Comment:Goal is LDL Goal + 3 0 mg/dL TCHOL/HDL ratio 2.8 [facility] Comment: Cardiovascular Risk Assessment MEN WOMEN Risk Assessment 3.43 3.27 Below Average 4.97 4.44 Average 9.55 7.05 Above Average 23.39 11.04 3X Above Average Direct LDL w/billing 74 0 - 130 mg/dL [facility] 01/10/2015 4:29 PM EDT 01/10/2015 4:29 PM EDT us Ray Araiza MD LAB BLOOD ORDERABLES Fi nal Result [facility] [address] [place] [address] * ENDOSCOPY, COLON (05/26/2008 10:10 AM EST) 05/26/2008 10:1 0 AM EST Narrative 05/26/2008 10:10 AM EST Report Number: [id number] Report Status: Final Type: Colonoscopy Date: 05/26/2008 10:10 [facility] OPERATIVE PROCEDURE REPORT - 05/26/2008 PATIENT: Cory Rodriguez MR: [id number] BIRTHDATE: 1955 GENDER: male ENDOSCOPIST: Miguelangel Carr M.D. PROCEDURE: Colonoscopy, anoscopy and ligation of internal hemorrhoids (3) INDICATIONS: Screening, Hematochezia MEDICATIONS: Fentanyl 50 mg IV, Versed 5 mg IV, Demerol 50 mg IV DESCRIPTION OF PROCEDURE: After the risks and benefits of the procedure were thoroughly explained, informed consent was obtained. Digital rectal exam was performed and revealed no abnormalities. The endoscope was introduced through the anus and advanced to the terminal ileum which was intubated for a short distance. The quality of the prep was good. The instrument was then slowly withdrawn as the colon was fully examined. Mild diverticulosis was found in the sigmoid colon. Retroflexed views in the rectum revealed moderate internal hemorrhoids. The scope was then completely withdrawn from the patient and the procedure terminated. COMPLICATIONS: None ENDOSCOPIC IMPRESSION: 1) Mild diverticulosis in the sigmoid colon 2) Moderate internal hemorrhoids 3) Normal colonoscopy otherwise RECOMMENDATIONS: 1) Call for heavy bleeding, fever, urinary retention or increasing anal pain REPEAT EXAM: 10 year(s). Miguelangel Carr M.D. CC: Davey Tadeo eSIGNED: Miguelangel Carr at 05/26/2008 11:02 AM OPERATIVE REPORT Cory Rodriguez, [id number] Procedure Note Miguelangel Carr MD - 05/26/2008 10:10 AM EST Report Number: [id number] Report Status: Final Type: Colonoscopy Date: 05/26/2008 10:10 [facility] OPERATIVE PROCEDURE REPORT - 05/26/2008 PATIENT: Cory Rodriguez MR: [id number] BIRTHDATE: 1955 GENDER: male ENDOSCOPIST: Miguelangel Carr M.D. PROCEDURE: Colonoscopy, anoscopy and ligation of internal hemorrhoids (3) INDICATIONS: Screening, Hematochezia MEDICATIONS: Fentanyl 50 mg IV, Versed 5 mg IV, Demerol 50 mg IV DESCRIPTION OF PROCEDURE: After the risks and benefits of theprocedure were thoroughly explained, informed consent was obtained. Digitalrectal exam was performed and revealed no abnormalities. The endoscope was introduced through the anus and advanced to the terminal ileum which was intubated for a short distance. The quality of the prep was good. The instrument was then slowly withdrawn as the colon was fully examined. Mild diverticulosis was found in the sigmoid colon. Retroflexed views in the rectum revealed moderate internal hemorrhoids. The scope was then completely withdrawn from the patient and the procedure terminated. COMPLICATIONS: None ENDOSCOPIC IMPRESSION: 1) Mild diverticulosis in the sigmoid colon 2) Moderate internal hemorrhoids 3) Normal colonoscopy otherwise RECOMMENDATIONS: 1) Call for heavy bleeding, fever, urinary retention or increasing anal pain REPEAT EXAM: 10 year(s). Miguelangel Carr M.D. CC: Davey Tadeo eSIGNED: Miguelangel Carr at 05/26/2008 11:02 AM OPERATIVE REPORT Cory Rodriguez, [id number] us Conversion Provider Not In Sys GI PROCEDURE ORDE RABLES Final Result from Last 3 Months or Most Recently Relevant to Health Maintenance Insurance MEDICARE PART A & B Member Subscriber Plan / Payer (Ef fective 2018-Present) Name:Cory Rodriguez Member ID:[id number] Relation to Subscriber:Self Name:Cory Rodriguez Subscriber ID:[id number] Payer ID:[id number] Group ID:Not on file Type:Medicare Address: [employer] [address] [place] [id number] [employer] MEDEX SUPPLEMENT MEDICARE PART A & B [facility] MEDEX SUPPLEMENT MEDICARE PART A & B [employer] MEDEX SUPPLEMENT MEDICARE PART A & B [employer] [facility] MEDEX SUPPLEMENT MEDICARE PART A & B [employer] [facility] MEDEX SUPPLEMENT MEDICARE PART A & B [employer] MEDEX SUPPLEMENT MEDICARE PART A & B [facility] MEDEX SUPPLEMENT MEDICARE PART A & B [employer] SUPPLEMENT MEDICARE PART A & B [employer] SUPPLEMENT Care Teams Skin Carver Relationship Specialty Start Date End Date Ashely Leach MD [address] [place] [id number] PCP - General Family Medicine 12/02/18 Additional Source Comments The information contained in this document represents components of the legal health record. It is not the complete legal health record.[facility]
--- OUTSIDE RECORDS SUMMARY | 2025-01-25 09:36 | XMS_ITS | Clinical Summary ---
Author Organization [facility] Address [address] [address] Phone Care Team Providers Care Revit Drafter Name Role Phone Daron Padilla Primary Care Provider [phone] Allergies No known active allergies Medications tamsulosin [...] Visit [facility] [address] [facility] [address] [place] [address] Gayla Simon ARNP [address] [facility] [address] [place] [address] Health Maintenance Due Date Last Done Comments Colorectal Cancer Screening: Annual FOBT 2002 Colorectal Cancer Screening: Colonoscopy 2002 Colorectal Cancer Screening: Sigmoidoscopy 2002 Diabetes: Ophthalmology Exam 08/08/2020 Diabetes: Pedal Pulse Checked 08/08/2020 Diabetes: Sensory Foot Exam 08/08/2020 Diabetes: Visual Foot Exam 08/08/2020 Diabetes: Hemoglobin A1C 01/13/2024 024, 11/21/2021, 03/30/2020, Additional history exists Influenza Vaccine (#1) 2025 2, 03/27/2019, 04/04/2018, Additional history exists Pneumococcal Vaccine: [...] PM EDT) Hemoglobin A1C 7.4(H) (4.0-5.6) % [facility] Comment: MONITORING: In known diabetic patients, hemoglobin A1c targets should be discussed with health care provider. DIAGNOSTIC USE: The [place] Diabetes Association (ADA) and the World Health [...] Supplement 1 Testing performed or reported by [facility] [employer], a Service of [facility], [address] [place] [address] Vega Flowers MD, Cherry Di[facility]# [id number] Blood specimen (specimen) Venous blood / Unknown 11/21/2021 4:55 PM EDT 11/21/2021 4:56 PM EDT Dario Amor MD LAB BLOOD ORDERABLES Final Re sult [facility] from Last 3 Months or Most Recently Relevant to Health Maintenance Insurance [facility] Medicare [facility] Medicare Care Teams Revit Drafter Relationship Specialty Start Date End Date Daron Padilla [address] [place] [address] PCP - General Internal Medicine 04/21/24
== END 2025-01-25 09:46 | disposition home or self-care (01) ==
LOC: HO.HCS 09:14
PROVIDERS: PCP Internal Medicine; Visit Provider Internal Medicine Cardiovascular Disease
DX: I11.9 Hypertensive heart disease without heart failure (principal); I48.0 Paroxysmal atrial fibrillation
CPT/HCPCS: 93010; 99214; G2211

== ENCOUNTER → 2025-01-25 09:14 | Outpatient (BNVA) | payer MEDICARE, SELFPAY | PROVIDERS: PCP Internal Medicine; Visit Provider Internal Medicine Cardiovascular Disease | DX: I11.9 Hypertensive heart disease without heart failure (principal); I48.0 Paroxysmal atrial fibrillation; Z79.01 Long term (current) use of anticoagulants; I45.10 Unspecified right bundle-branch block; R94.31 Abnormal electrocardiogram [ECG] [EKG] | CPT/HCPCS: 93005; 99212 ==

== ENCOUNTER 2025-04-02 15:27 | Outpatient (REF) | payer MEDICARE, SELFPAY ==
--- OUTSIDE RECORDS SUMMARY | 2023-10-01 05:30 | XMS_ITS ---
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 Colon screening. * Medical History: Objective: * Vitals: Assessment: Plan: * Treatment: * * The named appointment provid er may or may not be the originator of this progress note, and it is not deemed complete until electronically signed by the appointment provider. Sign off status: Pending * Provider: Gab Eduardo MD Date: 0 10/01/2023 Generated for Printi ng/Fanadeem/eTransmitting on: 0 04/02/2025 03:53 PM EDT
--- OUTSIDE RECORDS SUMMARY | 2025-04-01 08:30 | XMS_ITS | Encounter Summary ---
Author Organization [employer] Address [address] [place] [address] Care Team Providers Care Nnps Name Role Phone Daron Guardado MD Primary Care Prov ider Reason for Referral * Consultation (Routine) - Closed Specialty Diagnoses / Procedures Referred By Contuday t Referred To Contact Otolaryngology Diagnoses Chronic rhinitis Daron Guardado MD [address] [place] [address] Phone: tel: fax: [facility] [address] Phone: tel: fax: Referral ID Status Reason Start Date Expiration Date V isits Requested Visits Authorized [id number] Closed Specialty Services Required 04/01/2025 04/01/2026 1 1 Encounter Details Date Type Department Care Team (Late st Contact Info) Description 04/01/2025 8:30 AM EDT Office Visit [facility] MED & PEDS [address] [place], [place] [phone] Daron Guardado MD [address] [place], [place] [phone] Primary hypertension (Primary Dx); Type 2 diabetes mellitus with stage 3a chronic kidney disease, without long-term current use of insulin (CMS/HCC); Vertigo; Other fatigue; Iron deficiency anemia, unspecified iron deficiency anemia type; Chronic rhinitis Social History Tobacco Use Types Packs/Day Years [...] Orientation Straight 05/07/2022 10 :28 AM EDT Travel History Travel Start Travel End [place] 03/14/2025 03/18/2025 documented as of this encounter Last Filed Vital Signs Vital Sign Reading Time Taken Comments Blood Pressure 132/84 04/01/2025 8:51 AM EDT Pulse 68 04/01/2025 8:51 AM EDT Temperature 36.8 C (98.3 F) 04/01/2025 8:51 AM EDT Respiratory Rate 16 04/01/2025 8:51 AM EDT Oxygen Saturation - - Inhaled Oxygen Concentration - - Weight 96.6 kg (213 lb) 04/01/2025 8:51 AM EDT Height 172.7 cm (5' 8 ) 04/01/2025 8:51 AM EDT Body Mass Index 32.39 04/01/2025 8:51 AM EDT documented in this encounter Progress Notes * Daron Crespo MD - 04/01/2025 8:30 AM EDT Subjective Patient ID: Cory Rodriguez is a 69 y.o. male who presents for No chief complaint on file.. Hypertension This is a chronic problem. The problem is controlled. Pertinent negatives include no chest pain, headaches, palpitations or shortness of breath. Review of Systems Respiratory: Negative for shortness of breath. Cardiovascular: Negative for chest pain and palpitations. Neurological: Negative for headaches. Objective Physical Exam Constitutional: Appearance: Normal appearance. Cardiovascular: Rate and Rhythm: Normal rate. Heart sounds: No murmur heard. Pulmonary: Effort: Pulmonary effort is normal. No respiratory distress. Breath sounds: No stridor. No wheezing or rhonchi. Abdominal: General: Abdomen is flat. There is no distension. Palpations: There is no mass. Tenderness: There is no abdominal tenderness. Hernia: No hernia is present. Neurological: General: No focal deficit present. Mental Status: He is alert and oriented to person, place, and time. Psychiatric: Mood and Affect: Mood normal. Behavior: Behavior normal. Assessment/Plan Problem List Items Addressed This Visit Type 2 diabetes mellitus with stage 3a chronic kidney disease, without long-term current use of insulin ([facility]) Improved, keep low carb/no sugar diet, exercise as tolerated, target A1c <7.0. follow up in 3 months Relevant Orders POCT Glucose (Completed) POCT Hgb A1c (Completed) Hypertension - Primary Controlled, keep low sodium diet and exercise as tolerated, keep blood pressure log Vertigo Will provide meclizine, call back if worsening to consider vestibular rehab Relevant Medications meclizine (Antivert) 25 MG tablet Chronic rhinitis Patient has tried Flonase without improvement, will refer to ent Relevant Medications meclizine (Antivert) 25 MG tablet Other Relevant Orders Referral to ENT Other Visit Diagnoses Other fatigue Relevant Orders TSH W/Reflex to FT4 CBC auto differential Vitamin B12 (Cobalamin) and Folate Panel, Serum Testosterone, Free (Dialysis) And Total, MS Iron deficiency anemia, unspecified iron deficiency anemia type Relevant Orders Iron And Total Iron Binding Capacity documented in this encounter Miscellaneous Notes * Assessment & Plan Note - Daron Crespo MD - 04/01/2025 9:16 AM EDTAssociated Problem(s): Chronic rhinitis Patient has tried Flonase without improvement, will refer to ent * Assessment & Plan Note - Daron Crespo MD - 04/01/2025 9:11 AM EDTAssociated Problem(s): Vertigo Will provide meclizine, call back if worsening to consider vestibular rehab * Assessment & Plan Note - Daron Crespo MD - 04/01/2025 9:10 AM EDTAssociated Problem(s): Type 2 diabetes mellitus with stage 3a chronic kidney disease, without long-term current use of insulin ([facility]) Improved, keep low carb/no sugar diet, exercise as tolerated, target A1c <7.0. follow up in 3 months * Assessment & Plan Note - Daron Crespo MD - 04/01/2025 9:09 AM EDTAssociated Problem(s): Hypertension Controlled, keep low sodium diet and exercise as tolerated, keep blood pressure log documented in this encounter Plan of Treatment Upcoming Encounters Date Type Department Care Team (Late st Contact Info) Description 04/12/2025 8:00 AM EDT Office Visit [facility] ADULT DENTAL [address] [place] [address] Dylan Buitrago Scheduled Orders Name Type Priority Associated Diagnoses Orde r Schedule TSH W/Reflex to FT4 Lab Routine Other fatigue Expected: 04/01/2025 (Approximate), Expires: 04/01/2026 CBC auto differential Lab Routine Other fatigue Expected: 04/01/2025 (Approximate), Expires: 04/01/2026 Iron And Total Iron Binding Capacity Lab Routine Iron deficiency anemia, unspecified iron deficiency anemia type Expected: 04/01/2025, Expires: 04/01/2026 Vitamin B12 (Cobalamin) and Folate Panel, Serum Lab Routine Other fatigue Expected: 04/01/2025 (Approximate), Expires: 04/01/2026 Testosterone, Free (Dialysis) And Total, MS Lab Routine Other fatigue Expected: 04/01/2025 (Approximate), Expires: 04/01/2026 Scheduled Referrals Name Type Priority Associated Diagnoses Orde r Schedule Referral to ENT Outpatient Referral Routine Chronic rhinitis Expected: 04/01/2025 (Approximate), Expires: 04/01/2026 documented as of this encounter Procedures Procedure Name Priority Date/Time Associated Diagnosis Comments POCT GLYCATED HEMOGLOBIN, TOTAL Routine 04/01/2025 8:55 AM EDT Type 2 diabetes mellitus with stage 3a chronic kidney disease, without long-term current use of insulin ([facility]) POCT GLUCOSE Routine 04/01/2025 8:54 AM EDT Type 2 diabetes mellitus with stage 3a chronic kidney disease, without long-term current use of insulin ([facility]) documented in this encounter Results * (ABNORMAL) POCT Hgb A1c (04/01/2025 8:55 AM EDT) Hemoglobin A1C 7.4(A) 4.0 - 5.7 % [employer] Lot # [id number] Lot# Expiration Date ,[id number] Blood 04/01/2025 8:55 AM EDT Daron Crespo MD POINT OF CARE TEST ENTER/EDIT ORDERABLES Final Result * (ABNORMAL) POCT Glucose (04/01/2025 8:54 AM EDT) Glucose Blood, POC 124(A) 60 - 200 mg/dL [employer] Lot # [id number] Lot# Expiration Date Blood Capillary blood specimen / Unknown 04/01/2025 8:54 AM EDT Daron Crespo MD POINT OF CARE TEST ENTER/EDIT ORDERABLES Final Result documented in this encounter Visit Diagnoses Diagnosis Primary hypertension- Primary Unspecified essential hypertension Type 2 diabetes mellitus with stage 3a chronic kidney disease, without long-term current use of insulin ([facility]) Vertigo Dizziness and giddiness Other fatigue Iron deficiency anemia, unspecified iron deficiency anemia type Chronic rhinitis documented in this encounter Additional Health Concerns Assessment Noted Time PHQ-9 Depression Total Score: 0 08/17/19 25 8:48 AM EST documented as of this encounter Care Teams Nnps Relationship Specialty Start Date End Date Daron Guardado MD [address] [place] [id number] PCP - General Internal Medicine 04/26/20 documented as of this encounter
--- OUTSIDE RECORDS SUMMARY | 2025-04-02 15:53 | XMS_ITS | Encounter Summary ---
Author Organization [facility] Address [address] [facility] [address] [place] [address] Care Team Providers Care Tailer In Name Role Phone Daron Guardado MD Primary Care Prov ider Encounter Details Date Type Department Care Team (Latest Contact Info) Description 06/01/2019 Abstract [facility] CONVERSIONS Dental, Provider, DDS Social History Tobacco Use Types Packs/Day Years Used Date Smoking Tobacco: Never Assessed Sex and Gender Information Value Date Recorded Sex Assigned at Male 05/07/2022 10:28 AM EDT Legal Sex Male 10:28 AM EDT Gender Identity Male 05/07/2022 10:28 AM EDT Sexual Orientation Straight 05/07/2022 10 :28 AM EDT Travel History Travel Start Travel End [place] 03/14/2025 03/18/2025 documented as of this encounter Plan of Treatment Upcoming Encounters Date Type Department Care Team ( st Contact Info) Description 04/12/2025 8:00 AM EDT Office Visit [facility] ADULT DENTAL [address] [place] [address] Dylan Buitrago documented as of this encounter Visit Diagnoses Not on filedocumented in this encounter Care Teams Tailer In Relationship Specialty Start Date End Date Daron Guardado MD [address] [place] [address] PCP - General Internal Medicine 04/26/20 documented as of this encounter
--- OUTSIDE RECORDS SUMMARY | 2025-04-02 15:53 | XMS_ITS | Clinical Summary ---
Author Organization [facility] Address [address] [address] Phone Care Team Providers Care Sales Representative Door To Door Name Role Phone Daron Padilla Primary Care Provider [phone] Allergies No known active allergies Medications tamsulosin [...] Visit [facility] [address] [facility] [address] [place] [address] Gayla Simon ARNP [address] [facility] [address] [place] [address] Health Maintenance Due Date Last [...] PM EDT) Hemoglobin A1C 7.4(H) (4.0-5.6) % [facility] Comment: MONITORING: In known diabetic patients, hemoglobin A1c targets should be discussed with health care provider. DIAGNOSTIC USE: The [place] Diabetes Association (ADA) and the World Health [...] Supplement 1 Testing performed or reported by [facility] [employer], a Service of [facility], [address] [place] [address] Vega Flowers MD, Client Care Representative [facility]# [id number] Blood specimen (specimen) Venous blood / Unknown 11/21/2021 4:55 PM EDT 11/21/2021 4:56 PM EDT Dario Amor MD LAB BLOOD ORDERABLES Final Re sult [facility] from Last 3 Months or Most Recently Relevant to Health Maintenance Insurance [facility] Medicare [facility] Medicare Care Teams Sales Representative Door To Door Relationship Specialty Start Date End Date Daron Padilla [address] [place] [address] PCP - General Internal Medicine 04/21/24
--- OUTSIDE RECORDS SUMMARY | 2025-04-02 15:53 | XMS_ITS | Encounter Summary ---
Author Organization [employer] Address [address] [facility] [address] [facility] [address] 7t [place] [address] Care Team Providers Care Four Horse Hitch Driver Name Role Phone Daron Guardado MD Primary Care Prov ider Encounter Details Date Type Department Care Team ([facility] st Contact Info) Description 02/02/2025 Orders Only [facility] MED & PEDS [address] [place], [place] [phone] ProviderChang MD Social History Tobacco Use Types [...] Upcoming Encounters Date Type Department Care Team ([facility] st Contact Info) Description 04/12/2025 8:00 AM EDT Office Visit [facility] ADULT DENTAL [address] [place] [address] Dylan Buitrago documented as of this encounter Procedures Procedure Name Priority Date/Time Associated Diagnosis Comments ECG 12-LEAD Routine 01/25/2025 4:02 PM EDT documented in this encounter Results * ECG 12 lead (01/25/2025 4:02 PM EDT) us Historical Provider ECG ORDERABLES Final Res ult documented in this encounter Visit Diagnoses Not on filedocumented in this encounter Additional Health Concerns Assessment Noted Time PHQ-9 Depression Total Score: 0 08/17/19 25 8:48 AM EST documented as of this encounter Care Teams Four Horse Hitch Driver Relationship Specialty Start Date End Date Daron Guardado MD [address] [place] [address] PCP - General Internal Medicine 04/26/20 documented as of this encounter
--- OUTSIDE RECORDS SUMMARY | 2025-04-02 15:53 | XMS_ITS | Encounter Summary ---
Author Organization [employer] Address [address] [facility] 7t [place] [address] Care Team Providers Care Inspector Elevators Name Role Phone Daron Guardado MD Primary Care Prov ider Encounter Details Date Type Department Care Team (Latest Contact Info) Description 04/28/2020 Abstract [facility] CONVERSIONS Dental, Provider, [...] [facility] ADULT DENTAL [address] [place] [address] Dylan Buitrago documented as of this encounter Visit Diagnoses Not on filedocumented in this encounter Care Teams Inspector Elevators Relationship Specialty Start Date End Date Daron Guardado MD [address] [place] [address] PCP - General Internal Medicine 04/26/20 documented as of this encounter
--- OUTSIDE RECORDS SUMMARY | 2025-04-02 15:53 | XMS_ITS | Encounter Summary ---
Author Organization [employer] Address [address] [facility] 7t [place] [address] Care Team Providers Care Machine Taper Name Role Phone Daron Guardado MD Primary Care Prov ider Reason for Visit * Reason Comments Med Refill Encounter Details Date Type Department Care Team ([facility] Contact Info) Description 04/11/2024 Refill [facility] CHC MED & PEDS [address] [place] [address] Daron Guardado MD [address] [place] [address] Social History Tobacco Use Types Packs/Day Years [...] Description 04/12/2025 8:00 AM EDT Office Visit [facility] ADULT DENTAL [address] [place] [address] Dylan Buitrago documented as of this encounter Visit Diagnoses Not on filedocumented in this encounter Additional Health Concerns Assessment Noted Time PHQ-9 Depression Total Score: 0 10/27/19 23 8:56 AM EDT documented as of this encounter Care Teams Machine Taper Relationship Specialty Start Date End Date Daron Guardado MD [address] [place] [address] PCP - General Internal Medicine 04/26/20 documented as of this encounter
--- OUTSIDE RECORDS SUMMARY | 2025-04-02 15:53 | XMS_ITS | Encounter Summary ---
Author Organization [employer] Address [address] [facility] [address] [place] [address] Care Team Providers Care Ground Instructor Basic Name Role Phone Daron Guardado MD Primary Care Prov ider Reason for Visit * Reason Comments Med Refill Encounter Details Date Type Department Care Team (Late Contact Info) Description 03/19/2023 Refill [facility] MED & PEDS [address] [place] [address] Romelia Buitrago MD [address] [place] [address] Social History Tobacco Use Types Packs/Day Years [...] EDT Travel History Travel Start Travel End [place] 03/14/2025 03/18/2025 documented as of this encounter Plan of Treatment Upcoming Encounters Date Type Department Care Team ([facility] Contact Info) Description 04/12/2025 8:00 AM EDT Office Visit [facility] ADULT DENTAL [address] [place] [address] Dylan Buitrago documented as of this encounter Visit Diagnoses Not on filedocumented in this encounter Additional Health Concerns Assessment Noted Time PHQ-9 Depression Total Score: 0 10/27/19 23 8:56 AM EDT documented as of this encounter Care Teams Ground Instructor Basic Relationship Specialty Start Date End Date Daron Guardado MD [address] [place] [address] PCP - General Internal Medicine 04/26/20 documented as of this encounter
--- OUTSIDE RECORDS SUMMARY | 2025-04-02 15:53 | XMS_ITS | Clinical Summary ---
Author Organization [employer] Address [address] [facility] 7t [place] [address] Care Team Providers Care Copy Center Associate Name Role Phone Daron Guardado MD Primary Care Prov ider Allergies No known active allergies Medications Multiple Vitamin (Multi-Vitamin) tablet take 1 tablet by oral route every day with food Active amLODIPine (Norvasc) 10 MG tablet Take 10 mg by mouth in the morning. Active ascorbic acid (Vitamin C) 500 MG tablet Take 500 mg by mouth in the morning. Active tamsulosin (Flomax) 0.4 MG 24 hr capsule TAKE 1 CAPSULE BY MOUTH EVERY DAY IN THE MORNING 90 capsule 2 03/31/20 24 Active atorvastatin (Lipitor) 80 MG tablet TAKE 1 TABLET BY MOUTH EVERY DAY 90 tablet 3 04/23/20 24 Active fluticasone (Flonase) 50 MCG/ACT nasal spray Administer 1-2 sprays into each nostril Once per day. Shake gently. Before first use, prime pump. After use, clean tip and replace cap. 16 g 2 09/17/19 25 026 Active clotrimazole (Lotrimin) 1 % cream Apply topically every 12 (twelve) hours. 30 g 3 09/17/19 25 Active chlorthalidone (Hygroton) 25 MG tabletIndication s:Primary hypertension TAKE 1 TABLET BY MOUTH EVERY DAY IN THE MORNING 90 tablet 1 10/06/19 25 Active metoprolol succinate XL (Toprol-XL) 100 MG 24 hr tablet TAKE 2 TABLETS (200 MG) BY MOUTH IN THE MORNING 180 tablet 3 10/08/19 25 026 Active losartan (Cozaar) 100 MG tablet TAKE 1 TABLET BY MOUTH EVERY DAY IN THE MORNING 90 tablet 1 10/08/19 25 Active metFORMIN (Glucophage) 1000 MG tablet TAKE 1 TABLET BY MOUTH WITH BREAKFAST AND EVENING MEALS 180 tablet 1 12/09/19 25 Active Jardiance 25 MGIndications:Ty pe 2 diabetes mellitus with stage 3a chronic kidney disease, without long-term current use of insulin ([facility]) TAKE ONE TABLET BY MOUTH EVERY MORNING 90 tablet 3 12/17/19 25 Active Eliquis 5 MG tablet TAKE ONE TABLET TWICE DAILY 180 tablet 1 01/14/20 25 Active finasteride (Proscar) 5 MG tablet TAKE 1 TABLET BY MOUTH EVERY MORNING. SWALLOW WHOLE. 90 tablet 03/06/20 25 Active meclizine (Antivert) 25 MG tablet Take 1 tablet (25 mg) by mouth if needed in the morning, at noon, and at bedtime for dizziness. 30 tablet 1 04/01/20 25 025 Active glucose blood (OneTouch Verio) test strip For glucose monitoring once a day 60 each 04/01/20 25 026 Active finasteride (Proscar) 5 MG tablet TAKE 1 TABLET BY MOUTH EVERY MORNING. SWALLOW WHOLE. 90 tablet 12/05/19 25 025 Discontinued Active Problems Problem Noted Date Diagnosed Date Vertigo 04/01/2025 Assessment & Plan (04/01/2025 9:11 AM EDT): Will provide meclizine, call back if worsening to consider vestibular rehab Chronic rhinitis 04/01/2025 Assessment & Plan (04/01/2025 9:16 AM EDT): Patient has tried Flonase without improvement, will refer to ent Hypertensive heart disease 01/15/2024 Obesity 01/15/2024 Afib 01/15/2024 Assessment & Plan (12/16/2024 9:03 AM EDT): On eliquis, metoprolol, followed by cardiology, no changes will be made, denied chest pain/shortness of breath Assessment & Plan (08/17/2024 9:38 AM EST): [...] use of insulin 03/29/2015 Assessment & Plan (04/01/2025 9:10 AM EDT): Improved, keep low carb/no sugar diet, exercise as tolerated, target A1c <7.0. follow up in 3 months Assessment & Plan (12/16/2024 9:09 AM EDT): Uncontrolled, A1c increased to 7.9%, patient wants to improve diet, will follow up in 3 months, Assessment & Plan (08/17/2024 9:47 AM EST): [...] (10/26/2022): Hypertension; DX~ 2000 Assessment & Plan (04/01/2025 9:09 AM EDT): Controlled, keep low sodium diet and exercise as tolerated, keep blood pressure log Assessment & Plan (12/16/2024 9:04 AM EDT): Stable, no changes will be made, encouraged low sodium diet and exercise as tolerated Assessment & Plan (08/17/2024 9:48 AM EST): [...] Encounters Date Type Department Care Team Description 04/01/2025 8:30 AM EDT Office Visit [facility] MED & PEDS [address] [place] [address] Daron Guardado MD Primary hypertension (Primary Dx); Type 2 diabetes mellitus with stage 3a chronic kidney disease, without long-term current use of insulin ([facility]); Vertigo; Other fatigue; Iron deficiency anemia, unspecified iron deficiency anemia type; Chronic rhinitis 04/01/2025 Travel 03/31/2025 Telephone [facility]EDS [address] [place] [address] Daron Guardado MD chart prep 03/04/2025 Refill [facility] MED & PEDS [address] [place] [address] Daron Guardado MD 02/02/2025 Orders Only [facility] MED & PEDS [address] [place] [address] Chang Cherry MD 01/12/2025 Refill [facility] MED & PEDS [address] [place] [address] Mary Ritchie MD from Last 3 Months Immunizations Immunization Administration Dates Next Due Influenza High-dose Quadriva [...] Travel Start Travel End [place] 03/14/2025 03/18/2025 Last Filed Vital Signs Vital Sign Reading Time Taken Comments Blood Pressure 132/84 04/01/2025 8:51 AM EDT Pulse 68 04/01/2025 8:51 AM EDT Temperature 36.8 C (98.3 F) 04/01/2025 8:51 AM EDT Respiratory Rate 16 04/01/2025 8:51 AM EDT Oxygen Saturation 96% 01/15/2024 8:39 AM EDT Inhaled Oxygen Concentration - - Weight 96.6 kg (213 lb) 04/01/2025 8:51 AM EDT Height 172.7 cm (5' 8 ) 04/01/2025 8:51 AM EDT Body Mass Index 32.39 04/01/2025 8:51 AM EDT Plan of Treatment Upcoming Encounters Date Type Department Care Team (Late st Contact Info) Description 04/12/2025 8:00 AM EDT Office Visit [facility] ADULT DENTAL [address] [place] [address] Dylan Buitrago Health Maintenance Due Date Last Done Comments CT Colonography 1953 FIT DNA/Cologuard 1955 FIT 1955 FOBT 1955 Sigmoidoscopy 1955 Eye Exam 11/12/1963 Lipid Panel 10/13/2024 10/14/2023, 04/07, 10/26/2022, Additional history exists Dental X-Ray: Bitewings 03/04/2025 03/03/2024, 02/04 COVID-19 Vaccine ( season) 2025 04/19/2024, 05/18/2023, 05/11/2022, Additional history exists Influenza Vaccine (#1) 2025 , 04/04/2024, 03/20/2023, Additional history exists Dental Oral Exam 04/09/2025 10/07/2024, , 02/04/2023 Dental Prophylaxis 04/09/2025 10/07/2024, 0 03/03/2024, 09/02/2023, Additional history exists Diabetes: Hemoglobin A1C 07/01/2025 025, 12/16/2024, 08/17/2024, Additional history exists Alcohol/Substance Use Screening 08/17/2025 08/17/2024 Depression Screening 08/17/2025 08/17/2024, 08/17/19 Diabetes: Foot Exam 08/17/2025 08/17/2024, 08/17/2024, 08/17/2024, [...] 11/14/2018 Zoster Vaccines Completed 11/14/2023, 07/09, 08/15/2015 HIB Vaccines Aged Out No longer eligi [...] without long-term current use of insulin (CMS/HCC) POCT GLUCOSE Routine 04/01/2025 8:54 AM EDT Type 2 diabetes mellitus with stage 3a chronic kidney disease, without long-term current use of insulin (CMS/HCC) ECG 12-LEAD Routine 01/25/2025 4:02 PM EDT PROPHYLAXIS - ADULT Routine 10/07/2024 8 :00 AM EDT PERIODIC ORAL EVALUATION - ESTABLISHED PATIENT Routine 10/07/2024 8:00 AM EDT INTRAORAL - COMPLETE SERIES OF RADIOGRAPHIC IMAGES [...] to Health Maintenance Results * (ABNORMAL) POCT Hgb A1c (04/01/2025 8:55 AM EDT) [facility] Hemoglobin A1C 7.4(A) 4.0 - 5.7 % QC Media Lot # [id number] Lot# Expiration Date Blood 04/01/2025 8:55 AM EDT Daron Crespo MD POINT OF CARE TEST ENTER/EDIT ORDERABLES Final Result * (ABNORMAL) POCT Glucose (04/01/2025 8:54 AM EDT) [facility] Glucose Blood, POC 124(A) 60 - 200 mg/dL QC Media Lot # [id number] Lot# Expiration Date Blood Capillary blood specimen / Unknown 04/01/2025 8:54 AM EDT Daron Crespo MD POINT OF CARE TEST ENTER/EDIT ORDERABLES Final Result * ECG 12 lead (01/25/2025 4:02 PM EDT) Chang Cherry MD ECG ORDERABLES Final Res ult * Lipid Panel, Standard (10/14/2023 9:21 AM EDT) [facility] Triglycerides 118 <150 mg/dL [facility] Comment:Desirable Triglyceri de: less than 150 mg/dLBorderline High Triglyceride 150-199 mg/dLHigh Triglyceride: 200-499 mg/dLVery High Triglyceride: greater than or equal to 5OO mg/dL Cholesterol 150 <200 mg/dL [facility] Comment:Desirable Cholestero l: less than 200 mg/dLBorderline High Cholesterol: 200-239 mg/dLHigh Cholesterol: greater than 239 mg/dL LDL Cholesterol Calculated 85 <100 mg/dL [facility] Comment:Desirable LDL: less than 100 mg/dLNear Optimal/Above Optimal LDL: 110- 129 mg/dLBorderline High LDL: 130-159 mg/dLHigh LDL: 160-189 mg/dLVery High LDL: greater than or equal to 190 mg/dL HDL Cholesterol 42 >40 mg/dL [facility] Comment:Desirable HDL: great er than 40 mg/dL Note: This HDL assay may give artificially low results in patients with liver disease. Blood Venous blood specimen / Unknown 10/14/2023 9:21 AM EDT 10/14/2023 2:36 PM EDT Daron Crespo MD LAB BLOOD ORDERABL ES Final Result [facility] [address] [place] [phone] * Hm Colonoscopy (08/23/2023 8:54 AM EST) Chang Cherry MD HEALTH MAINTENANCE Final Result * Hepatitis C Antibody with Reflex to HCV, RNA, Quantitative, Real-Time PCR (10/26/2022 9:11 AM EDT) Hepatitis C Antibody NON-REACT ALEJANDRA NON-REACT ALEJANDRA [facility] Index 0.07 <1.00 [facility] Comment: HCV antibody was non-reactive. There is no laboratory evidence of HCV infection. In most cases, no further action is required. However, if recent HCV exposure is suspected, a test for HCV RNA (test code 04357) is suggested. For additional information please refer to http://education.[employer] Media/faq/MLY87m9 (This link is being provided for informational/ educational purposes only.) Blood Venous blood specimen / Unknown 10/26/2022 9:11 AM EDT 10/26/2022 9:12 AM EDT Narrative [facility] - 10/27/2022 6:06 PM EDT FASTING:YES AN UPDATE OR CORRECTION HAS BEEN MADE TO NAME FASTING: YES Daron Crespo MD LAB BLOOD ORDERABL ES Final Result [facility] [address] [facility], [place] [address] [facility] [address] [place] [address] from Last 3 Months or Most Recently Relevant to Health Maintenance Insurance MEDICARE [facility]EX [facility]ARE [facility] Care Teams Copy Center Associate Relationship Specialty Start Date End Date Daron Guardado MD [address] [place] [id number] PCP - General Internal Medicine 04/26/20
--- OUTSIDE RECORDS SUMMARY | 2025-04-02 15:53 | XMS_ITS | Encounter Summary ---
Author Organization [employer] Address [address] [facility] 7t [place] [address] Care Team Providers Care Vault Cashier Name Role Phone Daron Guardado MD Primary Care Prov ider Encounter Details Date Type Department Care Team (Late Contact Info) Description 11/24/2022 Orders Only [facility] MED & PEDS [address] [place], [place] [phone] Daron Guardado MD [address] [place] [address] Social History Tobacco Use Types Packs/Day Years [...] Travel Start Travel End [place] 03/14/2025 03/18/2025 COVID-19 Exposure Response Date Recorded In the last 10 days, have yo u been in contact with someone who was confirmed or suspected to have Coronavirus/COVID-19? No / Unsure 11/21/2022 9:54 AM EDT documented as of this encounter Plan of Treatment Upcoming Encounters Date Type Department Care Team (Late Contact Info) Description 04/12/2025 8:00 AM EDT Office Visit [facility] ADULT DENTAL [address] [place] [address] Dylan Buitrago documented as of this encounter Visit Diagnoses Not on filedocumented in this encounter Additional Health Concerns Assessment Noted Time PHQ-9 Depression Total Score: 0 10/27/19 23 8:56 AM EDT documented as of this encounter Care Teams Vault Cashier Relationship Specialty Start Date End Date Daron Guardado MD [address] [place] [address] PCP - General Internal Medicine 04/26/20 documented as of this encounter
--- OUTSIDE RECORDS SUMMARY | 2025-04-02 15:53 | XMS_ITS | Encounter Summary ---
Author Organization [employer] Address [address] [facility] 7t [place] [address] Care Team Providers Care Silvering Applicator Name Role Phone Daron Guardado MD Primary Care Prov ider Reason for Visit * Reason Comments Med Refill Encounter Details Date Type Department Care Team ([facility] Contact Info) Description 06/18/2024 Refill [facility] CHC MED & PEDS [address] [place] [address] Daron Guardado MD [address] [place] [address] Social History Tobacco Use Types Packs/Day Years [...] 04/12/2025 8:00 AM EDT Office Visit [facility] ADULT DENTAL [address] [place] [address] Dylan Buitrago documented as of this encounter Visit Diagnoses Not on filedocumented in this encounter Additional Health Concerns Assessment Noted Time PHQ-9 Depression Total Score: 0 10/27/19 23 8:56 AM EDT documented as of this encounter Care Teams Silvering Applicator Relationship Specialty Start Date End Date Daron Guardado MD [address] [place] [address] PCP - General Internal Medicine 04/26/20 documented as of this encounter
--- OUTSIDE RECORDS SUMMARY | 2025-04-02 15:53 | XMS_ITS | Encounter Summary ---
Author Organization [employer] Address [address] [facility] 7 [place] [address] Care Team Providers Care Poultry Dressing Worker Name Role Phone Daron Guardado MD Primary Care Prov ider Reason for Visit * Reason Onset Date Comments chart prep 03/31/2025 Encounter Details Date Type Department Care Team ([facility] st Contact Info) Description 03/31/[address] [facility] CHC MED & PEDS [address] [place] [address] Daron Guardado MD [address] [place] [address] chart prep Social History Tobacco Use Types Packs/Day Years [...] your housing situation today? I have john tillamn 08/17/[address] you li [...] 03/14/2025 03/18/2025 documented as of this encounter Miscellaneous Notes * Telephone Encounter - Missy Mora [place] - 03/31/2025 1:53 PM EDT Chart Prep Labs: done Images: done Referrals: not applicable Vaccines due: Covid and Flu Screenings: eye exam Overdue care gaps: A1c and Glucose documented in this encounter Plan of Treatment Upcoming Encounters Date Type Department Care Team (Late st Contact Info) Description 04/12/2025 8:00 AM EDT Office Visit [facility] ADULT DENTAL [address] [place] [address] Dylan Buitrago documented as of this encounter Visit Diagnoses Not on filedocumented in this encounter Additional Health Concerns Assessment Noted Time PHQ-9 Depression Total Score: 0 08/17/19 25 8:48 AM EST documented as of this encounter Care Teams Poultry Dressing Worker Relationship Specialty Start Date End Date Daron Guardado MD [address] [place] [address] PCP - General Internal Medicine 04/26/20 documented as of this encounter
--- OUTSIDE RECORDS SUMMARY | 2025-04-02 15:53 | XMS_ITS | Encounter Summary ---
Author Organization [employer] Address [address] [facility] 7 [place] [address] Care Team Providers Care Jewelry Internship Name Role Phone Daron Guardado MD Primary Care Prov ider Reason for Visit * Reason Onset Date Comments Med Refill 06/19/2024 Encounter Details Date Type Department Care Team ([facility] st Contact Info) Description 06/19/2024 Refill [facility] MED & PEDS [address] [place] [address] Daron Guardado MD [address] [place] [address] Social History Tobacco Use Types Packs/Day Years [...] EDT Travel History Travel Start Travel End [place] 03/14/2025 03/18/2025 documented as of this encounter Plan of Treatment Upcoming Encounters Date Type Department Care Team ([facility] st Contact Info) Description 04/12/2025 8:00 AM EDT Office Visit [facility] ADULT DENTAL [address] [place] [address] Dylan Buitrago documented as of this encounter Visit Diagnoses Not on filedocumented in this encounter Additional Health Concerns Assessment Noted Time PHQ-9 Depression Total Score: 0 10/27/19 23 8:56 AM EDT documented as of this encounter Care Teams Jewelry Internship Relationship Specialty Start Date End Date Daron Guardado MD [address] [place] [address] PCP - General Internal Medicine 04/26/20 documented as of this encounter
--- OUTSIDE RECORDS SUMMARY | 2025-04-02 15:53 | XMS_ITS | Encounter Summary ---
Author Organization [employer] Address [address] [facility] 7t [place] [address] Care Team Providers Care Upper Inspector Name Role Phone Daron Guardado MD Primary Care Prov ider Encounter Details Date Type Department Care Team ([facility] Contact Info) Description 02/28/2023 Orders Only [facility] MED & PEDS [address] [place] [address] Daron Guardado MD [address] [place] [address] Social History Tobacco Use Types Packs/Day Years [...] EDT Travel History Travel Start Travel End [place] 03/14/2025 03/18/2025 documented as of this encounter Plan of Treatment Upcoming Encounters Date Type Department Care Team ([facility] Contact Info) Description 04/12/2025 8:00 AM EDT Office Visit [facility] ADULT DENTAL [address] [place] [address] Dylan Buitrago documented as of this encounter Visit Diagnoses Not on filedocumented in this encounter Additional Health Concerns Assessment Noted Time PHQ-9 Depression Total Score: 0 10/27/19 23 8:56 AM EDT documented as of this encounter Care Teams Upper Inspector Relationship Specialty Start Date End Date Daron Guardado MD [address] [place] [address] PCP - General Internal Medicine 04/26/20 documented as of this encounter
--- OUTSIDE RECORDS SUMMARY | 2025-04-02 15:53 | XMS_ITS | Encounter Summary ---
Author Organization [employer] Address [address] [facility] 7t [place] [address] Care Team Providers Care Dyer Assistant Name Role Phone Daron Guardado MD Primary Care Prov ider Encounter Details Date Type Department Care Team ([facility] st Contact Info) Description 07/30/2024 Orders Only [facility] MED & PEDS [address] [place], [place] [phone] Daron Guardado MD [address] [place] [address] Social History Tobacco Use Types Packs/Day Years [...] EDT Travel History Travel Start Travel End [place] 03/14/2025 03/18/2025 documented as of this encounter Plan of Treatment Upcoming Encounters Date Type Department Care Team ([facility] st Contact Info) Description 04/12/2025 8:00 AM EDT Office Visit [facility] ADULT DENTAL [address] [place] [address] Dylan Buitrago documented as of this encounter Visit Diagnoses Not on filedocumented in this encounter Additional Health Concerns Assessment Noted Time PHQ-9 Depression Total Score: 0 10/27/19 23 8:56 AM EDT documented as of this encounter Care Teams Dyer Assistant Relationship Specialty Start Date End Date Daron Guardado MD [address] [place] [address] PCP - General Internal Medicine 04/26/20 documented as of this encounter
--- OUTSIDE RECORDS SUMMARY | 2025-04-02 15:53 | XMS_ITS | Patient Health Record ---
Author Organization [facility] Address [address] [place] [address] Care Team Providers Care Batch Heat Treat Operator Name Role Phone Luan lao, Daron Primary Care Prov ider Unavailable Mathew Eduardo Unavailable [phone] Allergies No Known Allergies Reason For Referral [...] Problem Status W/U Status Risk Notes Problem [id number] Encounter for screening for malignant neoplasm of colon (Z12.11) Active confirmed Problem History of polyp of colon (situation) (199388234) Personal history of colonic polyps (Z86.010) Active confirmed Problem Diverticular disease of colon (987714289) Diverticulosis of large intestine without perforation or abscess without bleeding (K57.30) Active confirmed Problem [id number] Preprocedural examination (Z01.818) Active confirmed Problem 210888294 History of colon polyps (Z86.010) Active confirmed Problem 738794476 Hx of adenomatou s colonic polyps (Z86.010) Active confirmed Problem 686257160 Current use of nursing home anticoagulation (Z79.01) Active confirmed Problem 059450422 Hx of adenomatou s polyp of colon (Z86.010) Active confirmed Plan Of Treatment Future Test Test Name Order Date COLONOSCOPY 03/21/2018 COLONOSCOPY 05/28/2023 Insurance Providers Payer Name Payer Address Payer Phone Subscriber Number Group Number Insured Name Patient Relationship to Insured Coverage Start Date Coverage End Date MEDICARE OF [place] [address] [facility] [place] [address] [phone] [id number] CAROLINE QUIGLEY Self - patient is the insured [employer] CLAIMS [address] [place] [address] [id number] CAROLINE QUIGLEY Self - patient is the insured Medical (General) History Medical History History ICD Code NIDDM Hypertension Denies [place],CVA,Lung disease,renal disease Prostatitis/BPH 2 or [address] s at [facility]--most recent one was > 5 years ago--he [...]
--- OUTSIDE RECORDS SUMMARY | 2025-04-02 15:53 | XMS_ITS | Encounter Summary ---
Author Organization [employer] Address [address] [place] [address] Care Team Providers Care Airplane Pilot Photogrammetry Name Role Phone Daron Guardado MD Primary Care Prov ider Encounter Details Date Type Department Care Team ([facility] st Contact Info) Description 10/24/2023 Orders Only [facility] [address] [place] [address] ProviderChang MD Social History Tobacco Use Types [...] 04/12/2025 8:00 AM EDT [facility] [address] [place] [address] Dylan Buitrago documented as of this encounter [...] documented as of this encounter Care Teams Airplane Pilot Photogrammetry Relationship Specialty Start Date End Date Daron Guardado MD [address] [place] [address] PCP - General Internal Medicine 04/26/20 documented as of this encounter
--- OUTSIDE RECORDS SUMMARY | 2025-04-02 15:53 | XMS_ITS | Encounter Summary ---
Author Organization [employer] Address [address] [facility] [address]t [place] [address] Care Team Providers Care Circuitry Negative Inspector Name Role Phone Daron Guardado MD Primary Care Prov ider Encounter Details Date Type Department Care Team (Latest Contact Info) Description 11/28/2018 Abstract [facility] CONVERSIONS Dental, Provider, DDS Social History [...] Description 04/12/2025 8:00 AM EDT Office Visit [facility] ADULT DENTAL [address] [place] [address] Dylan Buitrago documented as of this encounter Visit Diagnoses Not on filedocumented in this encounter Care Teams Circuitry Negative Inspector Relationship Specialty Start Date End Date Daron Guardado MD [address] [place] [address] PCP - General Internal Medicine 04/26/20 documented as of this encounter
--- OUTSIDE RECORDS SUMMARY | 2025-04-02 15:54 | XMS_ITS | Encounter Summary ---
Author Organization [employer] Address [address] [facility] [address]t [place] [address] Care Team Providers Care Import Export Manager Name Role Phone Daron Guardado MD Primary Care Prov ider Encounter Details Date Type Department Care Team ([facility] Contact Info) Description 04/24/2023 Orders Only [facility] CH[facility] MED & PEDS [address] [place], [place] [phone] Daron Guardado MD [address] [place] [address] Social History Tobacco Use Types Packs/Day Years [...] EDT Travel History Travel Start Travel End [place] 03/14/2025 03/18/2025 documented as of this encounter Plan of Treatment Upcoming Encounters Date Type Department Care Team ([facility] st Contact Info) Description 04/12/2025 8:00 AM EDT [facility] [address] [place] [address] Dylan Buitrago documented as of this encounter Visit Diagnoses Not on filedocumented in this encounter Additional Health Concerns Assessment Noted Time PHQ-9 Depression Total Score: 0 10/27/19 23 8:56 AM EDT documented as of this encounter Care Teams Import Export Manager Relationship Specialty Start Date End Date Daron Guardado MD [address] [place] [address] PCP - General Internal Medicine 04/26/20 documented as of this encounter
--- OUTSIDE RECORDS SUMMARY | 2025-04-02 15:54 | XMS_ITS | Encounter Summary ---
Author Organization [employer] Address [address] [place] [address] Care Team Providers Care Shipping And Receiving Name Role Phone Daron Guardado MD Primary Care Prov ider Encounter Details Date Type Department Care Team (Latest Contact Info) Description 04/01/2025 Travel Social History Tobacco Use Types Packs/Day Years [...] EDT Travel History Travel Start Travel End [place] 03/14/2025 03/18/2025 documented as of this encounter Plan of Treatment Upcoming Encounters Date Type Department Care Team ([facility] st Contact Info) Description 04/12/2025 8:00 AM EDT Office Visit [facility] CHC ADULT DENTAL [address] [place] [address] Dylan Buitrago documented as of this encounter Visit Diagnoses Not on filedocumented in this encounter Additional Health Concerns Assessment Noted Time PHQ-9 Depression Total Score: 0 08/17/19 25 8:48 AM EST documented as of this encounter Care Teams Shipping And Receiving Relationship Specialty Start Date End Date Daron Guardado MD [address] [place] [address] PCP - General Internal Medicine 04/26/20 documented as of this encounter
--- OUTSIDE RECORDS SUMMARY | 2025-04-02 15:54 | XMS_ITS | Clinical Summary ---
Author Organization [facility] Address [address] [address] Phone Care Team Providers Care Wash Tub Machine Operator Name Role Phone Ashely Leach MD Primary Care Provider [phone] Allergies No known active allergies Medications atorvastatin [...] Active ferrous sulfate 325 mg (65 mg false pass iron) tablet Take 325 mg by mouth [...] 1955 BLOOD PRESSURE 1955 DEPRESSION SCREENING 1965 SMOKING Hx and SMOKELESS TOBACCO SCREENING 1966 HEPATITIS C SCREENING 11/12/1971 COLOGUARD 1998 FIT TEST 1998 FOBT 1998 SIGMOIDOSCOPY 1998 VIRTUAL COLONOSCOPY 1998 PNEUMOCOCCAL VACCINES (50+ years) (1 of 1 - PCV) 11/12/2003 ZOSTER VACCINES (1 of 2) 11/12/2003 CREATININE LEVEL 01/11/2016 01/10/2015, 04/12/2014, 07/21/2013 COLONOSCOPY 05/26/2018 05/26/2008 COLORECTAL CANCER SCREENING 05/26/2018 LIPID PANEL 01/11/2020 01/10/2015, 04/12/2014, 07/21/2013 INFLUENZA VACCINE (#1) 2025 COVID-19 VACCINE (1 - 2023-2 5 season) 2025 RSV VACCINE (1 - 1-dose 75+ series) [...] Date/Time Associated Diagnosis Comments CHEMISTRY TEST - [facility] Routine 01/10/2015 4:29 PM EDT CHEMISTRY TEST - [facility] Routine 01/10/2015 4:29 PM EDT ENDOSCOPY, COLON 05/26/2008 10:1 0 AM EST from Last 3 Months or Most Recently Relevant to Health Maintenance Results * Chemistry Test - [facility] (01/10/2015 4:29 PM EDT) Only the most recent of2 resultswithin the time period is included. Cholesterol 147 100 - 199 mg/dL [facility] HDL 52 40 - 77 mg/dL [facility] non-HDL CHOL 95.0 mg/dL [facility] Comment:Goal is LDL Goal + 3 0 mg/dL TCHOL/HDL ratio 2.8 [facility] Comment: Cardiovascular Risk Assessment MEN WOMEN Risk Assessment 3.43 3.27 Below Average 4.97 4.44 Average 9.55 7.05 Above Average 23.39 11.04 3X Above Average Direct LDL w/billing 74 0 - 130 mg/dL [facility] 01/10/2015 4:29 PM EDT 01/10/2015 4:29 PM EDT us Ray Araiza MD LAB BLOOD ORDERABLES Final Res ult [facility] [address] [place] [address] * ENDOSCOPY, COLON (05/26/2008 10:10 AM EST) 05/26/2008 10:1 0 AM EST Narrative 05/26/2008 10:10 AM EST Report Number: [id number] Report Status: Final Type: Colonoscopy Date: 05/26/2008 10:10 [facility] OPERATIVE PROCEDURE REPORT - 05/26/2008 PATIENT: Cory Rodriguez MR: [id number] BIRTHDATE: 1955 GENDER: male ENDOSCOPIST: Miguelangel Carr [...] 05/26/2008 11:02 AM OPERATIVE REPORT Cory Rodriguez, [id number] Procedure Note Miguelangel Carr MD - 05/26/2008 10:10 AM EST Report Number: [id number] Report Status: Final Type: Colonoscopy Date: 05/26/2008 10:10 [facility] OPERATIVE PROCEDURE REPORT - 05/26/2008 PATIENT: Cory Rodriguez MR: [id number] BIRTHDATE: 1955 GENDER: male ENDOSCOPIST: Miguelangel Carr [...] 05/26/2008 11:02 AM OPERATIVE REPORT Cory Rodriguez, [id number] us Conversion Provider Not In Sys GI PROCEDURE ORDE RABLES Final Result from Last 3 Months or Most Recently Relevant to Health Maintenance Insurance MEDICARE PART A & B [employer] SUPPLEMENT MEDICARE PART A & B [employer]EX SUPPLEMENT MEDICARE PART A & B [employer] SUPPLEMENT MEDICARE PART A & B [employer] SUPPLEMENT MEDICARE PART A & B [employer] SUPPLEMENT MEDICARE PART A & B [employer] MEDEX SUPPLEMENT MEDICARE PART A & B [employer] MEDEX SUPPLEMENT MEDICARE PART A & B [employer] MEDEX SUPPLEMENT MEDICARE PART A & B [employer] MEDEX SUPPLEMENT Care Teams Wash Tub Machine Operator Relationship Specialty Start Date End Date Ashely Leach MD [address] [place] [address] PCP - General Family Medicine 12/02/18 Additional Source Comments The information contained in this document represents components of the legal health record. It is not the complete legal health record.[facility]
--- OUTSIDE RECORDS SUMMARY | 2025-04-02 15:54 | XMS_ITS | Encounter Summary ---
Author Organization [employer] Address [address] [place] [address] Care Team Providers Care Small Arms Repairer Name Role Phone Daron Guardado MD Primary Care Prov ider Reason for Visit * Reason Comments Med Refill Encounter Details Date Type Department Care Team ([facility] st Contact Info) Description 10/07/2023 Refill [facility] CHC MED & PEDS [address] [place] [address] Daron Guardado MD [address] [place] [address] Social History Tobacco Use Types Packs/Day Years [...] Description 04/12/2025 8:00 AM EDT Office Visit [facility] ADULT DENTAL [address] [place] [address] Dylan Buitrago documented as of this encounter Visit Diagnoses Not on filedocumented in this encounter Additional Health Concerns Assessment Noted Time PHQ-9 Depression Total Score: 0 10/27/19 23 8:56 AM EDT documented as of this encounter Care Teams Small Arms Repairer Relationship Specialty Start Date End Date Daron Guardado MD [address] [place] [address] PCP - General Internal Medicine 04/26/20 documented as of this encounter
--- OUTSIDE RECORDS SUMMARY | 2025-04-02 15:54 | XMS_ITS | Encounter Summary ---
Author Organization [employer] Address [address] [facility] [address] [place] [address] Care Team Providers Care Flexographic Press Plate Setter Name Role Phone Daron Guardado MD Primary Care Prov ider Encounter Details Date Type Department Care Team ([facility] st Contact Info) Description 08/05/2023 Orders Only [facility] CHC MED & PEDS [address] [place], [place] [phone] Daron Guardado MD [address] [place] [address] Social History Tobacco Use Types Packs/Day Years [...] EDT Travel History Travel Start Travel End [place] 03/14/2025 03/18/2025 documented as of this encounter Plan of Treatment Upcoming Encounters Date Type Department Care Team ([facility] st Contact Info) Description 04/12/2025 8:00 AM EDT Office Visit [facility] ADULT DENTAL [address] [place] [address] Dylan Buitrago documented as of this encounter Visit Diagnoses Not on filedocumented in this encounter Additional Health Concerns Assessment Noted Time PHQ-9 Depression Total Score: 0 10/27/19 23 8:56 AM EDT documented as of this encounter Care Teams Flexographic Press Plate Setter Relationship Specialty Start Date End Date Daron Guardado MD [address] [place] [address] PCP - General Internal Medicine 04/26/20 documented as of this encounter
[2025-04-02 18:04] LABS: MANUAL DIFF FLAG NO
[2025-04-02 18:12] LABS: Hematocrit 35.8 % (42.0-52.0); Hemoglobin 12.0 g/dl (14.0-18.0); Imm Gran Abs Auto 0.02 X10*3/uL (0.00-0.03); Imm Gran Pct Auto 0.4 % (0.0-0.4); Lymphocytes Absolute Auto 1.5 X10*3/uL (1.2-4.9); Mean Corpuscular HGB Conc 33.5 g/dl (31.0-36.0); Mean Corpuscular Hemoglobin 29.6 pg (27.0-33.0); Mean Corpuscular Volume 88.2 fL (80.0-98.0); NRBC Abs Auto 0.000 X10*3/uL (0.0-0.012); NRBC Pct Auto 0.0 /100WBC (0.0-0.2); Platelet Count 173 X10*3/uL (160-400); Red Blood Count 4.06 X10*6/uL (4.60-5.80); White Blood Count 5.5 X10*3/uL (4.8-10.8)
[2025-04-02 18:45] LABS: Iron 54 mcg/dL (45-160); Percent Iron Saturation 20 % (15-50); Total Iron Binding Capacity 275 mcg/dL (228-428); Unsaturated Iron Binding 221 ug/dL
[2025-04-02 18:58] LABS: Folate 15.4 ng/mL (> or = 4.0); Vitamin B12 883 pg/mL (200-900)
[2025-04-08 16:03] LABS: Testosterone, Free 68.8 pg/mL (30.0-135.0)
== END 2025-04-02 15:28 | disposition home or self-care (01) ==
LOC: HO.CHCLDS 15:27
PROVIDERS: Visit Provider Internal Medicine
DX: R53.83 Other fatigue (principal); D50.9 Iron deficiency anemia, unspecified
CPT/HCPCS: 36415; 82607; 82746; 83540; 84402; 84403; 84443; 85025